=== PATIENT | male | born 1970 | race African-American/Black ===

== ENCOUNTER 2017-06-18 17:41 | Observation (INO) | payer SELFPAY ==
[2017-06-18 18:59] LABS: Troponin I 0.099 ng/mL (< 0.028)
[2017-06-18] MEDS ORDERED: Morphine 4 MG/ML VIAL ONE (19:10)
[2017-06-18] MEDS ORDERED: Nitroglycerin 2% Ointment 1 INCH/1 GM Packet ONE (19:11)
[2017-06-18] MEDS ORDERED: Ondansetron ODT 4 MG TAB ONE (19:11)
[2017-06-18] MEDS ORDERED: Ondansetron HCl/PF 4 MG/2 ML Vial IVP PRN (22:16)
[2017-06-18] MEDS ORDERED: Ondansetron ODT 4 MG TAB SL PRN (22:16)
[2017-06-18] MEDS ORDERED: Nitroglycerin 2% Ointment 1 INCH/1 GM Packet TOP SCH (22:30)
[2017-06-18 22:31] VITALS: BMI 36.6
[2017-06-18 22:46] LABS: Troponin I 0.093 ng/mL (< 0.028)
[2017-06-18] MEDS ORDERED: Nitroglycerin 0.4 MG TAB (25 Tab Bottle) PO PRN (23:28)
[2017-06-18] MEDS ORDERED: Senokot 8.6 MG TAB PO PRN (23:28)
[2017-06-18] MEDS ORDERED: Calcium Carbonate 500 MG ChewTAB PO PRN (23:28)
[2017-06-18] MEDS ORDERED: Labetalol HCl 100 MG/20 ML VIAL SLOW IVP PRN (23:31)
[2017-06-18] MEDS ORDERED: cloNIDine 0.1 MG TAB PO PRN (23:32)
--- NOTE | 2017-06-18 23:58 | HP ---
DATE OF ADMISSION: 06/18/2017 PRIMARY CARE PHYSICIAN: Brien Taylor M.D. PRIMARY PULLBOAT ENGINEER: Tello Alvarado M.D. CHIEF COMPLAINT: Chest discomfort. HISTORY OF PRESENT ILLNESS: The patient is a 46-year-old male with chronic systolic heart failure, s tatus post AICD; coronary artery disease, status post stent; hypertension; dyslipidemia; and chronic kidney disease, presented to the emergency room at [facility] with chest discomfort that has been o ngoing for the last 24 to 48 hours. It is substernal, worse on movement. The pain radiates to his l eft arm and between the scapula. It is more or less constant associated with nausea, diaphoresis, li ghtheadedness, and palpitations. He had one episode of syncope earlier today that lasted for 2 secon ds. He denies injuries or falls secondary to syncope. He denies recent immobilization, travel, feve r, chills, heartburn, cough, shortness of breath or wheezing. PAST MEDICAL HISTORY: 1. Chronic systolic heart failure, status post AICD. 2. Coronary artery disease, status post stent placement at [facility]. 3. Dyslipidemia. 4. Gastroesophageal reflux disease. 5. Chronic kidney disease stage 3. 6. Hypertension. PAST SURGICAL HISTORY: 1. AICD placement in 2006 with generator replacement in 2017. 2. Cardiac catheterization in 2013 at this facility. He had stents placed at [facility]. ALLERGIES: The patient is allergic to PENICILLIN. CURRENT HOME MEDICATIONS: The patient is unable to recall all of his home medications. Family to br ing accurate list of medications. SOCIAL HISTORY: The patient currently lives at home with his family. He is , at the bed side. is the DPOA. No current use of tobacco, alcohol, or drug use. FAMILY HISTORY: Positive for hypertension and congestive heart failure. REVIEW OF SYSTEMS: The following complete review of systems was negative, unless otherwise mentioned in the HPI or below: Constitutional: Weight loss or gain, ability to conduct usual activities. Sk in: Rash, itching. Eyes: Double vision, pain. ENT/Mouth: Nose bleeding, neck stiffness, pain, ten derness. Cardiovascular: Palpitations, dyspnea on exertion, orthopnea. Respiratory: Shortness of breath, wheezing, cough, hemoptysis, fever or night sweats. Gastrointestinal: Poor appetite, abdomi nal pain, heartburn, nausea, vomiting, constipation, or diarrhea. Genitourinary: Urgency, frequency , dysuria, nocturia. Musculoskeletal: Pain, swelling. Neurologic/Psychiatric: Anxiety, depression . Allergy/Immunologic: Skin rash, bleeding tendency. PHYSICAL EXAMINATION: VITAL SIGNS: In the emergency room showed temperature 98.4, respiration 18, pulse rate of 78 with a blood pressure 185/113 with O2 saturation 96% on room air. GENERAL: A 46-year-old male in no apparent distress. Denies any chest discomfort at this time. HEENT: Head atraumatic, normocephalic. Sclerae are anicteric. Moist mucous membranes. No oral les ion. NECK: Supple, no JVD appreciated. No carotid bruit. LUNGS: Clear to auscultation bilaterally, no wheezing, rales, or rhonchi. HEART: S1, S2 present. Regular rate and rhythm. No significant rubs or gallops appreciated. ABDOMEN: Soft, nontender, somewhat distended per patient report. Bowel sounds present. EXTREMITIES: No edema or calf tenderness. NEUROLOGIC: Grossly nonfocal, moves all four extremities. PSYCHIATRY: Alert, awake, oriented x3. SKIN: Warm and dry. LYMPH NODES: No palpable lymph nodes in the neck. PERIPHERAL VASCULAR: Radial pulses palpable bilaterally. MUSCULOSKELETAL: No joint swelling or tenderness. LABORATORY FINDINGS: EKG by my review showed sinus bradycardia with nonspecific ST-T wave changes in lateral leads. Troponin was 0.117. Repeat troponin 0.099. Creatinine was 2.06 with potassium 3.8, sodium 141. Chest x-ray by my review was negative for infiltrate or edema. It showed cardiomegaly. IMPRESSION AND PLAN: 1. Chest discomfort, rule out acute coronary syndrome. Cardiology will be consulted. The patient w ill be kept n.p.o. past midnight. He has a history of stent placement at [facility]. He had a last card iac catheterization at this facility in 2013. His last echocardiogram in 2016 showed left ventricula r ejection fraction of 60%-65% with left ventricular hypertrophy. 2. Syncope that lasted for [address] [facility] has been notified. His device will be interrogated . Await Cardiology input. 3. Hypertension with hypertensive heart disease. We will resume home medications once confirmed. W e will continue nitropatch for now. 4. Chronic kidney disease stage 3. We will avoid nephrotoxic agents. We will hold JASVIR inhibitor du e to renal insufficiency. 5. Coronary artery disease, status post stent placement. Plan as discussed above. 6. Indeterminate troponins, probably secondary to demand ischemia. 7. Dyslipidemia. We will resume statins once medications confirmed. 8. PENICILLIN allergy. 9. Obesity with a BMI of 36.7. Plan of care was discussed with the patient in detail, he stated understanding
[2017-06-19 01:41] LABS: Troponin I 0.096 ng/mL (< 0.028)
[2017-06-19] MEDS: Acetaminophen 325 MG TAB PO PRN ×2 (03:14→23:34)
[2017-06-19] MEDS ORDERED: Morphine 4 MG/ML VIAL IV PRN (07:59)
[2017-06-19] MEDS ORDERED: Morphine 4 MG/ML VIAL IV SCH (08:00)
[2017-06-19] MEDS ORDERED: Carvedilol 25 MG TAB PO SCH (08:00)
[2017-06-19] MEDS ORDERED: Aspirin 325 MG TAB PO SCH (09:00)
[2017-06-19] MEDS ORDERED: NIFEdipine XL 60 MG TAB PO SCH (09:00)
[2017-06-19] MEDS ORDERED: hydrALAZINE 20 MG/ML VIAL SLOW IVP PRN (10:09)
[2017-06-19] MEDS ORDERED: cloNIDine 0.3 MG TAB PO SCH ×2 (12:30→21:00)
--- NOTE | 2017-06-19 13:42 | CON ---
DATE OF CONSULTATION: 06/19/2017 HISTORY OF PRESENT ILLNESS: Patient is a 46-year-old gentleman who presents for evaluation of chest discomfort and syncope. The patient has a previous history of coronary artery disease. He apparently suffered a myocardial infarction in 2006. He subsequently has undergone placement of automatic implantable cardiac defibrillator. The patient presented in 2013 with chest pain and he underwent cardiac catheterization. He was found to have normal coronary arteries. The patient also has been admitted on several occasions with chest discomfort. He has undergone a Cardiolite stress test which has revealed normal ejection and no evidence of ischemia. The patient also has a history of syncope. He underwent an EP evaluation in 12/2016. The patient states that he has continued to have chest discomfort. He has had several times a week discomfort that can last up to 30 minutes. He reports chest pain with exertion. The patient states that he presented with left-sided chest pain that has been continuous for the past 2 days. It is made worse whenever with movement. He states that he still continues to feel discomfort PAST MEDICAL HISTORY: 1. Hypertension. 2. History of coronary artery disease. 3. Chronic renal insufficiency. 4. Hypertension. 5. Dyslipidemia. PAST SURGICAL HISTORY: None. ALLERGIES: PENICILLIN. SOCIAL HISTORY: Nonsmoker. FAMILY HISTORY: Positive family history of heart disease. MEDICATIONS: See nursing list. REVIEW OF SYSTEMS: Ten-point system noticeable for weight loss. PHYSICAL EXAMINATION: GENERAL: Obese gentleman in no acute distress. VITAL SIGNS: Blood pressure is 171/98. NECK: No jugular vein distention. LUNGS: Clear to auscultation. HEART: Regular rate and rhythm, normal S1, S2, no murmurs. ABDOMEN: Nondistended. EXTREMITIES: Showed no edema. SKIN: Warm and dry. LABORATORY DATA AND IMAGING DATA: His white blood cell count 7.1, hemoglobin 14.3, hematocrit 43.8, his platelets are 288. His sodium was 141, potassium 3.8 , chloride 108, bicarbonate 20, BUN 17, creatinine is 2.0. Troponin was 0.096. His EKG revealed him to have normal sinus rhythm and otherwise unremarkable ECG. IMPRESSION: 1. Atypical chest pain. 2. Hypertension, poorly controlled. 3. Chronic renal insufficiency. 4. History of coronary artery disease. 5. History of an automatic implantable cardiac defibrillator. 6. Dyslipidemia. This gentleman presents with atypical chest pain. He has had a previous stress test which revealed no evidence of ischemia. The patient has atypical chest pain. He has had pain for nearly 48 hours without any significant evidence of myocardial infarction. From a cardiac standpoint, his blood pressure again is poorly controlled. We will increase the dose of his nifedipine. We will perform a repeat stress to make sure there is no evidence of ischemia.With chronic renal insufficiency, I would only proceed with cardiac catheterization if there is evidence of ischemia or objective evidence of myocardial injury. We will follow this patient with you through his hospitalization. HERMINIA
--- NOTE | 2017-06-19 14:30 | PDOC.PN ---
- Subjective Encounter Start Date: 06/19/17 Encounter Start Time: 07:00 Pt seen for followup re: chest pain. Reports on and off chest pain, no nausea or vomiting. - Objective Resuscitation Status: Resuscitation Status FULL:Full Resuscitation MAR Reviewed: Yes Vital Signs & Weight: Vital Signs (12 hours) Temp Pulse Resp BP BP Pulse Ox 06/19/17 13:14 190/115 H 06/19/17 10:57 68 18 171/98 H 93 L 06/19/17 10:16 64 06/19/17 09:40 57 L 18 191/114 H 92 L 06/19/17 08:00 66 18 92 L 06/19/17 07:58 190/115 H 06/19/17 07:57 61 190/115 H 06/19/17 07:43 98.3 F 61 12 190/116 H 06/19/17 07:31 98.4 F 60 18 06/19/17 03:00 98.4 F 60 18 166/86 H 92 L Weight Weight 248 lb 8 oz I&O: 06/18/17 06/19/17 06/20/17 06:59 06:59 06:59 Intake Total 100 Output Total 350 Balance -250 EKG Reviewed by me: Yes (Tele: NSR) Phys Exam - Physical Examination Obese HEENT: moist MMs, sclera anicteric, TM's clear, oral pharynx no lesions Neck: no nodes, no JVD, supple, full ROM Respiratory: no wheezing, no rales, no rhonchi, clear to auscultation bilateral Cardiovascular: RRR, no rub S1, s2 Gastrointestinal: soft, non-tender, no distention, positive bowel sounds Neurological: moves all 4 limbs Psychiatric: normal affect, A&O x 3 Dx/Plan (1) Chest pain Code(s): R07.9 - CHEST PAIN, UNSPECIFIED Status: Acute Comment: Monitor on telemetry, PRN nitrates and morphine, cardiology consult pending. (2) Chronic systolic heart failure Code(s): I50.22 - CHRONIC SYSTOLIC (CONGESTIVE) HEART FAILURE Status: Chronic Comment: stable (3) Dyslipidemia Code(s): E78.5 - HYPERLIPIDEMIA, UNSPECIFIED Status: Chronic Comment: continue Zetia (4) Hypertension Code(s): I10 - ESSENTIAL (PRIMARY) HYPERTENSION Status: Chronic Comment: Monitor vital signs, titrate antihypertensives as needed (5) Obesity (BMI 30-39.9) Code(s): E66.9 - OBESITY, UNSPECIFIED Status: Chronic - Plan * . Review of Systems - Review of Systems Constitutional: negative: fever, chills, sweats, weakness, malaise Respiratory: SOB with Excertion. negative: Cough, Shortness of Breath, Sputum, Wheezing Cardiovascular: chest pain. negative: palpitations, orthopnea, paroxysmal nocturnal dyspnea, edema, light headedness Gastrointestinal: negative: Nausea, Vomiting, Abdominal Pain, Diarrhea, Constipation, Melena, Hematochezia Genitourinary: negative: Dysuria, Frequency, Incontinence, Hematuria, Retention - Medications/Allergies Allergies/Adverse Reactions: Allergies Allergy/AdvReac Type Severity Reaction Status Date / Time Penicillins Allergy Severe Anaphylaxis Verified 04/03/15 22:42 Medications: Current Medications Acetaminophen (Tylenol) 650 mg PO Q4H PRN PRN Reason: Headache/Fever or Pain Last Admin: 06/19/17 03:14 Dose: 650 mg Aspirin (Aspirin) 325 mg PO DAILY [facility] Last Admin: 06/19/17 07:57 Dose: 325 mg Calcium Carbonate (Tums) 1,000 mg PO Q4H PRN PRN Reason: Heartburn or Indigestion Carvedilol (Coreg) 12.5 mg PO BID-[facility] Last Admin: 06/19/17 07:57 Dose: 12.5 mg Clonidine (Catapres) 0.1 mg PO Q4H PRN PRN Reason: Systolic BP > 180 Last Admin: 06/19/17 07:58 Dose: 0.1 mg Clonidine (Catapres) 0.3 mg PO BID [facility] Clonidine (Catapres) 0.3 mg PO NOW [facility] Stop: 06/19/17 14:30 Last Admin: 06/19/17 13:14 Dose: Not Given Hydralazine HCl (Apresoline) 10 mg SLOW IVP Q6H PRN PRN Reason: FOR SBP > 170 Last Admin: 06/19/17 10:16 Dose: 10 mg Hydralazine HCl (Apresoline) 75 mg PO TID [facility] Labetalol HCl (Normodyne) 10 mg SLOW IVP Q4H PRN PRN Reason: Systolic BP > 180 Morphine Sulfate (Morphine) 2 mg IV Q4H PRN PRN Reason: Pain Nifedipine (Procardia Xl) 60 mg PO DAILY [facility] Last Admin: 06/19/17 07:57 Dose: 60 mg Nitroglycerin (Nitrostat) 0.4 mg PO Q5MIN PRN PRN Reason: Chest Pain Last Admin: 06/19/17 03:14 Dose: 0.4 mg Ondansetron HCl (Zofran) 4 mg IVP Q6H PRN PRN Reason: Nausea/Vomiting Ondansetron HCl (Zofran Odt) 4 mg SL Q6H PRN PRN Reason: Nausea/Vomiting Last Admin: 06/19/17 03:09 Dose: 4 mg Senna (Senokot) 2 tab PO HSPRN PRN PRN Reason: Constipation Sodium Chloride (Flush - Normal Saline) 10 ml IVF PRN PRN PRN Reason: Saline Flush
[2017-06-19] MEDS ORDERED: NITROGLYCERIN 0.3 MG SL PRN (14:32)
[2017-06-19] MEDS: hydrALAZINE 25 MG TAB PO SCH ×2 (14:44→19:34)
[2017-06-19] MEDS ORDERED: hydrALAZINE 25 MG TAB PO SCH (15:00)
[2017-06-19] MEDS: Carvedilol 6.25 MG TAB PO SCH (19:33)
[2017-06-19] MEDS: cloNIDine 0.3 MG TAB PO SCH (19:34)
[2017-06-20] MEDS: hydrALAZINE 25 MG TAB PO SCH ×2 (08:13→15:20)
[2017-06-20] MEDS: cloNIDine 0.3 MG TAB PO SCH (08:15)
[2017-06-20] MEDS: Carvedilol 6.25 MG TAB PO SCH (08:16)
[2017-06-20] MEDS ORDERED: NIFEdipine XL 60 MG TAB PO SCH (09:00)
[2017-06-20] MEDS ORDERED: Ezetimibe 10 MG TAB PO SCH (09:00)
[2017-06-20] MEDS ORDERED: NIFEdipine XL 90 MG TAB PO SCH (09:00)
[2017-06-20 12:07] VITALS: BP 154/88; TEMP 97.3
--- NOTE | 2017-06-20 14:10 | PDOC.CTH ---
Cardiology Progress Note - Subjective Resting, awakens easily. Complains of shortness of breath with minimal activity , no change. Describes left-sided chest "aching", improved since yesterday. No overnight events, no cardiac events. Awaiting ST results. - ROS chest pain, shortness of breath - Objective Vital Signs Temp Pulse Resp BP BP Pulse Ox 06/20/17 12:01 97.3 F L 51 L 12 154/88 H 99 06/20/17 09:22 155/89 H 06/20/17 08:16 155/89 H 06/20/17 08:15 56 L 155/89 H 06/20/17 08:13 56 L 155/89 H 06/20/17 07:25 98.2 F 56 L 12 155/89 H 96 06/20/17 07:21 98.2 F 59 L 18 06/20/17 05:10 98.2 F 59 L 18 154/89 H 89 L Weight 248 lb 8 oz 06/19/17 06/20/17 06/21/17 06:59 06:59 06:59 Intake Total 100 1620 Output Total 350 1100 Balance -250 520 - Physical Examination General/Neuro: alert & oriented x3, NAD Neck: no JVD present Lungs: CTA, unlabored respirations Heart: RRR Abdomen: NT/ND - Telemetry Telemetry Rhythm: SR - Labs Troponin/CKMB Troponin I 0.096 ng/mL (< 0.028) H 06/19/17 01:00 - Assessment/Plan 1.CAD, s/p PCI, atypical chest pain-normal [facility] 2013, normal [employer]. Preliminary ECG stress revealed no changes, awaiting nuc images. Max trop 0.099, likely demand ischemia r/t chronic renal insufficiency. Cont ASA 81mg. 2.Chronic systolic HF-appears euvolemic. Cont carvedilol, no ACEi/ARB r/t renal insufficiency, single-chamber ICD in place, most recent Optivol level normal. 3.HTN-poorly controlled, titrate antihypertensives as tolerated, improved on increased dose nifedipine 4.Hyperlipidemia-intolerant of statins, caused myalgia. Cont ezetimibe 5.Syncope-brief episode ,no recurrence, evaluated by EP, no significant events per ICD interrogation (no VT, VF). Okay to discharge home if nuc med ST normal. Follow-up with Dr. Alvarado in [address] shows evidence of ischemia, will require further work-up.
--- NOTE | 2017-06-20 14:31 | NM ---
MYOCARDIAL PERFUSION STUDY: DATE: 06/20/17. RADIOPHARMACEUTICALS: 32 mCi Technetium 99m sestamibi, IV at stress, and 10.2 mCi Technetium 99m sestamibi, IV at rest. HISTORY: Chest pain. History of myocardial infarction and prior cardiac catheterization. The patient has cor onary artery disease and hypertension. MEDICATIONS: 20.9 mL (62.7 mg) adenosine, IV. COMPARISON: Prior myocardial perfusion study on 03/18/16. FINDINGS: There is normal uptake and distribution of radiotracer seen throughout the left ventricular myocardiu m on the resting and stress acquisitions. No reversible defect is identified. Gated images show nor mal ventricular wall motion and wall thickening. The calculated left ventricular ejection fraction i s 58%. The left ventricular ejection fraction on the prior study in 2017 was 62%. IMPRESSION: 1. Normal myocardial perfusion study without evidence of a reversible defect seen to suggest ischemi a. 2. Normal left ventricular ejection fraction of 58%. POS: SOPHY
--- NOTE | 2017-06-20 23:00 | DIS ---
PRIMARY CARE PROVIDER: Brien Taylor MD DATE OF ADMISSION: 06/18/2017 DATE OF DISCHARGE: 06/20/2017 DISCHARGE DIAGNOSES: 1. Chest pain. 2. Hypertension. CONDITION OF PATIENT ON THE DAY OF DISCHARGE: Stable. I assessed Mr. Alfonso on the day of discharge. He reports chest pain has improved. Vital signs are stable. S1 and S2 are heard, regular. Lungs are clear to auscultation bilaterally. CONSULTATIONS DURING THIS HOSPITALIZATION: Cardiology, Dr. Alvarado. HOSPITAL COURSE: Mr. Alfonso is a pleasant, 46-year-old gentleman, who was admitted to [facility] on 06/18/2017 for chest pain. He was seen by Cardiology Service, who recommended stress test. He underwent nuclear stress test on 06/20/2017, which was a normal myocardial perfusion study without evidence of reversible defect seen to suggest ischemia. He had normal left ventricula r ejection fraction of 58%. He was also found to be hypertensive during this hospitalization. His nifedipine dose has been incre ased to 90 mg daily. He has been advised to check his blood pressures and heart rate 3 times a day a nd show the readings to his primary care provider. He also had a normal D-dimer during this hospitalization. Many thanks for allowing me to participate in your patient's care. Please feel free to contact me wi th any questions or concerns. DISCHARGE MEDICATIONS: Include aspirin 81 mg daily, Coreg 12.5 mg 2 times a day, vitamin D 1000 unit s daily, clonidine 0.3 mg 2 times a day, Zetia 10 mg daily, hydralazine 75 mg 3 times a day, Procardi a-XL 90 mg daily, and nitroglycerin p.r.n. DISCHARGE DESTINATION: Home.
--- NOTE | 2017-06-27 18:14 | EKG ---
Test Reason : Blood Pressure : / mmHG Vent. Rate : 056 BPM Atrial Rate : 056 BPM P-R Int : 192 ms QRS Dur : 102 ms QT Int : 424 ms P-R-T Axes : 061 011 006 degrees QTc Int : 409 ms Sinus bradycardia Septal infarct , age undetermined Abnormal ECG Confirmed by DELORIS MCCOY MD ([id number]), associate entertainment editor NILAM DESAI ([id number]) on 06/27/2017 6:13:44 PM Referred By: Confirmed By:DELORIS MCCOY MD
== END 2017-06-20 18:03 | disposition home or self-care (01) ==
LOC: ERS 17:41 → 2SW 20:02 → SCSEROBS 06-19 09:14 → 2SW 06-19 09:17
PROVIDERS: ADMIT Internal Medicine; ATTEND Internal Medicine
DX: R07.89 Other chest pain (principal); R55 Syncope and collapse; I13.0 Hypertensive heart and chronic kidney disease with heart failure and stage 1 through stage 4 chronic kidney disease, or unspecified chronic kidney disease; N18.3 Chronic kidney disease, stage 3 (moderate); I50.22 Chronic systolic (congestive) heart failure; I25.10 Atherosclerotic heart disease of native coronary artery without angina pectoris; E78.5 Hyperlipidemia, unspecified; K21.9 Gastro-esophageal reflux disease without esophagitis; E66.9 Obesity, unspecified; Z68.36 Body mass index [BMI] 36.0-36.9, adult; Z79.82 Long term (current) use of aspirin; Z79.899 Other long term (current) drug therapy; Z88.0 Allergy status to penicillin; Z95.810 Presence of automatic (implantable) cardiac defibrillator; Z95.5 Presence of coronary angioplasty implant and graft
CPT/HCPCS: 36415; 78452; 84484; 85379; 93005; 93017; 94760; 96374; 96375; 96376; A9500; G0378; J0153; J0360; J2270; Q0162

== ENCOUNTER 2018-01-15 18:45 | Observation (INO) | payer SELFPAY ==
[2018-01-15 21:13] LABS: CKMB 1.8 ng/mL (0-6.6)
[2018-01-15] MEDS ORDERED: Ondansetron PF 4 MG/2 ML Vial IVP PRN (21:28)
[2018-01-15] MEDS ORDERED: Acetaminophen 325 MG TAB PO PRN (21:28)
[2018-01-15] MEDS ORDERED: Aspirin 300 MG Suppository PR SCH (21:30)
[2018-01-16 02:43] LABS: #Eosinphils 0.2 thou/uL (0.0-0.7); #Lymphocytes 1.5 thou/uL (1.20-3.40); #Monocytes 0.6 thou/uL (0.11-0.59); %Basophils 0.4 % (0.0-1.0); %Eosinophils 2.8 % (0.0-10.0); %Monocytes 7.7 % (0.0-10.0); %Neutrophils 69.1 % (42.0-75.0); Hemoglobin 14.3 g/dL (14.0-18.0); Mean Corpuscular Hemoglobin 28.3 pg (27.0-31.0); Mean Corpuscular Volume 83.4 fL (78.0-98.0); Platelet Count 307 thou/uL (130-400); Red Blood Cell (RBC) Count 5.04 mill/uL (4.70-6.10); White Blood Cell (WBC) Count 7.3 thou/uL (4.8-10.8)
[2018-01-16 03:31] LABS: CKMB 1.5 ng/mL (0-6.6)
[2018-01-16 03:55] LABS: Anion Gap 13 mmol/L (10-20); BUN (Urea Nitrogen) 18 mg/dL (8.9-20.6); Calc. Creatinine Clearance 90 mL/min (70-130); Calcium 9.4 mg/dL (7.8-10.44); Carbon Dioxide 27 mmol/L (22-29); Chloride 101 mmol/L (98-107); Estimated GFR-MDRD 52; Glucose 103 mg/dL (70-105); Potassium 3.3 mmol/L (3.5-5.1); Sodium 138 mmol/L (136-145)
[2018-01-16] MEDS: Enoxaparin Sodium 40 MG/0.4 ML SYRINGE SC SCH (08:45)
[2018-01-16] MEDS ORDERED: Nitroglycerin 0.4 MG TAB (25 Tab Bottle) SL PRN (10:49)
[2018-01-16] MEDS: hydrALAZINE 25 MG TAB PO SCH ×2 (12:01→20:30)
[2018-01-16] MEDS ORDERED: NIFEdipine XL 90 MG TAB PO SCH (15:30)
[2018-01-16] MEDS ORDERED: Carvedilol 25 MG TAB PO SCH (15:30)
[2018-01-16] MEDS ORDERED: cloNIDine 0.3 MG TAB PO SCH (15:30)
--- NOTE | 2018-01-16 19:12 | HP ---
PRIMARY CARE PHYSICIAN: Brien Taylor MD CHIEF COMPLAINT: Vibration from his AICD. HISTORY OF PRESENT ILLNESS: Mr. Alfonso went to the emergency room at [facility] on 01/15/2018 to have his defibrillator evaluated. He reports that it had gone off 4 times. Reports he was outside cooking when he heard an alarm and felt a vibration. It caused a little bit of pain in his chest. He reports that it happened twice prior to going to the emergency room and twice in the emergency room. The patient does have a history of a non-STEMI in 2013. His pacemaker was placed in 2011 after having a syncope episode. He did have a stent placement in 2006. His purchaser automotive parts is Dr. Nicolas. The patient reported that his blood pressure was elevated and he had some chest pain, dizziness, and a headache prior to each of the different relations. Denies that he has missed any of his normal prescriptions. He has been compliant. He was evaluated and sent to [facility] for admission to have his AICD interrogated and evaluated. Based on complaints and risk factors, the patient was admitted to the observation unit for Cardiology consult and AICD interrogation. PAST MEDICAL HISTORY: Includes an NC in June 2013, hyperlipidemia, hypertension. Reports has had 2 MIs, one in 2011 and one in 2013. Has stage 4 kidney failure. PAST SURGICAL HISTORY: AICD placed in 2011, cardiac stent placement in 2006 and 2011, and cardiac cath again in 2013, which showed normal vessels. Denies any psych history. SOCIAL HISTORY: The patient reports that he drinks socially. He lives at home. He has no smoking history. He denies any drug use. FAMILY HISTORY: Reports hypertension on both sides of his family. KNOWN ALLERGIES: Penicillin. HOME MEDICATIONS: Include the followin. Aspirin 81 mg p.o. daily. 2. Coreg 12.5 mg p.o. daily. 3. Vitamin D one capsule 1000 mg p.o. daily. 4. Clonidine 0.3 mg p.o. b.i.d. 5. Hydralazine 75 mg p.o. t.i.d. 6. Nitroglycerin 0.3 mg sublingual q.5 minutes p.r.n. chest pain. 7. Procardia XL 90 mg p.o. daily. REVIEW OF SYSTEMS: CONSTITUTIONAL: The patient reports generalized weakness, dizziness. Denies fever or chills. EYES: Negative review of systems. ENT: Denies any ear, nose, or throat pain. CARDIOVASCULAR: Does report some chest pain. Does report tingling around his defibrillator x4 with associated chest pain and dizziness. RESPIRATORY: Denies cough, shortness of breath. GI: Denies any abdominal pain, nausea, vomiting, diarrhea, or constipation. MUSCULOSKELETAL: Negative review of systems. SKIN: Denies any skin changes or rash. NEUROLOGIC: Does report some dizziness. Otherwise, negative. ENDOCRINE: Negative review of system. HEMOLYMPHATIC: Negative review of system. PSYCH: Denies any changes to mood. Denies any suicidal or homicidal ideation. Note, all other review of systems is negative unless mentioned in the HPI. PHYSICAL EXAMINATION: VITAL SIGNS: Temperature is 98.1, pulse is 60, respirations are 18, and blood pressure 171/92. CONSTITUTIONAL: The patient appears nontoxic, alert to person, place, and time. No apparent distress. HEAD: Findings are atraumatic, normocephalic. EYES: Eyelids are normal to inspection. Pupils are equally round and reactive to light. Extraocular muscles are intact. ENT: Mouth exam is normal. Mucous membranes are moist. NECK: Normal range of motion. Trachea is midline. RESPIRATORY/CHEST: No respiratory distress. Breath sounds are clear. CARDIOVASCULAR: Implanted device to upper left chest. Normal heart rate and rhythm. Heart sounds are normal. ABDOMEN: Male. Nontender. Bowel sounds are heard. No peritoneal signs. BACK: Normal inspection. Normal range of motion. No CVA tenderness. EXTREMITIES: Upper extremities; normal inspection, normal range of motion. Lower extremities; normal inspection, normal range of motion. Pedal pulses are intact. No edema is noted. NEURO: The patient is oriented to person, place, and time. Speech is normal. No focal or sensory deficits. SKIN: Warm, dry, and normal in color. PSYCH: The patient is oriented to person, place, and time. Normal affect. ASSESSMENT AND PLAN: 1. Automatic implantable cardioverter-defibrillator, possible firing. We will trend troponin, interrogate automatic implantable cardioverter-defibrillator. Consult Cardiology and possibly Electrophysiology. 2. Hypertension. We will continue home medications and monitor vital signs. 3. Deep vein thrombosis and gastrointestinal prophylaxis will be started. 4. Hospital course will depend on clinical findings. Job ID: [id number]
[2018-01-16] MEDS: cloNIDine 0.3 MG TAB PO SCH (20:30)
[2018-01-16] MEDS: Carvedilol 25 MG TAB PO SCH (20:31)
[2018-01-16] MEDS ORDERED: Carvedilol 6.25 MG TAB PO SCH (21:00)
[2018-01-17 07:10] LABS: #Basophils 0.1 thou/uL (0.0-0.2); #Eosinphils 0.2 thou/uL (0.0-0.7); #Monocytes 0.6 thou/uL (0.11-0.59); %Eosinophils 2.4 % (0.0-10.0); %Lymphocytes 15.2 % (21.0-51.0); %Monocytes 8.7 % (0.0-10.0); %Neutrophils 72.8 % (42.0-75.0); Hemoglobin 13.3 g/dL (14.0-18.0); Mean Corpuscular HGB CONC 33.8 g/dL (32.0-36.0); Mean Corpuscular Hemoglobin 28.2 pg (27.0-31.0); Mean Corpuscular Volume 83.3 fL (78.0-98.0); Mean Platelet Volume 7.4 fL (7.4-10.4); Platelet Count 276 thou/uL (130-400); RBC Distribution Width 12.6 % (11.5-14.5); Red Blood Cell (RBC) Count 4.73 mill/uL (4.70-6.10); White Blood Cell (WBC) Count 6.9 thou/uL (4.8-10.8)
[2018-01-17 07:25] LABS: ALT (SGPT) 16 U/L (8-55); AST (SGOT) 13 U/L (5-34); Albumin 3.4 g/dL (3.5-5.0); Alkaline Phosphatase 97 U/L (40-150); Anion Gap 12 mmol/L (10-20); BUN (Urea Nitrogen) 21 mg/dL (8.9-20.6); Bilirubin, Total 0.2 mg/dL (0.2-1.2); Calc. Creatinine Clearance 86 mL/min (70-130); Carbon Dioxide 23 mmol/L (22-29); Chloride 106 mmol/L (98-107); Cholesterol 252 mg/dl (< 200 Desired); Estimated GFR-MDRD 49; Globulin 3.5 g/dL (2.4-3.5); Glucose 127 mg/dL (70-105); HDL Cholesterol 42 mg/dL (>60 Neg Risk); LDL Cholesterol, Calculated 163 mg/dL; Potassium 3.8 mmol/L (3.5-5.1); Protein, Total 6.9 g/dL (6.0-8.3); Sodium 137 mmol/L (136-145); Triglycerides 237 mg/dL (Less than 150)
[2018-01-17] MEDS: hydrALAZINE 25 MG TAB PO SCH ×3 (08:16→21:34)
[2018-01-17] MEDS: cloNIDine 0.3 MG TAB PO SCH ×2 (08:17→21:34)
[2018-01-17] MEDS: Carvedilol 25 MG TAB PO SCH ×2 (08:17→21:34)
[2018-01-17] MEDS: NIFEdipine XL 90 MG TAB PO SCH (08:17)
[2018-01-17] MEDS: Enoxaparin Sodium 40 MG/0.4 ML SYRINGE SC SCH (08:17)
--- NOTE | 2018-01-17 09:22 | PDOC.CTH ---
<Jasmin Milan - Last Filed: 01/17/18 15:33> Cardiology Progress Note - Objective Vital Signs Temp Pulse Resp BP BP Pulse Ox 01/17/18 11:45 97.3 F L 68 24 H 122/67 94 L 01/17/18 07:24 97.6 F 60 20 143/94 H 94 L 01/17/18 04:25 67 18 140/89 Weight 268 lb 8 oz 01/16/18 01/17/18 01/18/18 06:59 06:59 06:59 Intake Total 1340 4 Balance 1340 4 - Labs Result Diagrams: 01/17/18 06:28 01/17/18 06:28 Troponin/CKMB CK-MB (CK-2) 1.5 ng/mL (0-6.6) 01/16/18 02:26 Troponin I 0.232 ng/mL (< 0.028) H 01/16/18 02:26 - Assessment/Plan Pt. actually did not have discharges from the AICD. He heard noise. Eval. indicates a possible lead abnormality. Pt. seen and eval. by me. I otherwise agree with the A/P by the REPULPING SUPERVISOR. EP to see pt. tomorrow. Chest clear. RRR. <Sapphire Deleon - Last Filed: 01/17/18 18:42> Cardiology Progress Note - Subjective The pt seen and examined. No overnight events. No cardiac complaints. He complains of SOB and requires 2LNC. - Objective Vital Signs Temp Pulse Resp BP BP Pulse Ox 01/17/18 07:24 97.6 F 60 20 143/94 H 94 L 01/17/18 04:25 67 18 140/89 01/17/18 00:18 95 01/16/18 23:34 98.2 F 65 24 H 104/55 L 95 Weight 268 lb 8 oz 01/16/18 01/17/18 01/18/18 06:59 06:59 06:59 Intake Total 1340 Balance 1340 - Physical Examination General/Neuro: alert & oriented x3 Neck: no JVD present Lungs: CTA Heart: RRR Abdomen: soft Extremities: other: (No edema) - Telemetry Telemetry Rhythm: SR - Labs Result Diagrams: 01/17/18 06:28 01/17/18 06:28 Troponin/CKMB CK-MB (CK-2) 1.5 ng/mL (0-6.6) 01/16/18 02:26 Troponin I 0.232 ng/mL (< 0.028) H 01/16/18 02:26 - Assessment/Plan 1. S/p multiple AICD discharges - EP consult for RV defib lead and SVC lead impedance. Cont. to monitor on tele. 2. CAD with s/p stent in 2006 and 2013 - stable; on BBlocker and ASA. Crestor will be started from today 3. HTN - stable 4. CKD stage 4 - no changed 5. Hyperlipidemia - Crestor will be started from today. MAR reviewed * Dr Alvarado's pt Review of Systems - Review of Systems Constitutional: reports: no symptoms reported EENTM: reports: no symptoms reported Respiratory: reports: see HPI Cardiac (ROS): reports: no symptoms reported ABD/GI: reports: no symptoms reported : reports: no symptoms reported Musculoskeletal: reports: no symptoms reported
[2018-01-17] MEDS ORDERED: Furosemide 40 MG/4 ML VIAL SLOW IVP SCH (10:30)
[2018-01-17] MEDS ORDERED: Senokot S 8.6-50 MG TAB PO PRN (11:54)
--- NOTE | 2018-01-17 12:05 | PDOC.PN ---
- Subjective Encounter Start Date: 01/17/18 Encounter Start Time: 10:15 Subjective: Patient examined this morning -: Patient reports feeling more short of breath this morning -: Also c/o of feeling "swollen". O2 applied last night due to CP. - Objective Resuscitation Status - Order Detail: 01/15/18 21:28 Resuscitation Status Routine Resuscitation Status: FULL: Full Resuscitation Vital Signs & Weight: Vital Signs (12 hours) Temp Pulse Resp BP BP Pulse Ox 01/17/18 11:45 97.3 F L 68 24 H 122/67 94 L 01/17/18 07:24 97.6 F 60 20 143/94 H 94 L 01/17/18 04:25 67 18 140/89 01/17/18 00:18 95 Weight Weight 121.79 kg I&O: 01/16/18 01/17/18 01/18/18 06:59 06:59 06:59 Intake Total 1340 Balance 1340 Result Diagrams: 01/17/18 06:28 01/17/18 06:28 Phys Exam - Physical Examination Constitutional: NAD HEENT: PERRLA, moist MMs Neck: no nodes, no JVD faint rales at bases, PO2 drops to 90-91 on RA, 96% on 2L Abdomen is more distended today Cardiovascular: RRR, no significant murmur AICD in place to left chest Gastrointestinal: non-tender Abdomen is more distended today Musculoskeletal: edema present +2 pedal edema bilaterally Neurological: non-focal, normal sensation, moves all 4 limbs Lymphatic: no nodes Psychiatric: normal affect, A&O x 3 Skin: no rash, normal turgor, cap refill <2 seconds Dx/Plan (1) Chest pain Code(s): R07.9 - CHEST PAIN, UNSPECIFIED Status: Acute Comment: Monitor on telemetry, PRN nitrates and morphine, cardiology consult pending. (2) CAD (coronary artery disease) Code(s): I25.10 - ATHSCL HEART DISEASE OF [place] CORONARY ARTERY W/O ANG PCTRS Status: Chronic (3) CKD (chronic kidney disease) stage 3, GFR 30-59 ml/min Code(s): N18.3 - CHRONIC KIDNEY DISEASE, STAGE 3 (MODERATE) Status: Chronic (4) Chronic systolic heart failure Code(s): I50.22 - CHRONIC SYSTOLIC (CONGESTIVE) HEART FAILURE Status: Chronic Comment: stable (5) Dyslipidemia Code(s): E78.5 - HYPERLIPIDEMIA, UNSPECIFIED Status: Chronic Comment: continue Zetia (6) Elevated troponin Code(s): R74.8 - ABNORMAL LEVELS OF OTHER SERUM ENZYMES Status: Chronic (7) Hypertension Code(s): I10 - ESSENTIAL (PRIMARY) HYPERTENSION Status: Chronic Comment: Monitor vital signs, titrate antihypertensives as needed (8) Obesity (BMI 30-39.9) Code(s): E66.9 - OBESITY, UNSPECIFIED Status: Chronic - Plan cont current plan of care Awaiting EP consult, Dr. Milan consulted and is following -: May need wire in AICD replaced -: Feeling dyspneic today and swollen, also feels a little dizzy -: Can keep on O2 if PO2 remains 90 or below on RA -: Ordered one dose of lasix, will monitor renal function. * .
[2018-01-17] MEDS ORDERED: Rosuvastatin 20 MG TAB PO SCH (21:00)
--- NOTE | 2018-01-17 22:40 | HP ---
PRIMARY CARE DOCTOR: CODE STATUS: Full code. CHIEF COMPLAINT: "My AICD is firing." HISTORY OF PRESENT ILLNESS: This is a 47-year-old male patient with past medical history of coronary artery disease, status post heart catheterization in the past, that was reportedly negative; AICD implant. The patient reported that he was having some kind of tingling sensation and squeezing sensation where the AICD was placed, he fell and the AICD was firing. The symptoms were present for about 10 minutes prior to arrival to the ER, but the patient reported that he has had the same symptoms, like 4 times a day. No clear triggers, no alleviating factors. The patient reported associated nausea during the event. . Symptoms were reported as [id number]. REVIEW OF SYSTEMS: CONSTITUTIONAL: No fever, chills, or generalized weakness. RESPIRATORY: , sputum production, . CARDIOVASCULAR: The patient has chest pain, palpitation. GASTROINTESTINAL: Nausea. No vomiting, diarrhea, or abdominal pain. UTILITY TELLER: No dizziness, headache, or feeling lightheaded. GENITOURINARY: No burning on urination. EXTREMITIES: No leg swelling. All other systems were reviewed and negative except for the findings mentioned above. PAST MEDICAL HISTORY: Positive for coronary artery disease in 06/2013, hyperlipidemia, hypertension, stage 4 chronic kidney disease, [place] x2. PAST SURGICAL HISTORY: Pacemaker defibrillator in 2011, cardiac stent placement in 2006 and 2011, cardiac cath in June 2013 was normal. All veins were clean. PSYCHIATRIC HISTORY: No previous psych history. SOCIAL HISTORY: Drinks socially. Lives at home. No smoking. Denies drug use. FAMILY HISTORY: Positive for hypertension in the family. ALLERGIES: KNOWN ALLERGIES TO PENICILLIN REPORTED. MEDICATIONS: 1. Aspirin. 2. Clonidine. 3. Hydralazine. 4. Nifedipine. 5. Nitroglycerin. 6. Carvedilol. 7. Zetia. PHYSICAL EXAMINATION: VITAL SIGNS: On presentation, blood pressure 186/100 with heart rate of 102, respiratory rate was 26, temperature 99, oxygen saturation was 96% on room air. GENERAL APPEARANCE: The patient is alert, oriented, not in acute distress. HEENT: Eye, normal conjunctivae. Moist oral mucosa. Anicteric. NECK: No JVD. RESPIRATORY: Bilateral air entry. No rales, no wheezing. Symmetric expansion. CARDIOVASCULAR: Normal rate, regular rhythm. No murmurs. No gallops. No edema. ABDOMEN: Soft. Normal bowel sounds. MUSCULOSKELETAL: Baseline range of motion and strength. No tenderness. SKIN: Warm and intact. No pallor. No rash. No redness. EXTREMITIES: Peripheral pulses are present. Capillary refill seems to be intact. NEUROLOGIC: No evidence of any new focal weakness. Baseline speech. Cranial nerves seems to be intact. PSYCHIATRIC: The patient is in good mood. No anxiety. Oriented. Optimal judgment. DIAGNOSTIC STUDIES: EKG was reviewed by myself. The patient has normal sinus rhythm with a rate of 90. The patient has T-wave inversion in V5, V6. No other significant abnormalities. The chest x-ray was reviewed. The patient has no acute cardiopulmonary process. LABORATORY DATA: Labs were reviewed by myself. The patient has a white count of 9.8, hemoglobin 14.2, MCV 84, bands 3%, platelet count 326. Coagulation was not done in this admission. Chemistry: Sodium 137, potassium 3.5, chloride 105, carbon dioxide 23, anion gap 13, BUN 17, creatinine 1.61. The previous creatinine was 2.0, GFR is 55, glucose 95, phosphorus 3.4, calcium 9.1, magnesium 2.2. Troponin today was done. The very first one was 0.234, the second one was 0.243. The patient has a chronic history of elevated troponin in that range. Beta-natriuretic peptide was normal. ASSESSMENT AND PLAN: The patient was placed in the hospital with following medical problems: 1. Possible AICD pacemaker dysfunction leading to mildly elevated troponin. The pacemaker was interrogated. There is no abnormal rhythm seen, but some changes due to impedance of the device, unclear if this might cause any abnormalities of troponin leak. We will defer this evaluation to Cardiology. We will follow recommendations from Dr. Nicolas, who is the patient's primary sheep herder. 2. Uncontrolled hypertension. The patient presented with systolic blood pressure in the 200s. This clearly has improved, reconcile home medications, we will adjust treatment as needed. 3. History of coronary artery disease. Reconcile home medications. The patient has some leak of troponin, unclear etiology. We will trend troponins. We will keep the patient on tele. Workup per Cardiology. The patient had reported a recent catheterization done by Dr. Nicolas that showed clean coronary arteries. Reconcile home medications. 4. Hyperlipidemia. Reconcile home medications. Low-cholesterol diet. 5. Stage 3 chronic kidney disease. The patient has a GFR of 55, creatinine 1.6, remained stable with respect to previous values and all records have been reviewed by myself. 6. Deep venous thrombosis prophylaxis. Job ID: [id number]
[2018-01-18 04:38] LABS: #Eosinphils 0.2 thou/uL (0.0-0.7); #Lymphocytes 1.2 thou/uL (1.20-3.40); #Monocytes 0.7 thou/uL (0.11-0.59); #Neutrophils 4.8 thou/uL (1.40-6.50); %Basophils 0.5 % (0.0-1.0); %Eosinophils 3.1 % (0.0-10.0); %Lymphocytes 16.6 % (21.0-51.0); %Monocytes 9.7 % (0.0-10.0); Hemoglobin 13.4 g/dL (14.0-18.0); Mean Corpuscular HGB CONC 33.8 g/dL (32.0-36.0); Mean Corpuscular Hemoglobin 28.3 pg (27.0-31.0); Mean Corpuscular Volume 83.5 fL (78.0-98.0); Mean Platelet Volume 7.6 fL (7.4-10.4); Platelet Count 276 thou/uL (130-400); RBC Distribution Width 12.8 % (11.5-14.5); Red Blood Cell (RBC) Count 4.75 mill/uL (4.70-6.10); White Blood Cell (WBC) Count 6.9 thou/uL (4.8-10.8)
[2018-01-18 05:00] LABS: ALT (SGPT) 18 U/L (8-55); AST (SGOT) 16 U/L (5-34); Albumin 3.5 g/dL (3.5-5.0); Alkaline Phosphatase 84 U/L (40-150); Anion Gap 14 mmol/L (10-20); BUN (Urea Nitrogen) 18 mg/dL (8.9-20.6); Bilirubin, Total 0.2 mg/dL (0.2-1.2); Calc. Creatinine Clearance 91 mL/min (70-130); Calcium 9.3 mg/dL (7.8-10.44); Carbon Dioxide 24 mmol/L (22-29); Chloride 104 mmol/L (98-107); Estimated GFR-MDRD 52; Globulin 3.6 g/dL (2.4-3.5); Glucose 118 mg/dL (70-105); Potassium 3.5 mmol/L (3.5-5.1); Protein, Total 7.1 g/dL (6.0-8.3); Sodium 138 mmol/L (136-145)
--- NOTE | 2018-01-18 08:17 | CON ---
DATE OF CONSULTATION: 01/16/2018 CARDIOLOGY CONSULT NOTE INDICATION FOR CONSULTATION: This is a 47-year-old patient, who is status post AICD due to a nonischemic cardiomyopathy with a history of arrhythmias in the past, which required an AICD implant in 2006. At this time, he presented to the hospital complaining of hearing noises from the device and had some chest discomfort and was admitted for further evaluation. HISTORY OF PRESENT ILLNESS: This is a very unfortunate 47-year-old gentleman, with AICD implanted in 2006 due to some cardiac arrhythmias, most likely nonsustained ventricular tachycardia with having a syncopal episode. He had a lead revision in 2007. He had AICD generator change out in 2016. He has had some issues with the ventricular lead back in June of this year, but there was no change done at that time, will continue to follow with. He has a history of diastolic dysfunction. He did have a nuclear stress test in June of 2017 after he complained of some chest discomfort, ejection fraction was 58% with no evidence of ischemia. He underwent a cardiac catheterization in the past many years ago. I do not think he has had a recent cardiac catheterization since 2013. At that time, he had ectatic lesions noted, but did not have any flow-limiting disease and no stents were placed. He reports that he had a history of a myocardial infarction in 2006, but I believe this most likely was when he had some type of arrhythmia and required the AICD. I did not see any indication that this patient has had a significant myocardial infarction. A stress test in June of this year did not show any evidence of scar, which will lead me to believe that he has had just the ventricular arrhythmias, but no clear myocardial infarction. He always has a chronic leak apparently from the cardiac enzymes, his troponin I is always indeterminate or elevated. At this time, the cardiac enzymes also slightly indeterminate at 0.024 and is now decreased down to 0.23, which is essentially along with his baseline that he has had in the past. He has actually had some that are higher than that. At this time, he is having no significant chest discomfort or significant shortness of breath.He mainly had been out barbecuing when he noticed a noise from the defibrillator, but he did not receive any shocks. He presented to the emergency room and then was transferred here for further evaluation. At this time, he is stable. He is ambulating without problems, and we have interrogated the device and we will try to make some adjustments to it, but most likely he will need to have a lead revision as he has abnormal impedance on the AICD lead. He has a single lead, which is a dual coil lead and this is involved also in the right ventricle as well as in the superior vena cava aspects of it, and this will need to be most likely replaced. He has had 43 episodes of ventricular tachycardia in the monitoring zone, but the most recent episode was in December 30 of this year. He did have one episode of nonsustained ventricular tachycardia on December 28. He has had no syncopal episodes according to him since he had the defibrillator placed. PAST MEDICAL HISTORY: Significant for the nonischemic cardiomyopathy. AICD placement. He has diastolic dysfunction. He has chronic kidney disease, his creatinine is 1.71. He has hypertension and hypercholesterolemia. He has obesity and most likely has sleep apnea. He has not had a sleep study done, but does have some complaints from the that he had most likely has sleep apnea. His past medical history otherwise is unremarkable. MEDICATIONS: Include; 1. Coreg 12.5 mg b.i.d. 2. Hydralazine 75 mg three times a day. 3. Clonidine 0.3 mg b.i.d. 4. Nitroglycerin. 5. Aspirin 81 mg a day. 6. Procardia XL 90 mg a day. SOCIAL HISTORY: He is . He has nine children, ages 30 to 11. He has no alcohol or tobacco abuse. 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 FAMILY HISTORY: Noncontributory. ALLERGIES: ALLERGIC TO PENICILLIN, WHICH CAUSES HIM TO HAVE EDEMA. REVIEW OF SYSTEMS: He has false teeth. He has had one episode of hematuria about a month ago, for which he will be seeing Dr. Castañeda next week apparently. He has shortness of breath as noted above, most likely associated with his hypertension and diastolic dysfunction. He has right knee swelling on occasion. Otherwise, 12-point review of systems is unremarkable except what is noted in the history of present illness. PHYSICAL EXAMINATION: GENERAL: Reveals a middle-aged gentleman, who is overweight. VITAL SIGNS: Blood pressure 165/98, heart rate is 60 to 70, it shows normal sinus rhythm, respiratory rate is 20. He is afebrile. HEENT: Shows the head to be normocephalic and atraumatic. Carotid pulses are present. There were no bruits. There is no JVD. The thyroid is not enlarged. Oral mucosa is pink and moist. CHEST: Clear to auscultation. There are no rales, rhonchi, or wheezing. CARDIOVASCULAR: Reveals regular rate and rhythm. Normal S1 and S2. I cannot hear an S3 or an S4. There were no significant murmurs, heaves, thrills, bruits, or rubs. He has a well-healed surgical incision over the left infraclavicular area after an AICD implant. There are no abnormalities noted there and no swelling and the wound is well healed. ABDOMEN: Shows obesity with positive bowel sounds. EXTREMITIES: No clubbing, cyanosis, or edema. Pedal pulses are present. NEUROLOGIC: The patient appears to be fully intact. He has normal strength and normal tone. SKIN: Warm and dry. LABORATORY DATA: Shows a creatinine of 1.71, potassium 3.3, blood sugar 103. Hemoglobin 14.3, WBC is 7.3. Troponin I as noted above. IMPRESSION: At this time, 1. Malfunction of the automatic implantable cardioverter defibrillator lead, which most likely will need to undergo replacement or revision. We will discuss this with the shot man and most likely this will need to be done on Thursday. The patient probably should stay in the hospital since he has had some episodes of nonsustained ventricular tachycardia. Even though he has not received any shocks from device, there is always a possibility, especially since he has had some episodes of syncope in the past, most likely associated with his arrhythmia. 2. History of coronary artery disease, which is ectatic in nature and is not obstructive or occlusive in nature and this will continue to be followed. We will continue his aspirin. 3. Chronic kidney disease. This will be dealt with by the primary care service and his probate clerk, it appears to be stable at this time. 4. Hypercholesterolemia. He is at the present time not taking any medicines for cholesterol. I did not have a recent cholesterol level in this gentleman. The most recent level was in October 2015. We will also repeat this level since his LDL at that time was 139, and with his coronary artery disease, he will be advised to keep his cholesterol under much better control. He also had high triglyceride levels also in October of 2015, which are also not being addressed. 5. History of obesity. He will be advised to hopefully have a better diet and lose some weight because of exercise. He should be able to walk without difficulty. 6. Probable sleep apnea. It was advised that the patient to undergo some type of sleep study. He does tell me that sometime in February most likely he will obtain insurance and this may be easier for him to obtain a sleep study once he has insurance that will help pay for the studies. 7. Chronic elevation of the cardiac enzymes. This is most likely due to his diastolic dysfunction and to his cardiomyopathy. He may have ongoing ischemia associated with hypertension due to small-vessel disease. We will discuss the case with Dr. Sanchez who most likely will have to do the lead change and revision on Thursday and we will continue to follow the patient with you throughout his hospital course. Job ID: [id number]
[2018-01-18] MEDS: Enoxaparin Sodium 40 MG/0.4 ML SYRINGE SC SCH (08:50)
[2018-01-18] MEDS: cloNIDine 0.3 MG TAB PO SCH (08:51)
[2018-01-18] MEDS: Carvedilol 25 MG TAB PO SCH (08:51)
[2018-01-18] MEDS: hydrALAZINE 25 MG TAB PO SCH ×2 (08:51→16:15)
[2018-01-18] MEDS: NIFEdipine XL 90 MG TAB PO SCH (08:51)
--- NOTE | 2018-01-18 15:04 | PDOC.PN ---
- Subjective Encounter Start Date: 01/18/18 Encounter Start Time: 15:01 Patient lying in bed, no events overnight. No chest pain, shortness of breath. EP following and planning to transfer patient to [facility] for Lead revision with Dr Watson - Objective Resuscitation Status - Order Detail: 01/15/18 21:28 Resuscitation Status Routine Resuscitation Status: FULL: Full Resuscitation MAR Reviewed: Yes Vital Signs & Weight: Vital Signs (12 hours) Temp Pulse Resp BP BP Pulse Ox 01/18/18 11:28 98.1 F 64 22 H 138/87 95 01/18/18 08:51 66 141/78 H 01/18/18 07:37 97.5 F L 66 20 138/95 H 95 01/18/18 07:12 95 01/18/18 03:32 65 18 141/78 H Weight Weight 268 lb 8 oz I&O: 01/17/18 01/18/18 01/19/18 06:59 06:59 06:59 Intake Total 1340 724 Balance 1340 724 Result Diagrams: 01/18/18 04:04 01/18/18 04:04 Radiology Reviewed by me: Yes Phys Exam - Physical Examination Constitutional: NAD obese HEENT: PERRLA, moist MMs, oral pharynx no lesions Neck: no nodes, no JVD, supple Respiratory: no wheezing, no rales, no rhonchi Cardiovascular: RRR, no significant murmur, no rub Gastrointestinal: soft, non-tender, no distention, positive bowel sounds Musculoskeletal: no edema, pulses present Neurological: non-focal, normal sensation, moves all 4 limbs Lymphatic: no nodes Psychiatric: normal affect, A&O x 3 Skin: no rash, normal turgor, cap refill <2 seconds Dx/Plan - Plan cont current plan of care, DVT proph w/lovenox * EP Dr Sanchez following, planning to transfer patient to [facility] for lead revision with Dr Watson tomorrow * Continue medical management * Monitor VS, labs
[2018-01-18 15:35] VITALS: BP 140/88; TEMP 98.4
--- NOTE | 2018-01-18 20:26 | CON ---
DATE OF CONSULTATION: 01/18/2018 ELECTROPHYSIOLOGY CONSULTATION REASON FOR CONSULTATION: Malfunctioning RV ICD lead. HISTORY OF PRESENT ILLNESS: Mr. Alfonso is a pleasant 47-year-old gentleman with inclusion of a single-chamber ICD secondary to nonischemic cardiomyopathy with a severely reduced ejection fraction in the past. His initial device was implanted in 2006 with Rialta lead, but is since requiring lead revision and placement of a Durata defibrillator lead in 2007. He underwent a generator change in December of 2016. Mr. Alfonso presented to the hospital at this time reporting hearing voices from his device and also endorsed some chest discomfort. He was admitted for further evaluation and cardiac workup. He has had nonsustained ventricular tachycardia in the past of low burden largely, his device reports that he has occasional sinus tachycardia with one-to-one conduction. Most of his recurrent nonsustained VT episodes are in the monitoring zone and the most recent episode was on December 30 of this year by device interrogation. His device interrogation showed substantial drops in his RV lead impedance, initially in the RV coil and now repeatedly in the RV coil, but now also showing substantial drops in impedance as measured by the SVC coil. There have not been any attempted device defibrillations. These drops in impedance likely represent a break in insulation along his Durata ICD lead that was placed in 2007. REVIEW OF SYSTEMS: A 12-point review of systems was conducted and is negative except that listed above in HPI. The patient denies heart racing, palpitations, syncope, near syncope, stroke, stroke-like symptoms, or perceived ICD discharges. Positive for occasional chest pain and noises from his ICD. PAST MEDICAL HISTORY: 1. Chronic systolic heart failure with nonischemic cardiomyopathy. 2. Single-chamber ICD placed 2006 with Rialta lead requiring lead revision in 2007, Durata lead placed, generator changed in December 2016. 3. Coronary artery disease with prior myocardial infarction. 4. Hypertension. 5. Hyperlipidemia. 6. Morbid obesity. 7. Obstructive sleep apnea. 8. Chronic kidney disease. ALLERGIES: PENICILLIN. HOME MEDICATIONS: Include; 1. Coreg 12.5 mg b.i.d. 2. Hydralazine 75 mg t.i.d. 3. Clonidine 0.3 mg p.o. b.i.d. 4. Nitroglycerin sublingual as needed. 5. Aspirin 81 mg daily. 6. Procardia XL 90 mg daily. SOCIAL HISTORY: . Works in the [employer] in [place]. Negative history for alcohol, tobacco, or illicit drug use. FAMILY HISTORY: Negative for sudden cardiac or early-onset coronary artery disease. PHYSICAL EXAMINATION: VITAL SIGNS: Temperature 98.1, pulse 64, blood pressure 138/87, respirations 22 , and oxygen is 95% on room air. GENERAL: This is a morbidly obese gentleman, in no acute distress. He is alert and oriented. Speech is clear. Affect is appropriate. HEENT: Normocephalic and atraumatic. Sclerae anicteric. EOMs are intact. Oral mucosa is moist and pink. NECK: Supple without jugular venous distention. Thyroid is nonpalpable. CHEST: Clear to auscultation bilaterally without wheezes, crackles, or rhonchi. Respirations even and unlabored with good bilateral excursion. CARDIOVASCULAR: Heart rate is irregularly irregular without murmur, rub, or gallop. PMI is nonpalpable. Device is seen at the left infraclavicular fossa without swelling, bruising, or worsening of drainage. ABDOMEN: Obese, soft, nontender without palpable masses and positive bowel sounds are distant, but noted throughout. Hepatojugular reflux is negative. EXTREMITIES: Warm and dry to touch without clubbing, cyanosis, or edema. NEUROLOGIC: Grossly intact cranial nerves 2 through 12, exam is nonfocal. MUSCULOSKELETAL: Gait was not assessed. DATABASE: Hematology; WBC 6.9, hemoglobin 13.4, hematocrit 39.7, and platelet count is 276. Chemistry; sodium 138, potassium 3.5, BUN is 18, creatinine is 1.69, AST 16, and ALT 18. Serial troponins were conducted, peaked at 0.24. Device check was completed. Battery longevity is 10.8 years. As detailed above , there was initially an episode where the RV coil impedance dropped significantly in November of this year and now this is a repeat episode both with the SVC coil and RV coil likely suggesting an insulation break placing at a high risk to have unsuccessfully delivered shock should he have any ventricular arrhythmias that required defibrillation. IMPRESSION: 1. Single-chamber ICD with repeat drops and impedance at RV coil and now at SVC coil. Suggest insulation break. He has had nonsustained VT episodes. For any sustained ventricular arrhythmias, it is questionable that the device would be able to successfully deliver shock to terminate his arrhythmia with the lead malfunctioning in the way it is. 2. Coronary artery disease, ectatic in nature, not obstructive or occlusive in nature, followed by Cardiology and recommend continued aspirin. 3. Chronic kidney disease, stable at this time with a baseline creatinine of approximately 1.6 to 1.7. 4. Morbid obesity. 5. Obstructive sleep apnea. 6. Chronic elevation in cardiac enzymes likely secondary to diastolic dysfunction and his cardiomyopathy according to Cardiology. RECOMMENDATIONS: Recommendation for his malfunctioning ICD lead is extraction and revision. He already has an abandoned Rialta RV lead in there and now malfunctioning Durata lead. Ideally, instead of inserting a third RV defibrillator lead and having 2 abandoned leads, we will have him transferred to [place] for lead extraction and revision with Dr. Avila. We will coordinate with [facility] and have him transferred, accepted under the hospitalist group. The patient is in agreement with this plan. All questions have been answered. Job ID: [id number] MTDD
--- NOTE | 2018-01-20 02:56 | DIS ---
DATE OF ADMISSION: 01/15/2018 DATE OF DISCHARGE: 01/18/2018 PRIMARY CARE PHYSICIAN: Dr. Brien Taylor. DISCHARGE DIAGNOSES: 1. 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 2. Hypertension, stable. 3. Coronary artery disease, stable. 4. Chronic kidney disease, stable. 5. Chronic diastolic dysfunction. 6. Chronic cardiomyopathy, nonischemic, stable. 7. Morbid obesity. 8. Obstructive sleep apnea. 9. Hyperlipidemia. CONSULTATIONS: 1. Cardiology Services, Dr. Milan. 2. Cold Roll Inspector, Dr. Sanchez. PROCEDURES: None. PERTINENT LABORATORY AND DIAGNOSTIC FINDINGS: WBC 6.9, RBC 4.75, hemoglobin 13.4, and platelets 276. Sodium 138, potassium 3.5, creatinine 1.69, glucose 118, AST 16, ALT 18, and alkaline phosphatase 84. Troponin is 0.232. Triglycerides 237, total cholesterol 252, LDL 163, and HDL 42. Chest x-ray showed no acute cardiopulmonary process. AICD interrogation found a malfunctioning lead. HOSPITAL COURSE: Mr. Alfonso is a pleasant 47-year-old male, who had presented to [facility] with some complaints of chest pain that was followed by a vibration in his chest, he had also heard a beeping and alarm in his chest around the area of his defibrillator. He had reported chest pain was mild, but a concern for him, therefore he had to seek further evaluation in the ER. Upon arrival, it was found that his troponins were elevated at 0.24, which seemed to be around his baseline secondary to chronic diastolic dysfunction, CAD with AICD placement. Creatinine was also elevated at 1.61; however, this seemed to be his baseline due to chronic kidney disease. He was admitted under observation for further workup and further evaluation of symptoms and AICD interrogation was performed and found a faulty lead wire of his AICD. Cardiology Service, Dr. Milan and EP Service, Dr. Sanchez were further consulted. Dr. Milan recommended continuing on his home medications for his history of chronic diastolic dysfunction, which seemed to be stable at this time. She had agreed with a consultation with Dr. Sanchez. Dr. Sanchez came and evaluated the patient and it was further determined that the patient would need further wire extraction with revision. Further arrangements were made to transfer the patient to [facility] for AICD wire extraction and revision with Dr. Avila. During hospital course, the patient had developed some mild shortness of breath with mild edema, which had resolved after a single dose of IV Lasix. He was seen and examined prior to discharge. He had no further complaints of chest pain or shortness of breath at that time. His breath sounds were unremarkable; however, heart sounds displayed an irregularly irregular rhythm with a controlled rate. During hospital course, it was also found that the patient had noted a new diagnosis of hyperlipidemia. Therefore, he was started on statin therapy at that time, which he had tolerated well. It was discussed with the patient that he would be discharged and transferred to [facility] in [place] to undergo further AICD lead extraction with Dr. Avila. He was also instructed to follow up with his tariff expert, Dr. Nicolas thereafter along with his PCP, Dr. Brien Taylor, in 1 to 2 weeks. He had verbalized his understanding for discharge plan and he was deemed medically stable for discharge and transfer to [facility]. DISCHARGE MEDICATIONS: 1. Rosuvastatin 20 mg p.o. at bedtime. 2. Carvedilol 12.5 mg oral twice daily. 3. Vitamin D3 one capsule oral daily. 4. Hydralazine 75 mg oral 3 times daily. 5. Clonidine 0.3 mg twice daily. 6. Nitroglycerin 0.3 mg sublingual every 5 minutes as needed for chest pain. 7. Aspirin 81 mg oral daily. 8. Nifedipine 90 mg oral daily. FOLLOWUP: The patient is to follow up with his PCP, Dr. Brien Taylor, in 1 to 2 weeks. He is also to follow up with his primary tariff expert, Dr. Nicolas, in 2 to 4 weeks. CONDITION ON DISCHARGE: Stable. ACTIVITY: As tolerated. DIET: Heart healthy. CODE STATUS: Full code. DISPOSITION: Transfer to [facility] in [place] on 01/18/2018. Job ID: [id number]
== END 2018-01-18 18:51 | disposition short-term general hospital (02) ==
LOC: ERS 18:45 → 2SW 21:15
PROVIDERS: ADMIT Hospitalist; ATTEND Hospitalist
DX: T82.110A Breakdown (mechanical) of cardiac electrode, initial encounter (principal); I13.0 Hypertensive heart and chronic kidney disease with heart failure and stage 1 through stage 4 chronic kidney disease, or unspecified chronic kidney disease; I50.42 Chronic combined systolic (congestive) and diastolic (congestive) heart failure; N18.4 Chronic kidney disease, stage 4 (severe); I25.10 Atherosclerotic heart disease of native coronary artery without angina pectoris; E78.00 Pure hypercholesterolemia, unspecified; I25.2 Old myocardial infarction; E66.01 Morbid (severe) obesity due to excess calories; G47.33 Obstructive sleep apnea (adult) (pediatric); Z79.82 Long term (current) use of aspirin; Z79.899 Other long term (current) drug therapy; Z88.0 Allergy status to penicillin; Z68.39 Body mass index [BMI] 39.0-39.9, adult
CPT/HCPCS: 36415; 80048; 80053; 80061; 82553; 84484; 85025; 90471; 90686; 94760; 96372; 96374; 99285; G0008; G0378; J1650; J1940

== ENCOUNTER 2019-01-19 23:45 | Inpatient (IN) | payer OTHER ==
[2019-01-20] MEDS ORDERED: hydrALAZINE 20 MG/ML VIAL ONE (00:01)
[2019-01-20] MEDS ORDERED: Morphine 4 MG/ML VIAL ONE (00:30)
[2019-01-20] MEDS ORDERED: Ondansetron PF 4 MG/2 ML Vial ONE (00:30)
[2019-01-20] MEDS ORDERED: cloNIDine 0.1 MG TAB ONE (01:02)
[2019-01-20] MEDS ORDERED: Ketorolac Tromethamine 30 MG/ML VIAL ONE (01:45)
--- NOTE | 2019-01-20 04:37 | HP ---
CHIEF COMPLAINT: Elevated blood pressure and headache. HISTORY OF PRESENT ILLNESS: Mr. Alfonso is a 48-year-old male with past medical history of hypertension, chronic kidney disease stage 4, hyperlipidemia, coronary artery disease, myocardial infarction, cardiac stents, pacemaker/defibrillator, among others, presents to [facility] with elevated blood pressure and headache. Blood pressure was elevated as high as 250/120. The patient was placed on Cardene drip and was transferred to our emergency room for further management. Currently, patient is off Cardene drip. Blood pressure is 170/115. As per the patient, his blood pressure is very difficult to control. He is on 5 different antihypertensive medications and according to him, his blood pressure never drops below 170/100. He has some chest discomfort. Denies shortness of breath. Denies leg swelling. Denies nausea, vomiting, fever, or chills. The patient is being admitted to hospital for further management. PAST MEDICAL HISTORY: As mentioned above in history of present illness. PAST SURGICAL HISTORY: 1. Pacemaker/defibrillator. 2. Cardiac stent placement. SOCIAL HISTORY: He chews tobacco. Denies alcohol drinking. FAMILY HISTORY: Reviewed. HOME MEDICATIONS: Please see home medication reconciliation form for updated medications. ALLERGIES: PENICILLIN. REVIEW OF SYSTEMS: Review of 14 systems negative except what is mentioned in history of present illness. PHYSICAL EXAMINATION: GENERAL: The patient is awake, alert, in moderate distress. VITAL SIGNS: Blood pressure is 170/110, respiratory rate 20, pulse is 82, temperature 98. HEAD: Normocephalic, atraumatic. NECK: Supple. No JVD. CHEST: Fair bilateral air entry. HEART: S1, S2. Regular. ABDOMEN: Soft, nontender. Bowel sounds present. NEUROLOGIC: Awake, alert, and oriented x3. No focal deficits. PSYCHIATRIC: Normal mood. EXTREMITIES: No clubbing. No cyanosis. LABORATORY DATA: Troponin 0.13. EKG showed left ventricular hypertrophy. No acute ischemic changes. ASSESSMENT: 1. Hypertensive urgency. 2. Headache. 3. Elevated troponin. 4. Chronic kidney disease stage 4. 5. Hyperlipidemia. 6. Congestive heart failure, chronic. PLAN: 1. Admit. 2. Monitor and control blood pressure. 3. Aspirin. 4. Serial cardiac enzymes. 5. 2D echo. 6. Consult the patient's business analytics specialist in a.m. for evaluation and further recommendations. 7. Reconcile home medications. 8. DVT prophylaxis as appropriate. 9. Expected length of stay, 2 midnights or more. Job ID: [id number]
[2019-01-20 07:46] LABS: Troponin I 0.126 ng/mL (< 0.028)
[2019-01-20] MEDS ORDERED: Metoprolol Tartrate 25 MG TAB ONE (08:46)
[2019-01-20] MEDS ORDERED: Aspirin 325 MG TAB ONE (08:46)
[2019-01-20] MEDS ORDERED: Aspirin 325 mg Enteric Coated Tablet PO SCH (09:00)
[2019-01-20] MEDS: Metoprolol Tartrate 25 MG TAB PO SCH ×2 (09:01→20:53)
[2019-01-20] MEDS ORDERED: NIFEdipine XL 90 MG TAB PO SCH (12:30)
[2019-01-20] MEDS ORDERED: cloNIDine 0.3 MG TAB PO SCH (12:30)
[2019-01-20 15:12] VITALS: BMI 35.6
[2019-01-20] MEDS: hydrALAZINE 25 MG TAB PO SCH ×2 (15:30→20:54)
[2019-01-20] MEDS: Rosuvastatin 20 MG TAB PO SCH (20:53)
[2019-01-20] MEDS: cloNIDine 0.3 MG TAB PO SCH (20:54)
[2019-01-21] MEDS: hydrALAZINE 25 MG TAB PO SCH ×3 (08:46→20:22)
[2019-01-21] MEDS: Metoprolol Tartrate 25 MG TAB PO SCH ×2 (08:46→20:22)
[2019-01-21] MEDS: cloNIDine 0.3 MG TAB PO SCH ×2 (08:46→20:21)
[2019-01-21] MEDS: Aspirin Chewable 81 MG TAB PO SCH (08:46)
[2019-01-21] MEDS: NIFEdipine XL 90 MG TAB PO SCH (08:46)
[2019-01-21] MEDS: Nitroglycerin 0.4 MG TAB (25 Tab Bottle) SL PRN ×3 (11:54→12:04)
[2019-01-21 11:56] LABS: Anion Gap 12 mmol/L (10-20); BUN (Urea Nitrogen) 26 mg/dL (8.9-20.6); Calc. Creatinine Clearance 61 mL/min (70-130); Calcium 9.1 mg/dL (7.8-10.44); Carbon Dioxide 27 mmol/L (22-29); Chloride 100 mmol/L (98-107); Estimated GFR-MDRD 38; Glucose 107 mg/dL (70-105); Potassium 3.9 mmol/L (3.5-5.1); Sodium 135 mmol/L (136-145)
[2019-01-21] MEDS: Rosuvastatin 20 MG TAB PO SCH (20:22)
--- NOTE | 2019-01-22 07:42 | PDOC.HOSPP ---
- Subjective Encounter Date: 01/21/19 Encounter Time: 10:00 Subjective: pt up in bed no complains. still has pain to his right chest area - Objective Vital Signs & Weight: Vital Signs (12 hours) Temp Pulse Resp BP BP Pulse Ox 01/22/19 04:02 98.6 F 62 18 143/80 H 93 L 01/21/19 20:22 67 01/21/19 20:21 122/77 Weight Weight 241 lb 5 oz Result Diagrams: 01/21/19 10:57 Hospitalist ROS - Review of Systems Cardiovascular: reports: chest pain Gastrointestinal: denies: nausea, vomiting, abdominal pain, diarrhea, constipation, melena, hematochezia, other Genitourinary: denies: dysuria, frequency, incontinence, hematuria, retention, other - Medication Medications: Active Medications Generic Name Dose Route Start Last Admin Trade Name Freq PRN Reason Stop Dose Admin Aspirin 81 mg 01/21/19 09:00 01/21/19 08:46 Aspirin Chewable PO 81 mg DAILY RON Administration Cholecalciferol 1,000 units 01/21/19 09:00 01/21/19 08:45 Vitamin D3 PO 1,000 units DAILY RON Administration Clonidine 0.3 mg 01/20/19 21:00 01/21/19 20:21 Catapres PO 0.3 mg BID RON Administration Hydralazine HCl 75 mg 01/20/19 15:00 01/21/19 20:22 Apresoline PO 75 mg TID RON Administration Metoprolol Tartrate 25 mg 01/20/19 09:00 01/21/19 20:22 Lopressor PO 25 mg BID RON Administration Nifedipine 90 mg 01/21/19 09:00 01/21/19 08:46 Procardia Xl PO 90 mg DAILY RON Administration Nitroglycerin 0.4 mg 01/20/19 12:12 01/21/19 12:04 Nitrostat SL 1 tab Q5MIN PRN Administration Chest Pain Rosuvastatin Calcium 20 mg 01/20/19 21:00 01/21/19 20:22 Crestor PO 20 mg HS RON Administration - Exam Heart: negative: RRR, no murmur, no gallops, no rubs, normal peripheral pulses, irregular, diminshed peripheral pulses, murmur present, II/IV, III/IV Respiratory: negative: CTAB, no wheezes, no rales, no ronchi, normal chest expansion, no tachypnea, normal percussion, rales, rhonchi, tachypneic, wheezes Gastrointestinal: negative: soft, non-tender, non-distended, normal bowel sounds , no palpable masses, no hepatomegaly, no splenomegaly, no bruit, no guarding, no rigidity, tender to palpation, distended, diminished bowl sounds, voluntary guarding Hosp A/P (1) Hypertensive urgency Code(s): I16.0 - HYPERTENSIVE URGENCY Status: Acute (2) CKD (chronic kidney disease) stage 3, GFR 30-59 ml/min Code(s): N18.3 - CHRONIC KIDNEY DISEASE, STAGE 3 (MODERATE) Status: Chronic (3) Elevated troponin Code(s): R74.8 - ABNORMAL LEVELS OF OTHER SERUM ENZYMES Status: Chronic (4) Hypertension Code(s): I10 - ESSENTIAL (PRIMARY) HYPERTENSION Status: Chronic (5) Obesity (BMI 30-39.9) Code(s): E66.9 - OBESITY, UNSPECIFIED Status: Chronic - Plan pt's bp is stable, will check metanephrins and will get stress test.
[2019-01-22] MEDS: Aspirin Chewable 81 MG TAB PO SCH (07:57)
[2019-01-22] MEDS: hydrALAZINE 25 MG TAB PO SCH ×2 (07:57→14:32)
[2019-01-22] MEDS: cloNIDine 0.3 MG TAB PO SCH (07:57)
[2019-01-22] MEDS: NIFEdipine XL 90 MG TAB PO SCH (07:57)
[2019-01-22] MEDS ORDERED: ADENOSINE 60 MG/20 ML VIAL ONE (09:12)
[2019-01-22] MEDS: Metoprolol Tartrate 25 MG TAB PO SCH (12:03)
[2019-01-22 12:10] VITALS: TEMP 97.2
[2019-01-22] MEDS ORDERED: Ondansetron PF 4 MG/2 ML Vial SLOW IVP PRN (12:10)
[2019-01-22 13:00] LABS: Anion Gap 11 mmol/L (10-20); BUN (Urea Nitrogen) 21 mg/dL (8.9-20.6); Calc. Creatinine Clearance 76 mL/min (70-130); Calcium 9.1 mg/dL (7.8-10.44); Carbon Dioxide 27 mmol/L (22-29); Chloride 103 mmol/L (98-107); Estimated GFR-MDRD 48; Glucose 116 mg/dL (70-105); Potassium 3.9 mmol/L (3.5-5.1); Sodium 137 mmol/L (136-145)
--- NOTE | 2019-01-22 13:05 | NM ---
EXAM: Nuclear Medicine Cardiac SPECT with EF and wall motion: HISTORY: Chest pain Protocol: Exam was performed using adenosine protocol. The patient is injected with28.3 millicuries of technetium 99m sestamibi intravenously for stress zulay ges. The patient is injected with30.4 millicuries of technetium 99 sestamibi intravenously for resting zulay ges. Multiple SPECT images are performed in the short axis, vertical long axis, and horizontal long axis. FINDINGS: No scan evidence for infarct or ischemia. TID:1.16 LHR:0.53 EDV:185 mL EF: 52 % Wall motion:No significant focal wall motion abnormality. IMPRESSION: No scan evidence for infarct or ischemia. Elevated EDV.
[2019-01-22 14:33] VITALS: BP 135/83
--- NOTE | 2019-01-22 19:10 | DIS ---
DATE OF ADMISSION: 01/20/2019 DATE OF DISCHARGE: 01/22/2019 DISCHARGE DIAGNOSES: 1. Hypertensive urgency. 2. Elevated troponins. 3. Chest pain. 4. Obesity. 5. Possible sleep apnea. HOSPITAL COURSE: The patient is 48-year-old male, who initially presented to the hospital with complaints of some chest tightness and headache and was found to have elevated blood pressure of 250/120. The patient at this time was initially put on a Cardene drip in the ER and was given all his blood pressure medications. The patient states that he has been compliant with his blood pressure medications. However, at times, he has noticed that his blood pressure will be very elevated. The patient continued to have some shortness of breath with some elevated troponins at this time, a stress test was done which was negative. I did speak with the patient in details and he told me that he has been having significant amount of snoring at night to the point that his has to wake him up. He also states that he has been feeling very tired in the morning. I recommended this patient to have an outpatient sleep study, which could be most likely causing his uncontrolled hypertension. Also given his labile blood pressure, I have went ahead and checked a metanephrine plasma level and the patient has been asked to follow up with the results as an outpatient for this. I have also talked to the patient in details about salt intake. He has been using canned foods. I have told him to stay away from canned foods and pick more frozen vegetables, not frozen meals. The patient understands and is hoping to continue to improve. The patient currently is asymptomatic. He will be discharged home today. PHYSICAL EXAMINATION: GENERAL: Temp 97.9, pulse 60, respirations 17, 96% on room air, blood pressure 137/81. GENERAL: He is awake, alert, and oriented x3. Does not appear in distress. CV: S1 and S2 present. No murmurs, rubs, or gallops. ABDOMEN: Soft and nontender. Bowel sounds are present x2. MEDICATIONS: He is going to be on: 1. Coreg 12.5 b.i.d. 2. Aspirin 81 mg daily. 3. Procardia 90 mg daily. 4. Hydralazine t.i.d. 5. Clonidine 0.3 b.i.d. p.r.n. 6. Rosuvastatin 20 mg at bedtime. 7. Nitroglycerin as needed. Job ID: [id number]
== END 2019-01-22 15:32 | disposition home or self-care (01) | DRG 305 ==
LOC: ERS 23:45 → ERHOLD 01-20 01:08 → 2NO 01-20 15:21
PROVIDERS: ADMIT Internal Medicine; ATTEND Internal Medicine
DX: I16.0 Hypertensive urgency (principal); N18.4 Chronic kidney disease, stage 4 (severe); I13.0 Hypertensive heart and chronic kidney disease with heart failure and stage 1 through stage 4 chronic kidney disease, or unspecified chronic kidney disease; I50.9 Heart failure, unspecified; E78.5 Hyperlipidemia, unspecified; R74.8 Abnormal levels of other serum enzymes; E66.9 Obesity, unspecified; G47.30 Sleep apnea, unspecified; F32.9 Major depressive disorder, single episode, unspecified; F17.220 Nicotine dependence, chewing tobacco, uncomplicated; I25.10 Atherosclerotic heart disease of native coronary artery without angina pectoris; Z68.35 Body mass index [BMI] 35.0-35.9, adult; I25.2 Old myocardial infarction; Z95.810 Presence of automatic (implantable) cardiac defibrillator; Z95.5 Presence of coronary angioplasty implant and graft; Z88.0 Allergy status to penicillin; Z79.82 Long term (current) use of aspirin; Z79.899 Other long term (current) drug therapy
CPT/HCPCS: 36415; 78452; 80048; 82553; 83835; 84484; 93005; 93010; 93017; 93306; 96374; 96375; A9500; J0153; J0360; J1885; J2270; J2405

== ENCOUNTER 2019-03-10 14:46 | Inpatient (IN) | payer OTHER ==
[2019-03-10] MEDS ORDERED: hydrALAZINE 20 MG/ML VIAL ONE (15:35)
[2019-03-10] MEDS ORDERED: Enoxaparin Sodium 80 MG/0.8 ML SYRINGE ONE (15:35)
[2019-03-10] MEDS ORDERED: Enoxaparin Sodium 30 MG/0.3 ML SYRINGE ONE (15:35)
[2019-03-10 16:52] LABS: CKMB 1.1 ng/mL (0-6.6)
[2019-03-10] MEDS ORDERED: Acetaminophen 500 MG TAB ONE (18:19)
[2019-03-10] MEDS ORDERED: Acetaminophen 650 MG Suppository PR PRN (18:32)
[2019-03-10] MEDS ORDERED: Acetaminophen 325 MG TAB PO PRN (18:32)
[2019-03-10] MEDS ORDERED: Benzonatate 100 MG CAP PO PRN (18:36)
[2019-03-10 18:50] LABS: Bacteria/HPF None Seen HPF (None Seen); Bilirubin Negative (Negative); Blood, Urine Trace (Negative); Clarity Clear (Clear); Glucose, Urine (Dipstick) Normal (Negative); Leukocyte Negative Leu/uL (Negative); Nitrite Negative (Negative); Protein, Urine (Dipstick) 10 mg/dL (Neg-Trace); RBC/HPF 0-3 HPF (0-3); Squamous Epithelial 0-3 HPF (0-3); Urobilinogen Normal mg/dL (Less than 2); WBC/HPF None Seen HPF (0-3)
[2019-03-10 18:58] LABS: #Eosinphils 0.2 thou/uL (0.0-0.7); #Lymphocytes 0.7 thou/uL (1.20-3.40); #Monocytes 0.6 thou/uL (0.11-0.59); #Neutrophils 6.5 thou/uL (1.40-6.50); %Basophils 0.2 % (0.0-1.0); %Eosinophils 2.2 % (0.0-10.0); %Lymphocytes 8.4 % (21.0-51.0); %Neutrophils 82.2 % (42.0-75.0); Hemoglobin 13.3 g/dL (14.0-18.0); Mean Corpuscular HGB CONC 32.9 g/dL (32.0-36.0); Mean Corpuscular Hemoglobin 27.8 pg (27.0-31.0); Mean Corpuscular Volume 84.3 fL (78.0-98.0); Mean Platelet Volume 7.7 fL (7.4-10.4); Platelet Count 191 thou/uL (130-400); RBC Distribution Width 13.1 % (11.5-14.5); White Blood Cell (WBC) Count 7.9 thou/uL (4.8-10.8)
[2019-03-10 19:12] LABS: Anion Gap 12 mmol/L (10-20); BUN (Urea Nitrogen) 16 mg/dL (8.9-20.6); CRP (Inflammatory) 1.83 mg/dL (= or < 0.5); Calc. Creatinine Clearance 0 mL/min (70-130); Calcium 8.7 mg/dL (7.8-10.44); Carbon Dioxide 27 mmol/L (22-29); Chloride 104 mmol/L (98-107); Estimated GFR-MDRD 46; Glucose 88 mg/dL (70-105); Magnesium 1.8 mg/dL (1.6-2.6); Potassium 3.6 mmol/L (3.5-5.1); Sodium 139 mmol/L (136-145)
--- NOTE | 2019-03-10 20:22 | HP ---
TIME OF ASSESSMENT: 1700 hours. CHIEF COMPLAINT: Cough and chest pain. HISTORY OF PRESENT ILLNESS: Mr. Alfonso is a 48-year-old gentleman who presents complaining of "feeling terrible." The patient apparently has had a cough for the last 2 to 3 days productive for yellow sputum that has progressively worsened. Last night, his states that he began having frequent coughing fits through the night and unable to sleep. He started having associated midsternal chest discomfort radiating down the center of his chest and around the right lower side of his abdomen, which he states it is exacerbated by movement and tender to touch. He states it is made worse with the coughing fits. He has generalized body aches and generalized weakness. In the emergency department, he has been noted to have a fever and he states that he felt feverish this morning. His [id number] is currently here in the ED, being admitted for pneumonia and positive for influenza. The patient does live with his mxiyby-mg-jkg and therefore, has been exposed to the flu. He was initially seen at [facility] and due to past medical history of coronary artery disease, previous DE, and hypertension, the patient was referred for further workup of ACS given the complaints of chest pain. He is known to Dr. Nicolas, who is his order processing specialist. The patient apparently has had stents placed in the past and has an AICD in place as well. At [facility], he underwent an EKG that showed normal sinus rhythm with normal ST segments. He had T-wave inversion of V5 and V6. Apparently, the EKG was compared to previous EKG from January 2019 and he was deemed to have new T-wave inversion. He underwent a chest x-ray that was unremarkable. At [facility], he was given 324 mg of aspirin and also 1 inch of Nitro-Bid. He had laboratory studies including a troponin, which was elevated at 0.116. His troponin is chronically elevated and higher than this in the past. The elevated troponin was felt to be associated with his history of CKD. On arrival to the emergency department here, he was tested for flu and rapid testing was negative for flu A and flu B. A second EKG was done showing normal sinus rhythm with a heart of 63. No ST changes present. The patient was noted to be hypertensive with a blood pressure of 188/111, therefore given 10 mg of IV hydralazine and given 1 g of Tylenol for a temperature of 102.6. The patient's case was discussed with Dr. Spangler, who advised reviewing case with order processing specialist on-call before giving Lovenox. Per ED notes, the case was discussed with Cardiology and he has been given one dose of Lovenox. PAST MEDICAL HISTORY: 1. Hyperlipidemia. 2. Hypertension. 3. CAD. 4. NSTEMI in June 2013. 5. DE in 2011. 6. Stage 4 kidney disease. 7. Depression. PAST SURGICAL HISTORY: 1. Pacemaker/atrial fibrillation placed in 2011 and again in 2017. 2. Cardiac stent placed in March 2006 and 2011. 3. Normal cardiac cath in June 2013. SOCIAL HISTORY: The patient lives with his family. Fully independent at baseline. Denies any alcohol consumption or illicit drug use. He does not smoke cigarettes, but does chew tobacco daily. FAMILY HISTORY: The patient apparently had positive history for hypertension and strokes in his mother, father and had 2 brothers as well as 3 sisters who due to complications associated with hypertension and CVAs. ALLERGIES: PENICILLIN. CURRENT MEDICATIONS: 1. Aspirin. 2. Carvedilol. 3. Clonidine. 4. Nifedipine. 5. Hydralazine. 6. Nitroglycerin sublingual. PHYSICAL EXAMINATION: GENERAL: The patient appears generally unwell. He is slightly diaphoretic and warm to touch. SKIN: Normal. VITAL SIGNS: Temperature 102.6, pulse 82, blood pressure 170/115, respirations 22, and O2 saturation 95% on room air. HEENT: Normocephalic and atraumatic. Pupils are equal, round, and reactive to light. Sclerae icterus. Oropharynx is clear. NECK: Supple. No lymphadenopathy. LUNGS: Clear to auscultation bilaterally without wheezes, rales, or rhonchi. No tachypnea. Normal chest wall expansion. CARDIAC: Regular rate and rhythm. He does have reproducible chest wall tenderness throughout his entire chest, which he states is sore and worse with coughing. Pacemaker in place to the left side of his chest without swelling or redness. ABDOMEN: Soft, obese, nontender, and nondistended. Normoactive bowel sounds present. No guarding or rigidity. No renal angle tenderness. EXTREMITIES: No lower leg swelling or edema. Peripheral pulses equal and strong bilaterally. NEUROLOGIC: Alert and oriented x3. No neuro deficits on exam. SKIN: Warm to touch, slightly diaphoretic in his face, otherwise dry. INVESTIGATIONS AND LABORATORY DATA: White blood count 6.5, hemoglobin 12.2, hematocrit 39.4, platelets 209, neutrophils 83. Sodium 139, potassium 3.7, BUN 16, creatinine 2.04, GFR 42. Renal function is slightly worse from baseline. LFTs unremarkable. Troponin 0.116, second troponin 0.107. Other investigations as mentioned above in HPI. IMPRESSION AND PLAN: Mr. Alfonso is a pleasant 48-year-old gentleman with a known history of coronary artery disease, previous myocardial infarction, stents in the past, hypertension, and hyperlipidemia, who has been admitted for acute coronary syndrome rule out due to complaints of chest pain. This chest pain is associated with a cough. He has generalized body aches. He is febrile and lives with his [id number]-[id number]-pgs, who is currently in the emergency department with flu-like symptoms and tested positive for flu. Rapid flu testing in the ED was negative. However, symptoms are very much consistent with flu. Chest x-ray is unremarkable. He does have a cough productive for yellow sputum and his chest pain seems to be musculoskeletal in nature due to excessive coughing fits. He has been experiencing since last night. The patient given Lovenox in the ED due to elevated troponin; however, his troponin is chronically elevated in association with chronic kidney disease. We will hold Lovenox, but we will continue to trend troponins and he will remain on continuous cardiac monitoring given his history. The patient awaiting a dose of Tylenol for his current temperature of 100.2. We will obtain PCR testing for flu as per discussion with Dr. Pineda. We will go ahead and start Tamiflu. The patient has had a stress test done in January 2019, which was normal. EF at that time was 52%. We will provide IV fluids. We will obtain urinalysis. We will obtain baseline labs including CBC, BMP, lactic acid, magnesium, and CRP. The patient will be placed on droplet precautions. He is a full code status. Surrogate decision maker is his , Alma Alfonso. Of note, walking program consulted. DVT prophylaxis with mechanical SCDs until he resumes normal ambulation. The patient's case was discussed with Dr. Pineda, who agrees upon the care as described above. Job ID: [id number]
[2019-03-10] MEDS: Famotidine/PF 20 mg/2ml Vial SLOW IVP SCH (22:02)
[2019-03-10] MEDS: HYDROcodone/Acetaminophen 5/325 mg Tablet PO PRN (22:03)
[2019-03-10] MEDS: Oseltamivir 75 MG CAP PO SCH (22:03)
[2019-03-10] MEDS: Sodium Chloride 0.9% 1,000 ML IV SCH (22:04)
[2019-03-10 22:39] VITALS: BMI 35.7
[2019-03-11] MEDS: HYDROcodone/Acetaminophen 5/325 mg Tablet PO PRN ×2 (04:51→11:33)
[2019-03-11] MEDS ORDERED: NITROGLYCERIN 0.3 MG SL PRN (05:46)
[2019-03-11] MEDS ORDERED: hydrALAZINE 25 MG TAB PO SCH (06:15)
[2019-03-11] MEDS ORDERED: cloNIDine 0.2 MG TAB PO SCH (06:15)
[2019-03-11] MEDS ORDERED: Carvedilol 6.25 MG TAB PO SCH ×2 (06:15→09:00)
[2019-03-11] MEDS: hydrALAZINE 25 MG TAB PO SCH ×3 (08:55→21:53)
[2019-03-11] MEDS: cloNIDine 0.2 MG TAB PO SCH ×3 (08:55→21:51)
[2019-03-11] MEDS: NIFEdipine XL 90 MG TAB PO SCH (08:56)
[2019-03-11] MEDS: Aspirin Chewable 81 MG TAB PO SCH (08:56)
[2019-03-11] MEDS: Famotidine/PF 20 mg/2ml Vial SLOW IVP SCH ×2 (08:57→21:51)
[2019-03-11] MEDS: Oseltamivir 75 MG CAP PO SCH ×2 (08:57→21:54)
[2019-03-11] MEDS ORDERED: FLU VACC QS2019-20(6MOS UP)/PF 60 MCG/0.5 ML SYRINGE IM ONE (09:00)
[2019-03-11 10:11] LABS: Hemoglobin 12.3 g/dL (14.0-18.0); Mean Corpuscular HGB CONC 33.8 g/dL (32.0-36.0); Mean Corpuscular Hemoglobin 28.5 pg (27.0-31.0); Mean Corpuscular Volume 84.4 fL (78.0-98.0); Mean Platelet Volume 7.3 fL (7.4-10.4); Platelet Count 190 thou/uL (130-400); Red Blood Cell (RBC) Count 4.33 mill/uL (4.70-6.10); White Blood Cell (WBC) Count 5.1 thou/uL (4.8-10.8)
[2019-03-11 10:20] LABS: Anion Gap 11 mmol/L (10-20); BUN (Urea Nitrogen) 18 mg/dL (8.9-20.6); Calc. Creatinine Clearance 70 mL/min (70-130); Calcium 8.4 mg/dL (7.8-10.44); Carbon Dioxide 27 mmol/L (22-29); Chloride 105 mmol/L (98-107); Estimated GFR-MDRD 44; Glucose 91 mg/dL (70-105); Potassium 3.9 mmol/L (3.5-5.1); Sodium 139 mmol/L (136-145)
[2019-03-11 10:26] LABS: Band 12 % (5-11); Lymphocytes 19 % (21-51); MDiff Complete? YES; Monocytes 5 % (0-10); Neutrophil 64 % (42-75); Platelet Morphology Comment Appears Adequate; RBC Morphology Normal
[2019-03-11] MEDS: Nitroglycerin 0.4 MG TAB (25 Tab Bottle) SL PRN ×2 (11:33→11:38)
--- NOTE | 2019-03-11 14:03 | CON ---
DATE OF CONSULTATION: HISTORY OF PRESENT ILLNESS: The patient is a 48-year-old gentleman, who presents with fever, coughing, and chest discomfort. The patient has a long history of coronary artery disease. He previously underwent a cardiac catheterization in 2013. He was found to have normal left ventricular systolic function with normal coronary arteries. The patient had previously undergone PTCA and stent placements in [place]. He has also had placement of an AICD. The patient underwent a cardiac catheterization in June of 2013. He was found to have no significant coronary artery disease. The patient was admitted on several occasions with atypical chest discomfort. He has previously undergone cardiac stress test in March of 2016, which revealed no evidence of ischemia with an ejection fraction 62%. He had another as well in June of 2017, which again showed no evidence of ischemia and most recently in January of 2019 . The patient was in usual state of health when he started having fevers, chills, and coughing. The patient reported having substernal chest pain and noted to be markedly hypertensive. The patient states that his chest pain is worse whenever he coughs or takes a deep breath, but he has also noticed that when he did receive nitroglycerin and his chest pain resolved. PAST MEDICAL HISTORY: 1. Coronary artery disease. 2. Hypertension. 3. Dyslipidemia. 4. Depression. PAST SURGICAL HISTORY: None. SOCIAL HISTORY: Nonsmoker. FAMILY HISTORY: Strong family history of heart disease. ALLERGIES: PENICILLIN. MEDICATIONS: 1. Nifedipine 90 XL daily. 2. Aspirin 81 daily. 3. Coreg 12.5 b.i.d. 4. Hydralazine 75 daily. 5. Clonidine 0.3 t.i.d. REVIEW OF SYSTEMS: Ten-point system otherwise unremarkable except for low-grade fever. PHYSICAL EXAMINATION: GENERAL: Obese gentleman, in mild distress. VITAL SIGNS: Blood pressure is 174/109. NECK: No jugular venous distention. LUNGS: Clear to auscultation. HEART: Regular rate and rhythm. Normal S1 and S2. No murmurs. ABDOMEN: Nondistended. EXTREMITIES: Showed no edema. VASCULAR: Radial pulses are 2+. LABORATORY RESULTS: His sodium is 139, potassium 3.9, chloride 105, bicarbonate 27, BUN 18, and creatinine 1.95. Troponin 0.12. White blood cell count 5.1, hemoglobin 12.3, hematocrit 36.6, and platelets are 190. IMAGING DATA: EKG revealed normal sinus rhythm with T-wave abnormality suggestive of lateral ischemia. IMPRESSION: 1. Chest pain with some features suggestive of angina. 2. Malignant hypertension. 3. History of percutaneous transluminal coronary angioplasty and stent placement. 4. Chronic renal failure. 5. Dyslipidemia. 6. Obesity. PLAN: This gentleman presents with flu-like symptoms and chest discomfort. He is markedly hypertensive. He is on high doses of medication at this time. We would recommend adding Isordil to see if this will lower his blood pressure. We will also change Coreg to t.i.d. We would consider adding Flomax if his blood pressure remains elevated. The patient has chronic renal insufficiency. We would treat the patient medically. We will follow this patient with you through his hospitalization. Job ID: [id number] [facility] CENTERJacky
--- NOTE | 2019-03-11 14:11 | PDOC.HOSPP ---
- Subjective Encounter Date: 03/11/19 Encounter Time: 08:00 Subjective: Pt seen for followup re: influenza A infection. Feels weak. - Objective Vital Signs & Weight: Vital Signs (12 hours) Temp Pulse Resp BP BP Pulse Ox 03/11/19 11:27 98.9 F 62 18 157/85 H 93 L 03/11/19 08:49 99 F 65 18 151/93 H 93 L 03/11/19 06:27 85 174/109 H 03/11/19 06:26 174/109 H 03/11/19 04:15 99.8 F H 70 20 174/109 H 97 Weight Admit Weight 242 lb 1.6 oz Weight 242 lb 1.6 oz Result Diagrams: 03/11/19 09:40 03/11/19 09:40 Additional Labs: Labs and MARs reviewed by me EKG Reviewed by me: Yes (Tele:NSR) Hospitalist ROS - Review of Systems Constitutional: reports: fever, chills, weakness. denies: sweats, malaise Respiratory: reports: cough, sputum, wheezing. denies: dry, shortness of breath , hemoptysis, SOB with excertion, pleuritic pain Cardiovascular: reports: chest pain. denies: palpitations, orthopnea, paroxysmal noc. dyspnea, edema, light headedness Gastrointestinal: denies: nausea, vomiting, abdominal pain, diarrhea, constipation, melena, hematochezia Genitourinary: denies: dysuria, frequency, incontinence, hematuria, retention - Medication Medications: Active Medications Generic Name Dose Route Start Last Admin Trade Name Freq PRN Reason Stop Dose Admin Hydrocodone Bitart/Acetaminophen 1 tab 03/10/19 18:32 03/11/19 11:33 Yeaddiss 5/325 PO 1 tab Q4H PRN Administration Moderate Pain (4-6) Aspirin 81 mg 03/11/19 09:00 03/11/19 08:56 Aspirin Chewable PO 81 mg DAILY RON Administration Clonidine 0.3 mg 03/11/19 09:00 03/11/19 08:55 Catapres PO 0.3 mg TID RON Administration Famotidine 20 mg 03/10/19 21:00 03/11/19 08:57 Pepcid SLOW IVP 20 mg Q12HR RON Administration Hydralazine HCl 75 mg 03/11/19 09:00 03/11/19 08:55 Apresoline PO 75 mg TID RON Administration Sodium Chloride 1,000 mls @ 50 mls/hr 03/10/19 18:45 03/10/19 22:04 Normal Saline 0.9% IV 1,000 mls .Q20H RON Administration Nifedipine 90 mg 03/11/19 09:00 03/11/19 08:56 Procardia Xl PO 90 mg DAILY RON Administration Nitroglycerin 0.4 mg 03/11/19 06:09 03/11/19 11:38 Nitrostat SL 0.4 mg Q5MIN PRN Administration Chest Pain Oseltamivir Phosphate 75 mg 03/10/19 21:00 03/11/19 08:57 Tamiflu PO 03/15/19 09:01 75 mg BID RON Administration - Exam General - other findings: Obese Eye: anicteric sclera ENT: moist mucosa Neck: supple, symmetric, no JVD, no thyromegaly Heart: RRR, no gallops, no rubs, normal peripheral pulses Respiratory: wheezes Gastrointestinal: soft, non-tender, non-distended, normal bowel sounds Musculoskeletal: no muscle wasting Psychiatric: normal behavior, A&O x 3, flat affect Hosp A/P (1) Influenza A Code(s): J10.1 - FLU DUE TO OTH IDENT INFLUENZA VIRUS W OTH RESP MANIFEST Status: Acute (2) Chest pain Code(s): R07.9 - CHEST PAIN, UNSPECIFIED Status: Acute (3) Hypertensive urgency Code(s): I16.0 - HYPERTENSIVE URGENCY Status: Acute (4) CAD (coronary artery disease) Code(s): I25.10 - ATHSCL HEART DISEASE OF [place] CORONARY ARTERY W/O ANG PCTRS Status: Chronic (5) CKD (chronic kidney disease) stage 3, GFR 30-59 ml/min Code(s): N18.3 - CHRONIC KIDNEY DISEASE, STAGE 3 (MODERATE) Status: Chronic (6) Hypertension Code(s): I10 - ESSENTIAL (PRIMARY) HYPERTENSION Status: Chronic (7) Obesity (BMI 30-39.9) Code(s): E66.9 - OBESITY, UNSPECIFIED Status: Chronic - Plan out of bed/ambulate Continue Tamiflu for influenza A infection. Chest pain atypical for cardiac etiology, most likely MSK in nature. Continue antihypertensives, monitor vital signs and titrate antihypertensives as needed.
[2019-03-11] MEDS: Carvedilol 6.25 MG TAB PO SCH ×2 (14:27→21:54)
[2019-03-11] MEDS: Isosorbide Dinitrate 20 MG TAB PO SCH ×2 (14:28→21:54)
[2019-03-11] MEDS: Sodium Chloride 0.9% 1,000 ML IV SCH (21:50)
[2019-03-12 04:57] LABS: Anion Gap 12 mmol/L (10-20); BUN (Urea Nitrogen) 21 mg/dL (8.9-20.6); Calc. Creatinine Clearance 78 mL/min (70-130); Calcium 8.6 mg/dL (7.8-10.44); Carbon Dioxide 26 mmol/L (22-29); Chloride 103 mmol/L (98-107); Estimated GFR-MDRD 50; Glucose 135 mg/dL (70-105); Potassium 3.5 mmol/L (3.5-5.1); Sodium 137 mmol/L (136-145)
[2019-03-12 05:56] LABS: Band 13 % (5-11); Eosinophils 3 % (0-10); Hemoglobin 11.8 g/dL (14.0-18.0); Lymphocytes 23 % (21-51); MDiff Complete? YES; Mean Corpuscular HGB CONC 32.8 g/dL (32.0-36.0); Mean Corpuscular Hemoglobin 27.7 pg (27.0-31.0); Mean Corpuscular Volume 84.6 fL (78.0-98.0); Mean Platelet Volume 7.4 fL (7.4-10.4); Monocytes 15 % (0-10); Neutrophil 45 % (42-75); Platelet Count 198 thou/uL (130-400); Platelet Morphology Comment Appears Adequate; Reactive Lymphocytes 1 % (0-10); Red Blood Cell (RBC) Count 4.27 mill/uL (4.70-6.10); White Blood Cell (WBC) Count 4.7 thou/uL (4.8-10.8)
[2019-03-12] MEDS: hydrALAZINE 25 MG TAB PO SCH (09:33)
[2019-03-12] MEDS: Isosorbide Dinitrate 20 MG TAB PO SCH (09:34)
[2019-03-12] MEDS: cloNIDine 0.2 MG TAB PO SCH (09:38)
[2019-03-12] MEDS: Oseltamivir 75 MG CAP PO SCH (09:39)
[2019-03-12] MEDS: Aspirin Chewable 81 MG TAB PO SCH (09:40)
[2019-03-12] MEDS: NIFEdipine XL 90 MG TAB PO SCH (09:40)
[2019-03-12] MEDS: Carvedilol 6.25 MG TAB PO SCH (09:40)
[2019-03-12] MEDS: Famotidine/PF 20 mg/2ml Vial SLOW IVP SCH (09:41)
[2019-03-12 12:44] VITALS: BP 139/91; TEMP 98
--- NOTE | 2019-03-13 00:39 | DIS ---
DATE OF ADMISSION: 03/10/2019 DATE OF DISCHARGE: 03/12/2019 PRIMARY CARE PROVIDER: Brien Taylor MD DISCHARGE DIAGNOSES: 1. Influenza A infection. 2. Chest pain, most likely secondary to musculoskeletal etiology. 3. Chronic kidney disease, stage 3. 4. Hypertensive urgency. CONDITION OF PATIENT ON THE DAY OF DISCHARGE: Stable. I assessed Mr. Alfonso on the day of discharge. He denies any chest pain or shortness of breath. Vital signs are stable. S1 and S2 are heard, regular. Lungs are clear to auscultation bilaterally. CONSULTATIONS DURING THIS HOSPITALIZATION: Cardiology, Dr. Alvarado. POST-ACUTE CARE FOLLOWUP: With primary care provider in 3 days. DIET: Heart healthy and renal. ACTIVITY: No restrictions. HOSPITAL COURSE: Mr. Alfonso is a pleasant 48-year-old gentleman who was admitted to [facility] on March 10, 2019, for chest pain, cough, and fever. Please refer to Ms. Sanchez's history and physical note dated March 10, 2019 for further details. He was seen by Cardiology Service. His blood pressure medications were adjusted because of hypertensive urgency. His direct influenza screen was negative for presence of influenza A antigen and for B antigen. However, because of the clinical presentation, influenza A and B nucleic amplification test was ordered, and the patient was treated with Tamiflu. The test came back positive for influenza A. He is being discharged home to complete the course of Tamiflu. LABORATORY DATA: On the day of discharge, he has normal sodium, normal potassium, creatinine elevated at 1.76. White count 4700, hemoglobin 11.8, and platelet count 198,000. DISCHARGE MEDICATIONS: 1. Coreg has been increased to 12.5 mg 3 times a day. 2. Isosorbide dinitrate has been added at 20 mg 3 times a day. 3. Tamiflu 75 mg 2 times a day for 6 more doses. 4. Tessalon 100 mg 3 times a day as needed, were added. Otherwise, his home medications were continued and include: 1. Aspirin 81 mg daily. 2. Vitamin D3, 1000 units daily. 3. Clonidine 0.3 mg 3 times a day. 4. Hydralazine 75 mg 3 times a day. 5. Procardia XL 90 mg daily. 6. Nitrostat p.r.n. Many thanks for allowing me to participate in your patient's care. Please feel free to contact me with any questions or concerns. DIET: Heart healthy. ACTIVITY: As tolerated. DISCHARGE DESTINATION: Home. TIME SPENT: Total amount of time spent coordinating this discharge: 32 minutes. Job ID: [id number] MTDD
--- NOTE | 2019-03-15 10:24 | PQF ---
WILLEM PENALOZA DAVID [id number] CLINICAL DOCUMENTATION CLARIFICATION FORM: POST DISCHARGE Addendum to original discharge summary date: ____ Late entry note date: __ DATE: 03/15/2019 ATTN: ALEXANDRO MEDELLIN Please exercise your independent, professional judgment in responding to the clarification form. Clinical indicators are provided on the bottom of this form for your review Please check appropriate box(s): Conflicting documentation was noted in the Medical Record, please clarify if patient is being treated/monitored for: [ X ] Chronic kidney disease stage 3 [ ] Chronic kidney disease stage 4 [ ] Other diagnosis [ ] Unable to determine For continuity of documentation, please document condition throughout progress notes and discharge summary. Thank You. CLINICAL INDICATORS - SIGNS / SYMPTOMS/ LABS Stage IV kidney failure reviewed 03/10/19-Documented in ED on 03/10 by Walt Clancy BUN-16, Creatinine 2.04, GFR 42 renal function is slightly worse from baseline - Documented in H&P on 03/10 by Paulina Sanchez The patient has chronic renal insufficiency, We would treat the patient medically-Documented in consultation on 03/11 by Tello Alvarado MD Chronic kidney disease stage 3-Documented in discharge summary on 03/12/2019 by Henrik Wilder RISK FACTORS HTN-Documented in H&P on 03/10 by Paulina Sanchez TREATMENT Sodium chloride 1000 ml IV -Documented in medication snapshot [employer] Client Executive Crystal Reports Winform Viewer (This form is maintained as a part of the permanent medical record) 2014 [employer]. All Rights Reserved [email or web address]
== END 2019-03-12 13:28 | disposition home or self-care (01) | DRG 313 ==
LOC: ERS 14:46 → 2NO 17:20
PROVIDERS: ADMIT Internal Medicine; ATTEND Internal Medicine
DX: R07.89 Other chest pain (principal); J10.1 Influenza due to other identified influenza virus with other respiratory manifestations; I12.9 Hypertensive chronic kidney disease with stage 1 through stage 4 chronic kidney disease, or unspecified chronic kidney disease; N18.3 Chronic kidney disease, stage 3 (moderate); I16.0 Hypertensive urgency; E78.5 Hyperlipidemia, unspecified; I25.10 Atherosclerotic heart disease of native coronary artery without angina pectoris; F32.9 Major depressive disorder, single episode, unspecified; E66.9 Obesity, unspecified; Z95.5 Presence of coronary angioplasty implant and graft; Z95.810 Presence of automatic (implantable) cardiac defibrillator; Z88.0 Allergy status to penicillin; Z82.3 Family history of stroke; Z82.49 Family history of ischemic heart disease and other diseases of the circulatory system; I25.2 Old myocardial infarction; Z68.35 Body mass index [BMI] 35.0-35.9, adult
CPT/HCPCS: 36415; 36416; 80048; 81003; 81015; 82553; 83605; 83735; 85025; 86140; 87040; 87149; 87631; 87804; 93005; 96372; 96374; J0360; J1650; S0028

== ENCOUNTER 2019-05-09 00:29 | Inpatient (IN) | payer OTHER ==
[2019-05-09 01:22] VITALS: BMI 34.4
[2019-05-09] MEDS ORDERED: Nitroglycerin 0.4 MG TAB (25 Tab Bottle) SL PRN (01:32)
[2019-05-09 03:02] LABS: Troponin I 0.132 ng/mL (< 0.028)
--- NOTE | 2019-05-09 03:35 | HP ---
CHIEF COMPLAINT: Chest pain. HISTORY OF PRESENT ILLNESS: Mr. Alfonso is a 48-year-old male with past medical history significant for hypertension, chronic kidney disease stage 4, hyperlipidemia, coronary artery disease, myocardial infarction, cardiac stents, pacemaker/defibrillator, among others, presented to [place] ED with the chest pain that happened while mowing his lawn. The pain was described as pressure in nature. On workup in the emergency room, the patient had an EKG which showed nonspecific ST changes. Troponin was 0.11. But reviewing his records, his troponin has been at this range in February 2019. In spite of sublingual nitroglycerin, there was partial relief of the pain, but not completely gone. Denies nausea, vomiting. The patient is being admitted to the hospital for further management. PAST MEDICAL HISTORY: As mentioned above in history of present illness. PAST SURGICAL HISTORY: 1. Pacemaker/defibrillator. 2. Cardiac stent placement. SOCIAL HISTORY: The patient chews tobacco. Denies alcohol drinking. FAMILY HISTORY: Reviewed and noncontributory. HOME MEDICATIONS: Please see home medication reconciliation form for updated medications. ALLERGIES: ALLERGIC TO PENICILLIN. REVIEW OF SYSTEMS: Review of 14 systems negative except what is mentioned in history of present illness. PHYSICAL EXAMINATION: GENERAL: The patient is awake, alert, in mild distress. VITAL SIGNS: Blood pressure 130/90, respiratory rate 16, oxygen saturation 99% on room air, and temperature 97.5. HEAD AND NECK: Normocephalic, atraumatic. NECK: Supple. No JVD. CHEST: Fair bilateral air entry. HEART: S1, S2. Regular. ABDOMEN: Soft, nontender. Bowel sounds present. NEUROLOGIC: Awake, alert, oriented x3. No focal deficits. PSYCH: Normal mood. EXTREMITIES: No clubbing, no cyanosis. LABORATORY DATA: Sodium 140, potassium 3.7, BUN is 26, creatinine is 2.5, which is above his baseline, which is around 1.9. Troponin 0.11. WBC 7.9, hemoglobin 13.1, platelets 230. Chest x-ray, no acute findings. ASSESSMENT: 1. Acute coronary syndrome, ? The patient has a history of coronary artery disease, presenting with chest pain, not completely resolved. Troponin 0.11, but comparing to the old visits, this is not changed. 2. Hypertension. 3. Coronary artery disease. 4. Chronic kidney disease stage 4. 5. Hyperlipidemia. 6. Congestive heart failure, chronic. PLAN: 1. Admit. 2. Aspirin was given earlier in the ED. 3. The patient was given one dose of subcutaneous Lovenox, reassess in a.m. 4. Serial troponins. 5. Consult chargemaster specialist in a.m. for evaluation and further recommendations. 6. Reconcile home medications. 7. DVT prophylaxis as appropriate. 8. Keep the patient n.p.o. for now until patient evaluated in a.m. by chargemaster specialist. 9. Expected length of stay, 2 midnights or more. Job ID: [id number]
[2019-05-09 05:12] LABS: Troponin I 0.125 ng/mL (< 0.028)
[2019-05-09] MEDS ORDERED: Carvedilol 25 MG TAB PO SCH (08:00)
[2019-05-09] MEDS ORDERED: hydrALAZINE 25 MG TAB PO SCH (09:00)
[2019-05-09] MEDS ORDERED: NIFEdipine XL 90 MG TAB PO SCH (09:00)
[2019-05-09] MEDS ORDERED: cloNIDine 0.3 MG TAB PO SCH (09:00)
[2019-05-09] MEDS ORDERED: Metoprolol Tartrate 25 MG TAB PO SCH (09:00)
--- NOTE | 2019-05-09 09:37 | CON ---
DATE OF CONSULTATION: HISTORY OF PRESENT ILLNESS: The patient is a 48-year-old gentleman, who presented with recurrent chest discomfort. The patient has a long history of coronary artery disease. He has previously undergone PTCA and stent placement. He was seen initially here in June of 2013 with chest pain. He underwent emergent cardiac catheterization. He was found to have no significant coronary artery disease with a patent stent. The patient also had, had previously placement of an AICD. He has been admitted on several occasions with chest pain. He has undergone several stress tests, which revealed no evidence of ischemia. The patient has had poorly controlled hypertension. He was seen last month with recurrent chest pain. His medications were adjusted. The patient has not come for followup. He was in his usual state of health when he developed recurrent left-sided chest discomfort. He was noted to have markedly elevated systolic blood pressure over 250 mmHg. The patient came to the emergency room for further evaluation. The patient was placed on medical therapy. He states that he has been compliant with his medications and low- sodium diet. PAST MEDICAL HISTORY: 1. Coronary artery disease. 2. Malignant hypertension. 3. Chronic renal failure. PAST SURGICAL HISTORY: None. SOCIAL HISTORY: Nonsmoker. FAMILY HISTORY: Strong family history of cerebrovascular disease. ALLERGIES: PENICILLIN. MEDICATIONS: See nursing list. REVIEW OF SYSTEMS: Ten-point system otherwise unremarkable. PHYSICAL EXAMINATION: GENERAL: Obese gentleman, in no acute distress. VITAL SIGNS: Blood pressure 152/91. NECK: No jugular venous distention. LUNGS: Clear to auscultation. HEART: Regular rate and rhythm. Normal S1 and S2. ABDOMEN: Nondistended. EXTREMITIES: Showed no edema. VASCULAR: Radial pulses are 2+. LABORATORY RESULTS: White blood cell count is 7.9, hemoglobin 13.1, hematocrit 41.6, and platelets are 230. Sodium is 140, potassium 3.7, chloride 104, bicarbonate 23, BUN 26, and creatinine 2.5. Troponin is 0.0132. BNP is 19.8. IMAGING DATA: EKG revealed normal sinus rhythm with a T-wave abnormality suggestive of ischemia. IMPRESSION: 1. Chest pain. 2. Malignant hypertension. 3. Renal failure. 4. History of percutaneous transluminal coronary angioplasty and stent placement. 5. History of automatic implantable cardioverter-defibrillator placement. 6. Dyslipidemia. PLAN: This gentleman presented with malignant hypertension and chest pain. The patient states he has been compliant with medications. We will try to adjust them to have better control of his hypertension. We will follow this patient with you through his hospitalization. Job ID: [id number] HERMINIA
[2019-05-09] MEDS: Aspirin 325 mg Enteric Coated Tablet PO SCH (10:00)
[2019-05-09] MEDS: cloNIDine 0.3 MG TAB PO SCH ×3 (12:28→20:28)
[2019-05-09] MEDS: Isosorbide Dinitrate 20 MG TAB PO SCH ×3 (12:28→20:28)
[2019-05-09] MEDS: hydrALAZINE 25 MG TAB PO SCH ×3 (12:28→20:28)
--- NOTE | 2019-05-09 14:51 | PDOC.EVN ---
Event Note - Event Note Event Note: inherited the patient this morning. In addition to documented presentation, patient also endorsed not being able to move right arm for about 15 minutes during episode of chest pressure. Likely hypertensive emergency. Currently doing well
[2019-05-09] MEDS: Carvedilol 6.25 MG TAB PO SCH (16:39)
[2019-05-09 20:25] LABS: #Eosinphils 0.1 thou/uL (0.0-0.7); #Lymphocytes 1.8 thou/uL (1.20-3.40); #Monocytes 0.6 thou/uL (0.11-0.59); #Neutrophils 5.1 thou/uL (1.40-6.50); %Basophils 0.5 % (0.0-1.0); %Eosinophils 1.9 % (0.0-10.0); %Lymphocytes 23.5 % (21.0-51.0); %Monocytes 7.5 % (0.0-10.0); %Neutrophils 66.7 % (42.0-75.0); Mean Corpuscular HGB CONC 34.9 g/dL (32.0-36.0); Mean Corpuscular Hemoglobin 28.6 pg (27.0-31.0); Mean Corpuscular Volume 81.9 fL (78.0-98.0); Mean Platelet Volume 6.9 fL (7.4-10.4); Platelet Count 222 thou/uL (130-400); RBC Distribution Width 13.3 % (11.5-14.5); Red Blood Cell (RBC) Count 4.57 mill/uL (4.70-6.10); White Blood Cell (WBC) Count 7.7 thou/uL (4.8-10.8)
[2019-05-09] MEDS: Atorvastatin Calcium 40 MG TAB PO SCH (20:28)
[2019-05-09 20:47] LABS: Anion Gap 13 mmol/L (10-20); BUN (Urea Nitrogen) 29 mg/dL (8.9-20.6); Calc. Creatinine Clearance 59 mL/min (70-130); Calcium 8.7 mg/dL (7.8-10.44); Carbon Dioxide 26 mmol/L (22-29); Chloride 101 mmol/L (98-107); Estimated GFR-MDRD 38; Glucose 110 mg/dL (70-105); Potassium 3.4 mmol/L (3.5-5.1); Sodium 137 mmol/L (136-145)
[2019-05-09] MEDS: Sodium Chloride 0.45% 500 ML IV SCH (22:47)
[2019-05-10 04:25] LABS: #Eosinphils 0.2 thou/uL (0.0-0.7); #Lymphocytes 1.7 thou/uL (1.20-3.40); #Monocytes 0.7 thou/uL (0.11-0.59); #Neutrophils 5.8 thou/uL (1.40-6.50); %Basophils 0.3 % (0.0-1.0); %Eosinophils 2.2 % (0.0-10.0); %Lymphocytes 20.6 % (21.0-51.0); %Monocytes 7.8 % (0.0-10.0); %Neutrophils 69.1 % (42.0-75.0); Hemoglobin 11.9 g/dL (14.0-18.0); Mean Corpuscular Volume 82.2 fL (78.0-98.0); Mean Platelet Volume 7.3 fL (7.4-10.4); Platelet Count 211 thou/uL (130-400); RBC Distribution Width 13.3 % (11.5-14.5); Red Blood Cell (RBC) Count 4.26 mill/uL (4.70-6.10); White Blood Cell (WBC) Count 8.4 thou/uL (4.8-10.8)
[2019-05-10 04:52] LABS: Anion Gap 10 mmol/L (10-20); BUN (Urea Nitrogen) 28 mg/dL (8.9-20.6); Calc. Creatinine Clearance 63 mL/min (70-130); Calcium 8.7 mg/dL (7.8-10.44); Carbon Dioxide 26 mmol/L (22-29); Cardiac Risk 3.8 (Less than 4.5); Chloride 104 mmol/L (98-107); Cholesterol 135 mg/dl (< 200 Desired); Estimated GFR-MDRD 40; Glucose 108 mg/dL (70-105); HDL Cholesterol 36 mg/dL (>60 Neg Risk); LDL Cholesterol, Calculated 73 mg/dL; Sodium 136 mmol/L (136-145); Triglycerides 132 mg/dL (Less than 150)
[2019-05-10] MEDS: Sodium Chloride 0.45% 500 ML IV SCH ×2 (04:53→12:58)
[2019-05-10] MEDS ORDERED: NIFEdipine XL 90 MG TAB PO SCH (09:00)
[2019-05-10] MEDS: cloNIDine 0.3 MG TAB PO SCH ×3 (09:50→17:17)
[2019-05-10] MEDS: NIFEdipine XL 90 MG TAB PO SCH (09:51)
[2019-05-10] MEDS: Isosorbide Dinitrate 20 MG TAB PO SCH ×4 (09:51→20:03)
[2019-05-10] MEDS: Carvedilol 6.25 MG TAB PO SCH ×2 (09:51→17:17)
[2019-05-10] MEDS: hydrALAZINE 25 MG TAB PO SCH ×3 (09:51→17:16)
[2019-05-10] MEDS: Aspirin 325 mg Enteric Coated Tablet PO SCH (11:49)
--- NOTE | 2019-05-10 14:04 | PDOC.HOSPP ---
- Subjective Encounter Date: 05/10/19 Encounter Time: 08:30 Subjective: no overnight events. Has no complaints and denies additional episodes of chest pain or focal weakness. - Objective Vital Signs & Weight: Vital Signs (12 hours) Temp Pulse Pulse Pulse Resp BP BP 05/10/19 11:45 97.9 F 68 16 05/10/19 09:37 80 69 164/100 H 184/103 H 05/10/19 08:23 05/10/19 08:22 97.4 F L 67 16 BP Pulse Ox Pulse Ox 05/10/19 11:45 135/83 95 05/10/19 09:37 97 05/10/19 08:23 98 05/10/19 08:22 158/96 H 98 Weight Weight 234 lb 8 oz I&O: 05/09/19 05/10/19 05/11/19 06:59 06:59 06:59 Intake Total 1480 Output Total 700 Balance 780 Result Diagrams: 05/10/19 04:11 05/10/19 04:11 Hospitalist ROS - Review of Systems Constitutional: denies: fever, chills, sweats, weakness, malaise, other Respiratory: denies: cough, dry, shortness of breath, hemoptysis, SOB with excertion, pleuritic pain, sputum, wheezing, other Cardiovascular: denies: chest pain, palpitations, orthopnea, paroxysmal noc. dyspnea, edema, light headedness, other Gastrointestinal: denies: nausea, vomiting, abdominal pain, diarrhea, constipation, melena, hematochezia, other Genitourinary: denies: dysuria, frequency, incontinence, hematuria, retention, other - Medication Medications: Active Medications Generic Name Dose Route Start Last Admin Trade Name Freq PRN Reason Stop Dose Admin Aspirin 325 mg 05/09/19 09:00 05/10/19 11:49 Ecotrin PO 325 mg DAILY RON Administration Atorvastatin Calcium 40 mg 05/09/19 21:00 05/09/19 20:28 Lipitor PO 40 mg HS RON Administration Carvedilol 12.5 mg 05/09/19 17:00 05/10/19 09:51 Coreg PO 12.5 mg BID-WM RON Administration Clonidine 0.3 mg 05/09/19 13:00 05/10/19 13:00 Catapres PO 0.3 mg QID RON Administration Hydralazine HCl 50 mg 05/09/19 13:00 05/10/19 13:00 Apresoline PO 50 mg QID RON Administration Sodium Chloride 500 mls @ 65 mls/hr 05/09/19 20:15 05/10/19 12:58 1/2 Normal Saline IV Not Given .[id number] RON Isosorbide Dinitrate 20 mg 05/09/19 13:00 05/10/19 13:00 Isordil PO 20 mg QID RON Administration Nifedipine 90 mg 05/10/19 09:00 05/10/19 09:51 Procardia Xl PO 90 mg BID RON Administration - Exam General Appearance: NAD, awake alert Neck: no JVD Heart: RRR, no murmur, no gallops, no rubs Respiratory: CTAB, no wheezes, no rales, no ronchi Gastrointestinal: soft, non-tender, non-distended, normal bowel sounds Neurological: cranial nerve grossly intact, normal sensation to touch, no weakness, no focal deficits, no new deficit. negative: facial droop, hemiplegia , speech deficit Musculoskeletal: normal tone, normal strength, no muscle wasting. negative: generalized weakness Psychiatric: normal affect, normal behavior, A&O x 3 Hosp A/P - Plan Consults: Hospice #hypertensive emergency #TIA #JAMA on CKD3 -blood pressure currently better controlled as per cardiology recommendations -Cr. 2.1; baseline 1.8-2 -will continue to modify antiHTN as per cardiology recs for better blood pressure control -as for TIA, likely result of HTN-induced vasoconstriction; Will continue aspirin and request patient workup up as outpatient considering unlikely to change room attendant and indication for emergent-only studies and procedures at the moment.. -likely dc 4 remaining management unchanged
[2019-05-10] MEDS: Atorvastatin Calcium 40 MG TAB PO SCH (20:03)
[2019-05-11] MEDS: hydrALAZINE 25 MG TAB PO SCH ×2 (00:30→08:38)
[2019-05-11] MEDS: cloNIDine 0.3 MG TAB PO SCH ×3 (00:31→13:05)
[2019-05-11] MEDS: NIFEdipine XL 90 MG TAB PO SCH ×3 (00:31→09:47)
[2019-05-11 05:21] LABS: Anion Gap 10 mmol/L (10-20); BUN (Urea Nitrogen) 23 mg/dL (8.9-20.6); Calc. Creatinine Clearance 72 mL/min (70-130); Calcium 8.9 mg/dL (7.8-10.44); Carbon Dioxide 30 mmol/L (22-29); Chloride 102 mmol/L (98-107); Estimated GFR-MDRD 47; Glucose 133 mg/dL (70-105); Potassium 3.4 mmol/L (3.5-5.1); Sodium 139 mmol/L (136-145)
[2019-05-11] MEDS ORDERED: Potassium Chloride 20 MEQ TAB PO SCH (07:49)
[2019-05-11] MEDS: Carvedilol 6.25 MG TAB PO SCH (08:36)
[2019-05-11] MEDS: Isosorbide Dinitrate 20 MG TAB PO SCH (08:38)
[2019-05-11] MEDS ORDERED: Aspirin 81 mg Enteric Coated Tablet PO SCH (09:00)
[2019-05-11 11:52] VITALS: TEMP 98
[2019-05-11 12:56] VITALS: BP 128/76
[2019-05-11] MEDS ORDERED: hydrALAZINE 25 MG TAB PO SCH (15:00)
[2019-05-11] MEDS ORDERED: Isosorbide Dinitrate 20 MG TAB PO SCH (15:00)
[2019-05-12] MEDS ORDERED: NIFEdipine XL 90 MG TAB PO SCH (09:00)
--- NOTE | 2019-05-12 13:58 | DIS ---
DATE OF ADMISSION: 05/09/2019 DATE OF DISCHARGE: 05/11/2019 HOSPITAL COURSE: Mr. Alfonso is a 48-year-old male with a medical history of coronary artery disease, malignant hypertension, and chronic renal failure, who presented to the ED with chest pain. He was diagnosed with type 2 NSTEMI due to hypertensive emergency. Cardiology was consulted and adjusted his antihypertensive medications. He was discharged hemodynamically stable with blood pressure at goal and multiple new medications per Cardiology to better control his blood pressure. 1. Hypertensive emergency. a. The patient endorsed adherence to his previous antihypertensive medications. b. Cardiology was consulted regarding the NSTEMI and deemed it to be demand ischemia due to grossly elevated blood pressure. c. Per Cardiology, start the patient on multiple new medications. d. On the day of discharge, the patient's chest pain completely resolved, and he had no complaints. e. Will be followed by Cardiology as outpatient to further adjust medications. The patient endorsed having difficulties taking frequent medications due to his work schedule, so was advised to follow up with Cardiology as soon as possible to further adjust his medications. 2. Acute kidney injury over chronic kidney disease. a. Most likely etiology due to hypertensive emergency. b. The patient's renal function improved during inpatient stay, and his renal function returned to baseline. 3. TIA. a. In addition to his chest pain, the patient also presented with left-sided weakness, both his upper and lower extremities. b. Likely etiology of TIA again is hypertensive emergency. c. The patient was started on aspirin and will be followed by Cardiology regarding further management. Job ID: [id number]
== END 2019-05-11 13:06 | disposition home or self-care (01) | DRG 305 ==
LOC: 2NO 01:05
PROVIDERS: ADMIT Internal Medicine; ATTEND Internal Medicine
DX: I16.1 Hypertensive emergency (principal); G45.9 Transient cerebral ischemic attack, unspecified; N17.9 Acute kidney failure, unspecified; N18.4 Chronic kidney disease, stage 4 (severe); I25.10 Atherosclerotic heart disease of native coronary artery without angina pectoris; I13.0 Hypertensive heart and chronic kidney disease with heart failure and stage 1 through stage 4 chronic kidney disease, or unspecified chronic kidney disease; F17.220 Nicotine dependence, chewing tobacco, uncomplicated; E78.5 Hyperlipidemia, unspecified; I50.9 Heart failure, unspecified; Z88.0 Allergy status to penicillin; Z95.5 Presence of coronary angioplasty implant and graft; Z95.810 Presence of automatic (implantable) cardiac defibrillator; I25.2 Old myocardial infarction; Z79.899 Other long term (current) drug therapy; Z79.82 Long term (current) use of aspirin
CPT/HCPCS: 36415; 80048; 80061; 83735; 84484; 85025; 93798

== ENCOUNTER 2019-06-26 14:51 | Inpatient (IN) | payer SELFPAY ==
[2019-06-26] MEDS ORDERED: Morphine 4 MG/ML VIAL ONE (15:57)
[2019-06-26] MEDS ORDERED: Ondansetron PF 4 MG/2 ML Vial ONE (15:57)
[2019-06-26] MEDS ORDERED: hydrALAZINE 20 MG/ML VIAL ONE (15:58)
[2019-06-26] MEDS ORDERED: Nitroglycerin 0.4 MG TAB (25 Tab Bottle) SL PRN (16:23)
[2019-06-26] MEDS ORDERED: Nitroglycerin 0.4 MG TAB 1 EACH ONE (16:38)
[2019-06-26] MEDS ORDERED: Amlodipine 10 MG TAB PO SCH (16:45)
[2019-06-26] MEDS ORDERED: niCARdipine 20MG In NaCl 20 MG/200 ML BAG ONE (17:02)
[2019-06-26] MEDS ORDERED: niCARdipine 25 MG in Sodium Chloride 0.9% 250 ML 240 ML IVPB SCH (17:15)
[2019-06-26 19:36] LABS: Troponin I 0.115 ng/mL (< 0.028)
[2019-06-26 20:30] LABS: Medtox Reader # READER 4
[2019-06-26 20:31] LABS: Amphetamine Not Detected (NotDetected); Barbiturates Screen Not Detected (NotDetected); Benzodiazepine Screen Not Detected (NotDetected); Cocaine Metabolite Screen Detected (NotDetected); Medtox Control Line Valid? VALID (VALID); Methadone Not Detected (NotDetected); Methamphetamine Not Detected (NotDetected); Opiate Screen Detected (NotDetected); Oxycodone Screen Not Detected (NotDetected); Phencyclidine (PCP) Not Detected (NotDetected); THC/Cannabinoid Screen Detected (NotDetected); Tricyclic Screen Not Detected (NotDetected)
[2019-06-26] MEDS ORDERED: Ondansetron ODT 4 MG TAB SL PRN (20:50)
[2019-06-26] MEDS ORDERED: Ondansetron PF 4 MG/2 ML Vial IVP PRN (20:50)
[2019-06-26] MEDS ORDERED: Acetaminophen 325 MG TAB PO PRN (20:50)
[2019-06-26] MEDS ORDERED: Sodium Chloride 0.9% 1,000 ML IV SCH (20:50)
[2019-06-26] MEDS ORDERED: Morphine 4 MG/ML VIAL SLOW IVP PRN (20:51)
[2019-06-26 20:59] VITALS: BMI 35.9
[2019-06-26] MEDS: hydrALAZINE 25 MG TAB PO SCH (21:13)
[2019-06-26] MEDS: cloNIDine 0.3 MG TAB PO SCH ×2 (21:13→21:23)
[2019-06-26] MEDS: Isosorbide Dinitrate 20 MG TAB PO SCH (21:14)
[2019-06-26] MEDS: Atorvastatin Calcium 40 MG TAB PO SCH (21:14)
[2019-06-26] MEDS: Carvedilol 25 MG TAB PO SCH (21:21)
--- NOTE | 2019-06-27 02:12 | HP ---
CHIEF COMPLAINT: Chest pain, headache. HISTORY OF PRESENT ILLNESS: The patient is a very pleasant 48-year-old male with a past medical history of CAD, hypertension, who comes into the hospital complains of chest tightness x1 day. The patient states that he is on multiple blood pressure medications which he has religiously been very compliant with. He stated that his blood pressure normally runs around 150 systolic to 90s diastolic, and he takes it normally twice a day. However yesterday, he took his blood pressure last night. It was in the 170 systolic over 100 diastolic. He had some nausea and vomiting x1. The patient stated that throughout the night he had some headaches which woke him up. This morning when he took his blood pressure, his blood pressure was significantly high and he started feeling unwell. At this time, he came into the hospital for further evaluation. He also started having some chest pressure, which was relieved a little bit with nitroglycerin sublingual. He denies any fevers or chills, any abdominal pain, any diarrhea. PAST MEDICAL HISTORY: As of the following; he has a history of hypertension, chronic kidney disease stage IV, hyperlipidemia, coronary artery disease, PR, has cardiac stents, has a pacemaker defibrillator. PAST SURGICAL HISTORY: He has a pacemaker defibrillator and a cardiac stent. SOCIAL HISTORY: He chews tobacco. Denies any alcohol use, drug use, or smoking history. He is a full code. FAMILY HISTORY: According to the patient, they are all together 9 siblings and he is 8 out of 9 and all his siblings have with the blood pressure, strokes, and heart disease. His parents are both alive, but they both have high blood pressure and diabetes. HOME MEDICATIONS: As of the following; he is on hydralazine 100 mg t.i.d., nifedipine 90 mg daily, clonidine 0.3 mg b.i.d., isosorbide 20 mg one p.o. t.i.d., Coreg 12.5 mg b.i.d., aspirin 81 mg daily. He takes Flexeril as needed. REVIEW OF SYSTEMS: All negative except for the ones mentioned above in HPI. PHYSICAL EXAMINATION: VITAL SIGNS: As of the following; temperature of 97.8, 16 respirations, 75 heart rate, 96% on room air, 186/116. GENERAL: He is awake, alert, and oriented x3. Appears in mild distress. CV: S1, S2 present. No murmurs, rubs, or gallops. LUNGS: Clear to auscultation. No rhonchi or wheezes noted. ABDOMEN: Obese. Bowel sounds are present x2. EXTREMITIES: Mild lower extremity pitting edema. HEENT: He has a significant hemorrhage in his left eye compared to his right eye. NEUROLOGIC: No focal deficits noted. SKIN: No cuts, lesions, or bruises noted. LABORATORY RESULTS: As of the following; WBCs of 8.3, hemoglobin of 13.5, hematocrit of 41.5, platelets of 282. Chemistry; sodium of 141, potassium of 3.8, BUN of 17, creatinine of 1.73. His troponin 0.127 and then 0.105. He did have a CT head and a chest x-ray. CT head which did not show any acute intracranial findings. 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 He also had a chest x-ray done, which did not show any acute abnormalities, just indicated some questionable cardiomegaly and heart failure. ASSESSMENT AND PLAN: The patient is a very pleasant 48-year-old male, who presents to the hospital with chest pain, was found to have hypertensive urgency. 1. Hypertensive urgency. The patient's blood pressure is significantly elevated. It is unclear he is on a whole bunch of medications. According to the patient, he has been compliant with his salt intake and also with his medications. He has had a significant amount of family members who have because of issues with blood pressure. The patient did state that he has sleep apnea really bad and he had a sleep study about 6 months ago. However, he has not been connected to get a CPAP at home. I am going to put him on auto PAP and see if that helps. This can definitely contribute to his blood pressure. He will definitely need a workup as an outpatient. He may also need to go and see Nephrology given his significant family history of elevated high blood pressure, which is very random. The patient denies being stressed recently or any changes that could cause his pressures to go up. 2. Chest pain and elevated troponin. I believe the chest pain and elevated troponin are most likely secondary to demand from his blood pressure being so significantly elevated. He did actually have a stress test in 2019; which was in January and stress test indicated no significant focal wall motion abnormalities for infarct or ischemia. However, he did have an elevated EDV (end-diastolic volume) which was 185, and his TID score was 1.16. We will go ahead and trend his troponins, get his blood pressure under control, and continue to monitor. 3. Coronary artery disease. We will continue his home medications. 4. Sleep apnea. We will put him on an auto PAP. I have told Respiratory Therapy to do so. 5. Deep venous thrombosis prophylaxis. We will put the patient on subcu Lovenox. Job ID: [id number]
[2019-06-27] MEDS: Carvedilol 25 MG TAB PO SCH ×2 (08:55→18:19)
[2019-06-27] MEDS: NIFEdipine XL 90 MG TAB PO SCH (08:55)
[2019-06-27] MEDS: Aspirin 325 mg Enteric Coated Tablet PO SCH (08:55)
[2019-06-27] MEDS: cloNIDine 0.3 MG TAB PO SCH ×4 (08:55→21:05)
[2019-06-27] MEDS: Enoxaparin Sodium 40 MG/0.4 ML SYRINGE SC SCH (08:56)
[2019-06-27] MEDS: Isosorbide Dinitrate 20 MG TAB PO SCH ×3 (08:56→21:05)
[2019-06-27] MEDS: hydrALAZINE 25 MG TAB PO SCH ×3 (08:56→21:05)
[2019-06-27] MEDS ORDERED: Acetaminophen 325 MG TAB PO PRN (14:50)
[2019-06-27 18:19] VITALS: TEMP 97.9
[2019-06-27] MEDS: Atorvastatin Calcium 40 MG TAB PO SCH (21:05)
--- NOTE | 2019-06-28 03:09 | DIS ---
DATE OF ADMISSION: 06/26/2019 DATE OF DISCHARGE: 06/28/2019 DISCHARGE DIAGNOSES: 1. Atypical chest pain, most likely secondary to demand related from hypertensive urgency. 2. Hypertensive urgency. 3. Chronic kidney disease, stage 3. 4. Elevated troponins, most likely secondary to demand related. HOSPITAL COURSE: Patient is a 48-year-old male, who initially presented to the hospital with complaints of chest pain and elevated blood pressure. Please refer to my H and P for further details. Initially, he was put on a Cardene drip and was admitted to the ICU. His Cardene drip has been off since 1:00 a.m. Patient's blood pressure has been labile, however, controlled with his oral medications. He will be discharged today. He will be resuming his home medications. I have asked him to follow up with Nephrology as outpatient. this gentleman in the past , had done plasma metanephrines, which were normal. He apparently states that he has had a sleep study. I did speak with Respiratory to look into our system if he has had a sleep study done. They looked through and they could not find that. I have asked him to follow up with his Primary to get a CPAP and also if he has not done a sleep study to get a sleep study. Patient also was positive for cocaine. He stated that he did cocaine in a alliance party about 3 or 4 days prior to this current event. I have advised him against any of these drug use given his extensive history of hypertension in his family. Patient currently does not have any more chest tightness. His blood pressure has been holding. He will be discharged home and he will follow up with his primary care doctor. PHYSICAL EXAMINATION: VITAL SIGNS: 98.8, 139/92, 81, and 93% on room air. GENERAL: He is awake, alert, and oriented x3. Does not appear in distress. CV: S1, S2 present. No murmurs, rubs, or gallops. ABDOMEN: Soft and nontender. Bowel sounds are present x2. DISCHARGE MEDICATIONS: His home medications are as of the followin. Aspirin 81 mg daily. 2. Carvedilol 12.5 twice a day. 3. Isosorbide 20 t.i.d. 4. Hydralazine 100 mg t.i.d. 5. Clonidine 0.3 mg b.i.d. 6. Nifedipine was 90 mg daily. 7. Coreg 12.5 mg daily. Job ID: [id number] MTDD
[2019-06-28] MEDS: Aspirin 325 mg Enteric Coated Tablet PO SCH (08:32)
[2019-06-28] MEDS: Enoxaparin Sodium 40 MG/0.4 ML SYRINGE SC SCH (08:32)
[2019-06-28] MEDS ORDERED: Furosemide 40 MG/4 ML VIAL SLOW IVP SCH (09:00)
[2019-06-28] MEDS: Carvedilol 25 MG TAB PO SCH (09:42)
[2019-06-28] MEDS ORDERED: Polyethylene Glycol 3350 17 GM Packet PO SCH (10:00)
[2019-06-28 11:04] VITALS: BP 122/70
[2019-06-28] MEDS: cloNIDine 0.3 MG TAB PO SCH ×2 (11:06→11:10)
[2019-06-28] MEDS: hydrALAZINE 25 MG TAB PO SCH (11:07)
[2019-06-28] MEDS: Isosorbide Dinitrate 20 MG TAB PO SCH (11:07)
[2019-06-28] MEDS: NIFEdipine XL 90 MG TAB PO SCH (11:07)
--- NOTE | 2019-06-28 13:06 | PDOC.HOSPP ---
- Subjective Encounter Date: 06/28/19 Encounter Time: 10:30 Subjective: pt up in bed no complains - Objective Vital Signs & Weight: Vital Signs (12 hours) Temp Pulse Resp BP Pulse Ox 06/28/19 11:03 97.9 F 68 18 122/70 93 L 06/28/19 08:26 138/84 06/28/19 07:15 97.9 F 61 16 139/82 96 06/28/19 03:59 97.9 F 59 L 20 115/69 97 Weight Weight 249 lb 12.8 oz Most Recent Monitor Data Heart Rate from ECG 77 NIBP 122/78 NIBP BP-Mean 92 Respiration from ECG 13 SpO2 89 I&O: 06/27/19 06/28/19 06/29/19 06:59 06:59 06:59 Intake Total 1919 1200 Output Total 1150 1060 Balance 769 140 Hospitalist ROS - Review of Systems Cardiovascular: denies: chest pain, palpitations, orthopnea, paroxysmal noc. dyspnea, edema, light headedness, other Gastrointestinal: denies: nausea, vomiting, abdominal pain, diarrhea, constipation, melena, hematochezia, other Genitourinary: denies: dysuria, frequency, incontinence, hematuria, retention, other - Medication Medications: Active Medications Generic Name Dose Route Start Last Admin Trade Name Freq PRN Reason Stop Dose Admin Aspirin 325 mg 06/27/19 09:00 06/28/19 08:32 Ecotrin PO 325 mg DAILY RON Administration Atorvastatin Calcium 40 mg 06/26/19 21:00 06/27/19 21:05 Lipitor PO 40 mg HS RON Administration Carvedilol 12.5 mg 06/26/19 17:00 06/28/19 09:42 Coreg PO 12.5 mg BID-WM RON Administration Clonidine 0.3 mg 06/26/19 17:00 06/28/19 11:10 Catapres PO Not Given QID RON Enoxaparin Sodium 40 mg 06/27/19 09:00 06/28/19 08:32 Lovenox SC 40 mg 0900 RON Administration Hydralazine HCl 50 mg 06/26/19 21:00 06/28/19 11:07 Apresoline PO 50 mg TID RON Administration Isosorbide Dinitrate 20 mg 06/26/19 21:00 06/28/19 11:07 Isordil PO 20 mg TID RON Administration Nifedipine 90 mg 06/27/19 09:00 06/28/19 11:07 Procardia Xl PO Not Given DAILY [facility] Sodium Chloride 10 ml 06/26/19 21:00 06/28/19 10:50 Flush - Normal Saline IVF Not Given Q12HR RON - Exam Neck: negative: supple, symmetric, no JVD, no thyromegaly, no lymphadenopathy, no carotid bruit, JVD Heart: negative: RRR, no murmur, no gallops, no rubs, normal peripheral pulses, irregular, diminshed peripheral pulses, murmur present, II/IV, III/IV Respiratory: negative: CTAB, no wheezes, no rales, no ronchi, normal chest expansion, no tachypnea, normal percussion, rales, rhonchi, tachypneic, wheezes Gastrointestinal: negative: soft, non-tender, non-distended, normal bowel sounds , no palpable masses, no hepatomegaly, no splenomegaly, no bruit, no guarding, no rigidity, tender to palpation, distended, diminished bowl sounds, voluntary guarding Hosp A/P (1) Chest pain Code(s): R07.9 - CHEST PAIN, UNSPECIFIED Status: Acute (2) Hypertensive urgency Code(s): I16.0 - HYPERTENSIVE URGENCY Status: Acute (3) CAD (coronary artery disease) Code(s): I25.10 - ATHSCL HEART DISEASE OF [place] CORONARY ARTERY W/O ANG PCTRS Status: Chronic (4) Hypertension Code(s): I10 - ESSENTIAL (PRIMARY) HYPERTENSION Status: Chronic (5) Obesity (BMI 30-39.9) Code(s): E66.9 - OBESITY, UNSPECIFIED Status: Chronic - Plan pt's oxygen sat is stable. His blood pressure is stable. He will be discharged home today and follow up with primary care doc. i talked to him about autopap. he will look into it.
--- NOTE | 2019-06-29 15:34 | EKG ---
Test Reason : Blood Pressure : / mmHG Vent. Rate : 054 BPM Atrial Rate : 054 BPM P-R Int : 194 ms QRS Dur : 108 ms QT Int : 444 ms P-R-T Axes : 052 -18 005 degrees QTc Int : 421 ms Sinus bradycardia Possible Left atrial enlargement Left ventricular hypertrophy ST elevation, consider early repolarization, pericarditis, or injury Abnormal ECG Confirmed by MAXWELL BECKFORD ([id number]), editorial writer SVETA RAO ([id number]) on 06/29/2019 3:33:57 PM Referred By: Confirmed By:MAXWELL BECKFORD
--- NOTE | 2019-06-30 22:49 | PQF ---
Arron Alfonso Den ELOYISABEL HOBBS [id number] CLINICAL DOCUMENTATION CLARIFICATION FORM: POST DISCHARGE Addendum to original discharge summary date: ____ Late entry note date: __ DATE: 06/30/2019 ATTN: KALA ISABEL Please exercise your independent, professional judgment in responding to the clarification form. Clinical indicators are provided on the bottom of this form for your review Please check appropriate box(s) to clarify if the following diagnosis has been ruled in or ruled out: NSTEMI [ ] Ruled in diagnosis [ ] Continue to treat [ ] Resolved [ x ] Ruled out diagnosis [ ] Cannot rule out diagnosis [ ] Other diagnosis [ ] Unable to determine CLINICAL INDICATORS - SIGNS / SYMPTOMS / LABS - NSTEMI- ED record, 06/25, Leslier Loren KEYS - Atypical chest pain, most likely secondary to demand related from hypertensive urgency- DS, 06/27, ISABEL ARMENDARIZ - Elevated troponins, most likely secondary to demand related-DS, 06/27, KALA ISABEL - Chest pain and elevated blood pressure-DS, 06/27, MARISOLMOLLY ISABEL - Sinus Bradycardia, possible left atrial enlargement-ECG- 06/25 - Left ventricular hypertrophy-ECG- 06/25 - ST elevation, consider early repolarization, pericarditis or injury-ECG- 06/25 - Troponin: 0.105H, 0.115H on 06/25- Laboratory report RISKS: - Hypertensive urgency- DS, 06/27, ISABEL ARMENDARIZ - High Cholesterol- ED record, 06/25, Perla Loren KEYS TREATMENTS: - Aspirin.PO- MAR, 06/25 to 06/27 (This form is maintained as a part of the permanent medical record) 2014 [employer]. All Rights Reserved [email or web address]
== END 2019-06-28 14:21 | disposition home or self-care (01) | DRG 305 ==
LOC: ERS 14:51 → CCU 20:36 → 2NO 06-27 18:15
PROVIDERS: ADMIT Internal Medicine; ATTEND Internal Medicine
DX: I16.0 Hypertensive urgency (principal); N18.4 Chronic kidney disease, stage 4 (severe); I24.8 Other forms of acute ischemic heart disease; I25.10 Atherosclerotic heart disease of native coronary artery without angina pectoris; I12.9 Hypertensive chronic kidney disease with stage 1 through stage 4 chronic kidney disease, or unspecified chronic kidney disease; F32.9 Major depressive disorder, single episode, unspecified; F17.220 Nicotine dependence, chewing tobacco, uncomplicated; E66.9 Obesity, unspecified; E78.5 Hyperlipidemia, unspecified; E78.00 Pure hypercholesterolemia, unspecified; I25.2 Old myocardial infarction; Z95.5 Presence of coronary angioplasty implant and graft; Z95.0 Presence of cardiac pacemaker; Z88.1 Allergy status to other antibiotic agents; Z88.0 Allergy status to penicillin; Z88.2 Allergy status to sulfonamides; Z68.36 Body mass index [BMI] 36.0-36.9, adult
CPT/HCPCS: 36415; 80306; 93005; 94760; 96365; 96366; 96375; J0360; J1650; J1940; J2270; J2405

== ENCOUNTER 2020-01-13 19:56 | Observation (INO) | payer BC, SELFPAY ==
[~2020-01-13 19:56] MED LIST: Aspirin Chewable 81 MG TAB ONE; Heparin 10,000 UNITS/ 10 ML VIAL ONE; Metoprolol Tartrate 5 MG/5 ML VIAL ONE; Nitroglycerin 0.4 MG TAB (25 Tab Bottle) ONE
[2020-01-13] MEDS ORDERED: Nitroglycerin 2% Ointment 1 INCH/1 GM Packet ONE (20:23)
[2020-01-13] MEDS ORDERED: Heparin 10,000 UNITS/ 10 ML VIAL ONE (20:36)
[2020-01-13 20:46] LABS: INR-International Normal Ratio 0.8; PTT 24.8 sec (22.9-36.1); Prothrombin Time 11.7 sec (12.0-14.7)
--- NOTE | 2020-01-13 20:46 | RAD ---
Exam: Chest one view HISTORY:Chest pain Comparison: 06/26/2019 FINDINGS: Cardiac silhouette:Stable cardiomegaly. Stable single lead left-sided transvenous defibrillator. Aorta: Unremarkable Pulmonary vessels: Normal Costophrenic angles: Clear LUNGS: No masses or consolidation. Pneumothorax: None Osseous abnormalities: None IMPRESSION: No acute cardiopulmonary process.
[2020-01-13] MEDS ORDERED: Midazolam HCl 2 mg/2 ml Vial ONE (21:10)
[2020-01-13] MEDS ORDERED: Fentanyl 100 MCG/2 ML VIAL ONE (21:10)
[2020-01-13] MEDS ORDERED: Protamine Sulfate 50 MG/5 ML VIAL ONE (21:20)
[2020-01-13 21:24] LABS: CKMB 2.6 ng/mL (0-6.6)
[2020-01-13] MEDS ORDERED: Sodium Chloride 0.9% 200 ML IV PRN (21:27)
[2020-01-13] MEDS ORDERED: Acetaminophen/Codeine 30-300mg Tablet PO PRN ×2 (21:27)
[2020-01-13] MEDS ORDERED: Nitroglycerin 0.4 MG TAB (25 Tab Bottle) SL PRN (21:27)
[2020-01-13] MEDS ORDERED: Sodium Chloride 0.9% 1,000 ML IV SCH (21:30)
[2020-01-14 00:06] VITALS: BMI 35.7
[2020-01-14] MEDS: hydrALAZINE 20 MG/ML VIAL SLOW IVP PRN ×2 (01:43→07:56)
[2020-01-14 02:30] LABS: Amphetamine Not Detected (NotDetected); Barbiturates Screen Not Detected (NotDetected); Benzodiazepine Screen Not Detected (NotDetected); Cocaine Metabolite Screen Not Detected (NotDetected); Medtox Control Line Valid? VALID (VALID); Medtox Reader # READER 4; Methadone Not Detected (NotDetected); Methamphetamine Not Detected (NotDetected); Opiate Screen Not Detected (NotDetected); Oxycodone Screen Not Detected (NotDetected); Phencyclidine (PCP) Not Detected (NotDetected); THC/Cannabinoid Screen Not Detected (NotDetected); Tricyclic Screen Not Detected (NotDetected)
--- NOTE | 2020-01-14 03:06 | CON ---
DATE OF CONSULTATION: HISTORY: Arron Alfonso is a 49-year-old black male, who presents with chest discomfort. He has been seen by Dr. Alvarado in the past. Mr. Alfonso gives a history of having a stent put in here in [address] Nicolas. The last catheterization I can see was in 2013, and he had normal coronary arteries. He has a nonischemic cardiomyopathy and has had placement of a single-chamber ICD. He has had multiple normal stress tests. His current discomfort started at approximately 1 p.m., went to the [place] [facility], and then was transferred here for further evaluation. PAST MEDICAL HISTORY: Malignant hypertension, chronic kidney disease, hypercholesterolemia. MEDICATIONS: 1. Aspirin 81 daily. 2. Atorvastatin 40 q.h.s. 3. Carvedilol 12.5 b.i.d. 4. Clonidine 0.3 mg q.i.d. 5. Apresoline 50 t.i.d. 6. Isosorbide dinitrate 20 t.i.d. 7. Nifedipine 90 daily. 8. Nitroglycerin p.r.n. ALLERGIES: PENICILLIN, AMOXICILLIN, AND SULFA. OPERATIONS: None. SOCIAL HISTORY: He does not smoke. FAMILY HISTORY: He states that many siblings and his mother have had heart attacks. REVIEW OF SYSTEMS: A 10-point review of systems otherwise unremarkable. PHYSICAL EXAMINATION: VITAL SIGNS: Blood pressure 140/100, pulse of 100. HEENT: PERRL. NECK: Supple. CHEST: Clear. CARDIAC: S1 and S2 are normal without any S3, S4, or murmurs. ABDOMEN: Normal bowel sounds. EXTREMITIES: No clubbing, cyanosis, or edema. NEUROLOGIC: Grossly intact. SKIN: Warm and dry. LABORATORY DATA: EKG reveals 0.[address] elevation in aVL, 1 mm in lead I. There is approximately [address]-segment elevation in V2 and V3; however, in comparing the EKG from June, this is an old finding. Hemoglobin 13.7, hematocrit 43.3, white count 13,100. Sodium 138, potassium 4.4, chloride 105, carbon dioxide 22, creatinine 1.60. Troponin I 0.120, the patient always has elevated troponins. IMPRESSION: 1. Ongoing chest pain with very minimal EKG changes. His troponin is always elevated and he had normal cardiac catheterization in 2013. No stents were placed at that time. He has had multiple admissions since for chest discomfort. 2. Hypertension. 3. Hypercholesterolemia. 4. Positive family history. 5. History of cocaine abuse on his last admission. PLAN: With ongoing chest pain and last catheterization 6 years ago, I feel that we should go to the cardiac custodial laborer, although this is definitely not a STEMI and probably he will be found to have normal coronary arteries again. Urine drug screen will be performed. Risks of catheterization were discussed including , myocardial infarction, dye reaction, vascular injury, CVA, transfusion, limb loss, renal loss, etc. Risks of stent placement were discussed including CABG, restenosis, etc. Job ID: [id number]
[2020-01-14 06:42] LABS: SARS-CoV-2 MS2 Positive; SARS-CoV-2 N Gene Negative; SARS-CoV-2 S Gene Negative; SARS-CoV-2 by NAA Not Detected (NotDetected); SARS-CoV-2 orf1ab Negative
[2020-01-14] MEDS ORDERED: cloNIDine 0.3 MG TAB PO SCH (09:00)
[2020-01-14] MEDS ORDERED: FLU VACC QS2020-21(6MOS UP)/PF 60 MCG/0.5 ML SYRINGE IM ONE (09:00)
[2020-01-14 09:09] LABS: #Lymphocytes 2.1 thou/uL (1.20-3.40); #Monocytes 0.8 thou/uL (0.11-0.59); #Neutrophils 7.5 thou/uL (1.40-6.50); %Basophils 0.2 % (0.0-1.0); %Eosinophils 0.4 % (0.0-10.0); %Lymphocytes 20.2 % (21.0-51.0); %Monocytes 7.7 % (0.0-10.0); %Neutrophils 71.5 % (42.0-75.0); Hemoglobin 13.3 g/dL (14.0-18.0); Mean Corpuscular HGB CONC 32.6 g/dL (32.0-36.0); Mean Corpuscular Volume 82.7 fL (78.0-98.0); Platelet Count 291 thou/uL (130-400); RBC Distribution Width 13.4 % (11.5-14.5); Red Blood Cell (RBC) Count 4.93 mill/uL (4.70-6.10); White Blood Cell (WBC) Count 10.5 thou/uL (4.8-10.8)
[2020-01-14] MEDS: hydrALAZINE 25 MG TAB PO SCH ×2 (09:15→20:12)
[2020-01-14] MEDS: Carvedilol 6.25 MG TAB PO SCH ×2 (09:15→16:04)
[2020-01-14] MEDS: NIFEdipine XL 60 MG TAB PO SCH ×2 (09:16→20:12)
[2020-01-14 09:33] LABS: Anion Gap 13 mmol/L (10-20); BUN (Urea Nitrogen) 21 mg/dL (8.4-25.7); Calc. Creatinine Clearance 85 mL/min (70-130); Carbon Dioxide 25 mmol/L (22-29); Chloride 104 mmol/L (98-107); Glucose 94 mg/dL (70-105); Potassium 3.3 mmol/L (3.5-5.1); Sodium 139 mmol/L (136-145)
[2020-01-14] MEDS ORDERED: Potassium Chloride 20 MEQ TAB PO SCH (09:45)
--- NOTE | 2020-01-14 12:20 | PDOC.HHP ---
Hospitalist HPI - History of Present Illness History of Present Illness: ADMISSION DATE: 01/14/2020 TIME OF ASSESSMENT: 10 19 PRIMARY CARE PHYSICIAN: Thania Ivan CHIEF COMPLAINT: Chest pain HPI: Patient is a 49-year-old male with past medical history significant for SC, CAD, hypertension. He was transferred from [facility] yesterday for chest pain. He was on his way to work when the pain began. It was left-sided and radiated to his shoulder. He described it as a pressure feeling and stated it felt like his prior heart attack. He also states that when his blood pressure is elevated he feels this way. He did describe dyspnea with the pain. Denies nausea, diaphoresis, edema. ED COURSE: Vital Signs: Blood pressure 144/97, pulse 68, respiratory rate 19, 93% on 2 L, 97.8 oral Patient was called in as a STEMI alert. Prior to [employer] [facility] he was given metoprolol tartrate 5 mg IV push, nitro sublingual, heparin IV, nitro transdermal and aspirin 324 mg. PAST MEDICAL HISTORY: Hyperlipidemia, hypertension, CAD, NSTEMI, stage IV kidney failure, arrhythmia, depression PAST SURGICAL HISTORY: Pacemaker/defibrillator, cardiac stent placement SOCIAL HISTORY: Patient lives at home. He chews tobacco. Denies any alcohol, drug use or smoking. FAMILY HISTORY: Hypertension, strokes, heart disease, diabetes ALLERGIES: Amoxicillin, penicillin CURRENT MEDICATIONS: Aspirin 325 mg Carvedilol 12.5 mg 2 times a day Clonidine 0.3 milligrams 2 times a day Nifedipine 60 mg once a day Hydralazine 100 mg 3 times a day Nitro as needed sublingual Hospitalist ROS - Review of Systems Respiratory: reports: shortness of breath Cardiovascular: reports: chest pain All other systems reviewed; all pertinent +/- noted in HPI/Subj - Medication Medications: Active Medications Generic Name Dose Route Start Last Admin Trade Name Freq PRN Reason Stop Dose Admin Carvedilol 12.5 mg 01/14/20 08:00 01/14/20 09:15 Carvedilol 6.25 Mg Tab PO 12.5 mg BID-WM RON Administration Hydralazine HCl 10 mg 01/14/20 00:18 01/14/20 07:56 Hydralazine 20 Mg/Ml Vial SLOW IVP 10 mg Q4H PRN Administration SBP Greater Than 180 Hydralazine HCl 100 mg 01/14/20 09:00 12/05/20 09:15 Hydralazine 25 Mg Tab PO 100 mg BID RON Administration Isosorbide Mononitrate 60 mg 01/14/20 09:00 01/14/20 09:16 Isosorbide Mononitrate Er 60 Mg Tab PO 60 mg DAILY RON Administration Nifedipine 60 mg 01/14/20 09:00 12 09:16 Nifedipine Xl 60 Mg Tab PO 60 mg BID RON Administration Sodium Chloride 10 ml 01/14/20 09:00 01/14/20 09:17 Flush - Normal Saline 10 Ml Syringe IVF 10 ml Q12HR RON Administration - Exam General Appearance: NAD, awake alert ENT: normocephalic atraumatic Heart: RRR, no murmur, no gallops, no rubs, normal peripheral pulses Respiratory: CTAB, no wheezes, no rales, no ronchi, normal chest expansion Gastrointestinal: soft, non-tender, non-distended, normal bowel sounds Extremities: no cyanosis, no edema Psychiatric: normal affect, normal behavior, A&O x 3 Hospitalist Results - Labs Result Diagrams: 01/14/20 09:00 01/14/20 09:00 Lab results: WBC 10.5 thou/uL (4.8-10.8) 01/14/20 09:00 Hgb 13.3 g/dL (14.0-18.0) L 01/14/20 09:00 Hct 40.8 % (42.0-52.0) L 01/14/20 09:00 MCV 82.7 fL (78.0-98.0) 01/14/20 09:00 Plt Count 291 thou/uL (130-400) 01/14/20 09:00 Neutrophils % 71.5 % (42.0-75.0) 01/14/20 09:00 Sodium 139 mmol/L (136-145) 01/14/20 09:00 Potassium 3.3 mmol/L (3.5-5.1) L 01/14/20 09:00 Chloride 104 mmol/L (98-107) 01/14/20 09:00 Carbon Dioxide 25 mmol/L (22-29) 01/14/20 09:00 BUN 21 mg/dL (8.4-25.7) 01/14/20 09:00 Creatinine 1.59 mg/dL (0.7-1.3) H 01/14/20 09:00 Glucose 94 mg/dL (70-105) 01/14/20 09:00 Calcium 9.0 mg/dL (7.8-10.44) 01/14/20 09:00 CK-MB (CK-2) 2.6 ng/mL (0-6.6) 01/13/20 20:29 Troponin I 0.110 ng/mL (< 0.028) H 01/13/20 20:29 - EKG Interpretation EKG: Sinus rhythm with ST elevation in aVL, lead I, V2 and V3 Hospitalist H&P A/P - Plan Plan: Chest pain with elevated troponins Cardiac cath was performed this morning, no interventions Continue to monitor on telemetry Troponins elevated but at baseline Patient still complaining of chest pain this morning, however he says is because his blood pressure is highwe will monitor how he feels once blood pressure decreases Hypertension Home medications have been restarted by cardiology As needed antihypertensives available Monitor vital signs every 4 hours Chronic kidney disease Continue monitor renal function Hypokalemia Replace and continue to monitor CODE STATUS: Full Patient has been discussed with Dr. Yanez
[2020-01-15 04:44] LABS: #Lymphocytes 1.6 thou/uL (1.20-3.40); #Neutrophils 9.6 thou/uL (1.40-6.50); %Basophils 0.2 % (0.0-1.0); %Eosinophils 0.2 % (0.0-10.0); %Lymphocytes 13.3 % (21.0-51.0); %Monocytes 8.3 % (0.0-10.0); Hemoglobin 12.8 g/dL (14.0-18.0); Mean Corpuscular HGB CONC 32.9 g/dL (32.0-36.0); Mean Corpuscular Hemoglobin 27.4 pg (27.0-31.0); Mean Corpuscular Volume 83.4 fL (78.0-98.0); Mean Platelet Volume 8.2 fL (7.4-10.4); Platelet Count 284 thou/uL (130-400); RBC Distribution Width 13.3 % (11.5-14.5); Red Blood Cell (RBC) Count 4.66 mill/uL (4.70-6.10); White Blood Cell (WBC) Count 12.3 thou/uL (4.8-10.8)
[2020-01-15 05:00] LABS: Anion Gap 15 mmol/L (10-20); BUN (Urea Nitrogen) 21 mg/dL (8.4-25.7); Calc. Creatinine Clearance 89 mL/min (70-130); Calcium 8.9 mg/dL (7.8-10.44); Carbon Dioxide 24 mmol/L (22-29); Chloride 103 mmol/L (98-107); Glucose 105 mg/dL (70-105); Sodium 138 mmol/L (136-145)
[2020-01-15] MEDS ORDERED: Tamsulosin HCl 0.4 MG CAP PO SCH (09:00)
[2020-01-15] MEDS: hydrALAZINE 25 MG TAB PO SCH (09:15)
[2020-01-15] MEDS: Carvedilol 6.25 MG TAB PO SCH ×2 (09:15→17:08)
[2020-01-15] MEDS: NIFEdipine XL 60 MG TAB PO SCH (09:15)
[2020-01-15 13:02] VITALS: TEMP 97.8
--- NOTE | 2020-01-15 15:20 | PDOC.DS.DS ---
Provider - Provider Date of Admission: 01/13/20 22:14 Date of Discharge: 01/15/20 Admitting Provider: Josias Yanez DO Consultations: Cardiology Primary Care Physician: Thania Ivan Course - Hospital Course Hospital Course: DISCHARGE DIAGNOSES: 1. Chest pain with elevated troponin-negative cardiac catheterization 2. Uncontrolled hypertension 3. Dyslipidemia 4. Hx of Substance abuse 5. CKD 6. Hypokalemia resolved PERTINENT IMAGING STUDIES: Negative cardiac catheterization HISTORY OF PRESENT ILLNESS AND BRIEF HOSPITAL COURSE: The patient is a pleasant 49 years old -[place] gentleman who has significant past medical histories of hypertension, dyslipidemia, history of substance abuse, CKD, who presented to ED with complaint of chest pain. His troponins was noted elevated at 0.1, with minimal EKG changes. For that reason cardiology was consulted. Patient was seen by route delivery manager in the ED and subsequently recommended heart cath which was negative for coronary artery disease. His elevated troponin likely due to uncontrolled hypertension, his blood pressure upon arrival was 182/110. His diastolic has been elevated. His blood pressures has been adjusted by cardiology. At the time of discharge his blood pressure has came down to 144/96. He completely asymptomatic and request to be discharged home. Patient was advised to take his medication as prescribed, follow-up with his PCP in 1 to 2 weeks for blood pressure check and adjust accordingly. PROCEDURE PERFORMED: Left heart cath, negative for coronary artery disease DISCHARGE CONDITION: STABLE DISPOSITION: HOME PHYSICAL EXAM: General Appearance: Alert, oriented, resting comfortably, no apparent distress, well developed/nourished. HEENT: Normocephalic/atraumatic, moist mucous membrane, normal ENT inspection, normal tones. PERRLA, no scleral icterus, normal conjunctiva Neck: Supple, normal inspection, no JVD Respiratory: Lungs are clear bilaterally, normal breath sounds, no accessory muscle use Cardiovascular: Regular rate, regular rhythm, no murmur, no rubs Abdomen: Soft, nontender, nondistended, normal bowel sounds, no organomegaly, no guarding no rebound Back: Normal inspection, no CVA tenderness Extremities: No clubbing, no cyanosis, no edema Psych/Mental Status: Normal affect, speech, non-pressured, AAO x 3 Neurologic: CN II-XII are intact. Skin: Warm/Dry, Normal Color, no rashes DISCHARGE TIME SPENT: >30 MINUTES - Labs Lab Results: 01/15/20 04:17 01/15/20 04:17 Abnormal Lab Results - Last 48 hrs 01/13/20 20:29: PT 11.7 L 01/13/20 20:29: Troponin I 0.110 H 01/14/20 09:00: Potassium 3.3 L, Creatinine 1.59 H 01/14/20 09:00: Hgb 13.3 L, Hct 40.8 L, MPV 7.0 L, Lymphocytes % 20.2 L, Neutrophils # 7.5 H, Monocytes # 0.8 H 01/15/20 04:17: Creatinine 1.54 H 01/15/20 04:17: WBC 12.3 H, RBC 4.66 L, Hgb 12.8 L, Hct 38.9 L, Neutrophils % 78.0 H, Lymphocytes % 13.3 L, Neutrophils # 9.6 H, Monocytes # 1.0 H - Physical Exam Vitals: Vital Signs (12 hours) Temp Pulse Resp BP BP Pulse Ox 01/15/20 14:25 83 144/96 H 01/15/20 12:00 97.8 F 77 16 158/104 H 01/15/20 09:15 71 182/110 H 01/15/20 08:00 97.7 F 71 20 182/110 H 97 01/15/20 07:49 94 L 01/15/20 04:56 94 L 01/15/20 03:58 98.9 F 79 20 168/91 H 93 L Weight Weight 243 lb 4.8 oz Physical Exam: The patient was seen and examined on the day of discharge. Plan - Discharge Medications Prescriptions: Carvedilol [Coreg] 12.5 mg PO BID #60 tab Tamsulosin HCl [Flomax] 0.4 mg PO BID #60 cap hydrALAZINE HCl [Hydralazine HCl] 100 mg PO BID #60 tablet Isosorbide Mononitrate [Imdur] 60 mg PO DAILY #60 tab NIFEdipine [Procardia XL] 60 mg PO BID #60 tab Home Medications: Medication Instructions Recorded Confirmed Type Aspirin Chewable [Aspirin Chewable 81 mg PO DAILY 12/11/16 01/13/20 History Tablet] Nitroglycerin [Nitrostat] 0.4 mg SL Q5MIN PRN 12/11/16 01/13/20 History Carvedilol [Coreg] 12.5 mg PO BID #60 tab 01/15/20 Rx Isosorbide Mononitrate [Imdur] 60 mg PO DAILY #60 tab 01/15/20 Rx NIFEdipine [Procardia XL] 60 mg PO BID #60 tab 01/15/20 Rx Rosuvastatin Calcium [Crestor] 20 mg PO DAILY 01/15/20 01/15/20 History Tamsulosin HCl [Flomax] 0.4 mg PO BID #60 cap 01/15/20 Rx hydrALAZINE HCl [Hydralazine HCl] 100 mg PO BID #60 tablet 01/15/20 Rx Allergies: Penicillins Allergy (Severe, Verified 01/13/20 23:44) Anaphylaxis amoxicillin Allergy (Verified 01/13/20 23:44) Sulfa (Sulfonamide Antibiotics) Allergy (Verified 01/13/20 23:44) - Discharge Instructions Activity:: Activity as Tolerated - Follow up Plan Referrals: Thania Ivan MD [Primary Care Provider] - 7 Days Disposition: HOME Quality - Care Measures CORE MEASURES:: N/A
[2020-01-15 17:12] VITALS: BP 156/96
== END 2020-01-15 17:35 | disposition home or self-care (01) ==
LOC: ERS 19:56 → SDC/OP 21:52 → 2NO 22:14
PROVIDERS: ADMIT Family Medicine; ATTEND Family Medicine
PROC: 4A023N7 Measurement of Cardiac Sampling and Pressure, Left Heart, Percutaneous Approach (ICD-10-PCS; principal; 2020-01-13)
PROC: B2111ZZ Fluoroscopy of Multiple Coronary Arteries using Low Osmolar Contrast (ICD-10-PCS; 2020-01-13)
DX: I25.10 Atherosclerotic heart disease of native coronary artery without angina pectoris (principal); R07.89 Other chest pain; I12.9 Hypertensive chronic kidney disease with stage 1 through stage 4 chronic kidney disease, or unspecified chronic kidney disease; N18.4 Chronic kidney disease, stage 4 (severe); E78.5 Hyperlipidemia, unspecified; F14.10 Cocaine abuse, uncomplicated; E87.6 Hypokalemia; I25.2 Old myocardial infarction; E78.00 Pure hypercholesterolemia, unspecified; I42.8 Other cardiomyopathies; F32.9 Major depressive disorder, single episode, unspecified; R77.8 Other specified abnormalities of plasma proteins; Z79.82 Long term (current) use of aspirin; Z79.899 Other long term (current) drug therapy; Z88.0 Allergy status to penicillin; Z95.5 Presence of coronary angioplasty implant and graft; Z95.810 Presence of automatic (implantable) cardiac defibrillator; Z20.828 Contact with and (suspected) exposure to other viral communicable diseases
CPT/HCPCS: 36415; 71045; 80048; 80306; 82553; 85025; 85347; 85610; 85730; 87635; 90471; 90662; 93005; 93454; 94760; 96374; 96375; 96376; 99152; G0008; G0378; J0360; J1644; J2250; J2720; J3010; U0003

== ENCOUNTER 2020-07-12 14:35 | Inpatient (IN) | payer BC, SELFPAY ==
[2020-07-12 16:37] LABS: Troponin I 0.209 ng/mL (< 0.028)
[2020-07-12 17:03] VITALS: BMI 34.9
[2020-07-12] MEDS: Methocarbamol 500 MG TAB PO PRN (17:28)
[2020-07-12] MEDS ORDERED: Nitroglycerin 0.4 MG TAB (25 Tab Bottle) SL PRN (17:53)
[2020-07-12 18:58] LABS: Troponin I 0.198 ng/mL (< 0.028)
[2020-07-12] MEDS: hydrALAZINE 25 MG TAB PO SCH (20:08)
[2020-07-12] MEDS: Carvedilol 6.25 MG TAB PO SCH (20:09)
[2020-07-13 04:46] LABS: #Eosinphils 0.2 thou/uL (0.0-0.7); #Lymphocytes 1.6 thou/uL (1.20-3.40); #Monocytes 1.1 thou/uL (0.11-0.59); %Basophils 0.1 % (0.0-1.0); %Eosinophils 1.8 % (0.0-10.0); %Lymphocytes 12.3 % (21.0-51.0); %Monocytes 8.5 % (0.0-10.0); %Neutrophils 77.3 % (42.0-75.0); Hemoglobin 14.7 g/dL (14.0-18.0); Mean Corpuscular HGB CONC 32.6 g/dL (32.0-36.0); Mean Corpuscular Hemoglobin 27.1 pg (27.0-31.0); Mean Corpuscular Volume 83.2 fL (78.0-98.0); Mean Platelet Volume 7.3 fL (7.4-10.4); Platelet Count 273 thou/uL (130-400); RBC Distribution Width 14.1 % (11.5-14.5); Red Blood Cell (RBC) Count 5.42 mill/uL (4.70-6.10)
[2020-07-13 05:13] LABS: Anion Gap 13 mmol/L (10-20); BUN (Urea Nitrogen) 16 mg/dL (8.4-25.7); Calc. Creatinine Clearance 63 mL/min (70-130); Calcium 9.2 mg/dL (7.8-10.44); Carbon Dioxide 26 mmol/L (22-29); Cardiac Risk 5.4 (Less than 4.5); Chloride 101 mmol/L (98-107); Cholesterol 279 mg/dl (< 200 Desired); Glucose 105 mg/dL (70-105); HDL Cholesterol 52 mg/dL (>60 Neg Risk); LDL Cholesterol, Calculated 196 mg/dL; Potassium 3.3 mmol/L (3.5-5.1); Sodium 137 mmol/L (136-145); Triglycerides 156 mg/dL (Less than 150)
[2020-07-13] MEDS ORDERED: Potassium Chloride 20 MEQ TAB PO SCH (07:45)
[2020-07-13] MEDS: Methocarbamol 500 MG TAB PO PRN ×2 (07:55→20:18)
[2020-07-13] MEDS: NIFEdipine XL 90 MG TAB PO SCH (07:55)
[2020-07-13] MEDS: hydrALAZINE 25 MG TAB PO SCH ×3 (07:56→20:20)
[2020-07-13] MEDS: Aspirin Chewable 81 MG TAB PO SCH (07:56)
[2020-07-13] MEDS: Carvedilol 6.25 MG TAB PO SCH ×2 (07:56→20:20)
[2020-07-13] MEDS: Enoxaparin Sodium 40 MG/0.4 ML SYRINGE SC SCH (07:57)
[2020-07-13] MEDS ORDERED: traMADol HCl 50 MG TAB PO PRN (09:53)
[2020-07-13] MEDS ORDERED: Morphine 2 MG/ML VIAL SLOW IVP PRN (09:54)
[2020-07-13 13:05] LABS: SARS-CoV-2 PCR NAA for Saliva Not Detected (NotDetected)
[2020-07-13] MEDS: Acetaminophen 325 MG TAB PO PRN (17:13)
[2020-07-13] MEDS ORDERED: Atorvastatin Calcium 40 MG TAB PO SCH (21:00)
[2020-07-14] MEDS: Acetaminophen 325 MG TAB PO PRN (00:46)
[2020-07-14 05:08] LABS: #Eosinphils 0.3 thou/uL (0.0-0.7); #Lymphocytes 1.5 thou/uL (1.20-3.40); #Monocytes 0.9 thou/uL (0.11-0.59); %Basophils 0.4 % (0.0-1.0); %Lymphocytes 15.5 % (21.0-51.0); %Neutrophils 72.1 % (42.0-75.0); Hemoglobin 14.8 g/dL (14.0-18.0); Mean Corpuscular HGB CONC 31.5 g/dL (32.0-36.0); Mean Corpuscular Hemoglobin 26.2 pg (27.0-31.0); Mean Corpuscular Volume 83.1 fL (78.0-98.0); Mean Platelet Volume 7.5 fL (7.4-10.4); Platelet Count 267 thou/uL (130-400); Red Blood Cell (RBC) Count 5.64 mill/uL (4.70-6.10); White Blood Cell (WBC) Count 9.7 thou/uL (4.8-10.8)
[2020-07-14 05:32] LABS: Anion Gap 13 mmol/L (10-20); BUN (Urea Nitrogen) 20 mg/dL (8.4-25.7); Calc. Creatinine Clearance 61 mL/min (70-130); Calcium 9.3 mg/dL (7.8-10.44); Carbon Dioxide 28 mmol/L (22-29); Chloride 100 mmol/L (98-107); Glucose 87 mg/dL (70-105); Potassium 3.5 mmol/L (3.5-5.1); Sodium 137 mmol/L (136-145)
[2020-07-14] MEDS: Enoxaparin Sodium 40 MG/0.4 ML SYRINGE SC SCH (09:42)
[2020-07-14] MEDS: Methocarbamol 500 MG TAB PO PRN (09:43)
[2020-07-14] MEDS: NIFEdipine XL 90 MG TAB PO SCH (09:43)
[2020-07-14] MEDS: hydrALAZINE 25 MG TAB PO SCH (09:44)
[2020-07-14] MEDS: Carvedilol 6.25 MG TAB PO SCH (09:44)
[2020-07-14] MEDS: Aspirin Chewable 81 MG TAB PO SCH (09:44)
[2020-07-14 11:58] VITALS: BP 142/90; TEMP 99.4
== END 2020-07-14 14:08 | disposition home or self-care (01) | DRG 563 ==
LOC: ERS 14:35 → 2SW 15:14 → OBSVTOIN 07-14 12:43
PROVIDERS: ADMIT Internal Medicine; ATTEND Internal Medicine
DX: S39.012A Strain of muscle, fascia and tendon of lower back, initial encounter (principal); N18.4 Chronic kidney disease, stage 4 (severe); I13.0 Hypertensive heart and chronic kidney disease with heart failure and stage 1 through stage 4 chronic kidney disease, or unspecified chronic kidney disease; I16.0 Hypertensive urgency; M75.22 Bicipital tendinitis, left shoulder; Z20.822 Contact with and (suspected) exposure to COVID-19; I25.10 Atherosclerotic heart disease of native coronary artery without angina pectoris; N18.30 Chronic kidney disease, stage 3 unspecified; E78.5 Hyperlipidemia, unspecified; E78.00 Pure hypercholesterolemia, unspecified; F17.220 Nicotine dependence, chewing tobacco, uncomplicated; X58.XXXA Exposure to other specified factors, initial encounter; I25.2 Old myocardial infarction; Z95.5 Presence of coronary angioplasty implant and graft; Z95.810 Presence of automatic (implantable) cardiac defibrillator; Z79.899 Other long term (current) drug therapy; Z79.82 Long term (current) use of aspirin; Z82.49 Family history of ischemic heart disease and other diseases of the circulatory system; Z88.1 Allergy status to other antibiotic agents; Z88.0 Allergy status to penicillin; Z88.2 Allergy status to sulfonamides
CPT/HCPCS: 36415; 70450; 80048; 80061; 85025; 93005; 93306; 96372; G0378; J1650; U0003; U0005

== ENCOUNTER 2020-11-03 02:53 | Inpatient (IN) | payer BC, SELFPAY ==
[2020-11-03] MEDS ORDERED: niCARdipine 20MG In NaCl 0 MG/0 ML BAG ONE (03:31)
[2020-11-03] MEDS ORDERED: Ondansetron PF 4 MG/2 ML Vial IVP PRN (03:44)
[2020-11-03] MEDS ORDERED: Acetaminophen 325 MG TAB PO PRN (03:44)
[2020-11-03] MEDS ORDERED: niCARdipine 20MG In NaCl 20 MG/200 ML BAG IVPB SCH (03:45)
[2020-11-03 04:31] LABS: #Basophils 0.1 thou/uL (0.0-0.2); #Eosinphils 0.1 thou/uL (0.0-0.7); #Lymphocytes 1.7 thou/uL (1.20-3.40); #Monocytes 0.7 thou/uL (0.11-0.59); #Neutrophils 6.3 thou/uL (1.40-6.50); %Basophils 0.9 % (0.0-1.0); %Eosinophils 1.3 % (0.0-10.0); %Lymphocytes 19.1 % (21.0-51.0); %Monocytes 8.2 % (0.0-10.0); %Neutrophils 70.5 % (42.0-75.0); Hemoglobin 14.4 g/dL (14.0-18.0); Mean Corpuscular HGB CONC 32.8 g/dL (32.0-36.0); Mean Corpuscular Volume 85.2 fL (78.0-98.0); Mean Platelet Volume 6.8 fL (7.4-10.4); Platelet Count 277 thou/uL (130-400); RBC Distribution Width 13.1 % (11.5-14.5); Red Blood Cell (RBC) Count 5.16 mill/uL (4.70-6.10); White Blood Cell (WBC) Count 8.9 thou/uL (4.8-10.8)
[2020-11-03 04:44] LABS: Anion Gap 14 mmol/L (10-20); BUN (Urea Nitrogen) 22 mg/dL (8.4-25.7); Calc. Creatinine Clearance 0 mL/min (70-130); Calcium 9.4 mg/dL (7.8-10.44); Carbon Dioxide 27 mmol/L (22-29); Chloride 103 mmol/L (98-107); Glucose 112 mg/dL (70-105); Potassium 3.3 mmol/L (3.5-5.1); Sodium 141 mmol/L (136-145)
[2020-11-03 04:50] LABS: Troponin I 0.109 ng/mL (< 0.028)
[2020-11-03 05:22] LABS: SARS-CoV-2 NAA Rapid Test Not Detected (NotDetected)
[2020-11-03] MEDS ORDERED: niCARdipine 20MG In NaCl 20 MG/200 ML BAG ONE (07:46)
[2020-11-03] MEDS ORDERED: Morphine 4 MG/ML VIAL ONE (07:46)
[2020-11-03] MEDS: Morphine 4 MG/ML VIAL SLOW IVP PRN ×2 (07:54→14:37)
[2020-11-03 07:57] LABS: Troponin I 0.101 ng/mL (< 0.028)
[2020-11-03] MEDS ORDERED: NIFEdipine XL 60 MG TAB PO SCH ×2 (09:00→09:15)
[2020-11-03] MEDS ORDERED: Carvedilol 6.25 MG TAB PO SCH ×2 (09:00→09:15)
[2020-11-03] MEDS ORDERED: Aspirin 81 mg Enteric Coated Tablet PO SCH ×2 (09:00→09:15)
[2020-11-03] MEDS ORDERED: Nitroglycerin 0.4 MG TAB (25 Tab Bottle) SL PRN (09:03)
[2020-11-03] MEDS ORDERED: hydrALAZINE 20 MG/ML VIAL SLOW IVP PRN (09:04)
[2020-11-03] MEDS ORDERED: Potassium Chloride 20 MEQ TAB PO SCH ×2 (09:15→17:00)
[2020-11-03] MEDS ORDERED: Famotidine 20 MG TAB ONE (09:38)
[2020-11-03] MEDS ORDERED: Aspirin 81 mg Enteric Coated Tablet ONE (09:38)
[2020-11-03] MEDS ORDERED: Potassium Chloride 20 MEQ TAB ONE (09:38)
[2020-11-03] MEDS: Famotidine 20 MG TAB PO SCH (09:47)
[2020-11-03 14:10] VITALS: BMI 35.2
[2020-11-03] MEDS ORDERED: Polyethylene Glycol 3350 17 GM Packet PO SCH (15:30)
[2020-11-03] MEDS ORDERED: Cyclobenzaprine 10 MG TAB PO PRN (16:26)
[2020-11-03] MEDS ORDERED: HYDROcodone/Acetaminophen 5/325 mg Tablet PO PRN (16:36)
[2020-11-03 17:47] LABS: Troponin I 0.118 ng/mL (< 0.028)
[2020-11-03] MEDS: Senokot S 8.6-50 MG TAB PO SCH (20:19)
[2020-11-03] MEDS: Carvedilol 6.25 MG TAB PO SCH (20:19)
[2020-11-04 04:44] LABS: #Basophils 0.1 thou/uL (0.0-0.2); #Eosinphils 0.2 thou/uL (0.0-0.7); #Lymphocytes 1.8 thou/uL (1.20-3.40); #Monocytes 0.8 thou/uL (0.11-0.59); #Neutrophils 5.3 thou/uL (1.40-6.50); %Basophils 0.7 % (0.0-1.0); %Eosinophils 2.7 % (0.0-10.0); %Lymphocytes 21.5 % (21.0-51.0); %Monocytes 10.1 % (0.0-10.0); %Neutrophils 64.9 % (42.0-75.0); Hemoglobin 13.3 g/dL (14.0-18.0); Mean Corpuscular HGB CONC 30.9 g/dL (32.0-36.0); Mean Corpuscular Hemoglobin 26.7 pg (27.0-31.0); Mean Corpuscular Volume 86.4 fL (78.0-98.0); Mean Platelet Volume 7.1 fL (7.4-10.4); Platelet Count 261 thou/uL (130-400); RBC Distribution Width 13.1 % (11.5-14.5); Red Blood Cell (RBC) Count 4.97 mill/uL (4.70-6.10); White Blood Cell (WBC) Count 8.2 thou/uL (4.8-10.8)
[2020-11-04 05:19] LABS: Anion Gap 13 mmol/L (10-20); BUN (Urea Nitrogen) 20 mg/dL (8.4-25.7); Calc. Creatinine Clearance 63 mL/min (70-130); Carbon Dioxide 26 mmol/L (22-29); Chloride 104 mmol/L (98-107); Potassium 3.6 mmol/L (3.5-5.1); Sodium 139 mmol/L (136-145)
[2020-11-04 05:20] LABS: Calcium 9.3 mg/dL (7.8-10.44); Glucose 95 mg/dL (70-105)
[2020-11-04 07:54] VITALS: TEMP 98.6
[2020-11-04] MEDS: Famotidine 20 MG TAB PO SCH (08:46)
[2020-11-04] MEDS: Senokot S 8.6-50 MG TAB PO SCH (08:47)
[2020-11-04 08:48] VITALS: BP 174/106
[2020-11-04] MEDS: Carvedilol 6.25 MG TAB PO SCH (08:48)
[2020-11-04] MEDS ORDERED: NIFEdipine XL 60 MG TAB PO SCH (09:00)
[2020-11-04] MEDS ORDERED: Aspirin 81 mg Enteric Coated Tablet PO SCH (09:00)
[2020-11-04] MEDS ORDERED: Heparin 5,000 UNITS/ML VIAL SC SCH (09:00)
[2020-11-04] MEDS ORDERED: Polyethylene Glycol 3350 17 GM Packet PO SCH (09:00)
== END 2020-11-04 10:50 | disposition home or self-care (01) | DRG 281 ==
LOC: ERS 02:53 → EEVIPCON 03:47 → ERHOLD 03:47 → 2NO 13:47
PROVIDERS: ADMIT Internal Medicine; ATTEND Internal Medicine
DX: I16.1 Hypertensive emergency (principal); I21.A1 Myocardial infarction type 2; I50.32 Chronic diastolic (congestive) heart failure; N18.4 Chronic kidney disease, stage 4 (severe); F17.220 Nicotine dependence, chewing tobacco, uncomplicated; M25.512 Pain in left shoulder; Z20.822 Contact with and (suspected) exposure to COVID-19; E78.5 Hyperlipidemia, unspecified; I13.0 Hypertensive heart and chronic kidney disease with heart failure and stage 1 through stage 4 chronic kidney disease, or unspecified chronic kidney disease; I25.10 Atherosclerotic heart disease of native coronary artery without angina pectoris; F32.9 Major depressive disorder, single episode, unspecified; Z88.1 Allergy status to other antibiotic agents; Z88.0 Allergy status to penicillin; Z88.2 Allergy status to sulfonamides; Z79.82 Long term (current) use of aspirin; Z79.899 Other long term (current) drug therapy; Z82.3 Family history of stroke; I25.2 Old myocardial infarction; Z95.810 Presence of automatic (implantable) cardiac defibrillator; Z86.73 Personal history of transient ischemic attack (TIA), and cerebral infarction without residual deficits; Z95.5 Presence of coronary angioplasty implant and graft
CPT/HCPCS: 36415; 70450; 80048; 85025; J2270; U0002

== ENCOUNTER 2021-08-16 01:03 | Emergency (ER) | payer OTHER, SELFPAY ==
[2021-08-16] MEDS ORDERED: Ondansetron PF 4 MG/2 ML Vial ONE (02:57)
[2021-08-16] MEDS ORDERED: Morphine 4 MG/ML VIAL ONE ×2 (02:57→04:48)
[2021-08-16 03:20] LABS: #Eosinphils 0.2 thou/uL (0.0-0.7); #Lymphocytes 1.4 thou/uL (1.20-3.40); #Monocytes 0.8 thou/uL (0.11-0.59); #Neutrophils 4.5 thou/uL (1.40-6.50); %Basophils 0.3 % (0.0-1.0); %Eosinophils 2.8 % (0.0-10.0); %Lymphocytes 20.8 % (21.0-51.0); %Neutrophils 65.1 % (42.0-75.0); Hemoglobin 13.6 g/dL (14.0-18.0); Mean Corpuscular HGB CONC 33.7 g/dL (32.0-36.0); Mean Corpuscular Hemoglobin 28.3 pg (27.0-31.0); Mean Corpuscular Volume 83.9 fL (78.0-98.0); Mean Platelet Volume 7.2 fL (7.4-10.4); Platelet Count 233 thou/uL (130-400); RBC Distribution Width 13.7 % (11.5-14.5); Red Blood Cell (RBC) Count 4.83 mill/uL (4.70-6.10); White Blood Cell (WBC) Count 6.8 thou/uL (4.8-10.8)
[2021-08-16 04:40] LABS: ALT (SGPT) 15 U/L (8-55); AST (SGOT) 16 U/L (5-34); Albumin 3.9 g/dL (3.5-5.0); Alkaline Phosphatase 93 U/L (40-110); Anion Gap 13 mmol/L (10-20); BUN (Urea Nitrogen) 18 mg/dL (8.4-25.7); Bilirubin, Total 0.2 mg/dL (0.2-1.2); Calc. Creatinine Clearance 0 mL/min (70-130); Carbon Dioxide 24 mmol/L (22-29); Chloride 107 mmol/L (98-107); Estimated GFR 50; Globulin 3.8 g/dL (2.4-3.5); Glucose 112 mg/dL (70-105); Potassium 3.5 mmol/L (3.5-5.1); Protein, Total 7.7 g/dL (6.0-8.3); Sodium 140 mmol/L (136-145)
[2021-08-16] MEDS ORDERED: cloNIDine 0.1 MG TAB ONE (04:48)
[2021-08-16] MEDS ORDERED: ISOVUE-370 76%-LOCM 1 ML ONE (08:00)
== END 2021-08-16 08:07 | disposition home or self-care (01) ==
LOC: ERS 01:03
DX: S29.012A Strain of muscle and tendon of back wall of thorax, initial encounter (principal); M67.431 Ganglion, right wrist; I12.9 Hypertensive chronic kidney disease with stage 1 through stage 4 chronic kidney disease, or unspecified chronic kidney disease; N18.4 Chronic kidney disease, stage 4 (severe); E78.5 Hyperlipidemia, unspecified; F17.220 Nicotine dependence, chewing tobacco, uncomplicated; I25.10 Atherosclerotic heart disease of native coronary artery without angina pectoris; I25.2 Old myocardial infarction; W20.8XXA Other cause of strike by thrown, projected or falling object, initial encounter; Y92.69 Other specified industrial and construction area as the place of occurrence of the external cause; Z86.73 Personal history of transient ischemic attack (TIA), and cerebral infarction without residual deficits; Z95.5 Presence of coronary angioplasty implant and graft; Z79.82 Long term (current) use of aspirin; Z79.899 Other long term (current) drug therapy
CPT/HCPCS: 36415; 70450; 71260; 72125; 74177; 80053; 83605; 85025; 93923; 96374; 96375; 96376; J2270; J2405; Q9966

== ENCOUNTER 2022-02-14 00:20 | Inpatient (IN) | payer SELFPAY ==
[2022-02-14 00:48] LABS: #Eosinphils 0.2 thou/uL (0.0-0.7); #Lymphocytes 1.6 thou/uL (1.20-3.40); #Monocytes 0.9 thou/uL (0.11-0.59); #Neutrophils 5.1 thou/uL (1.40-6.50); %Basophils 0.1 % (0.0-1.0); %Eosinophils 2.1 % (0.0-10.0); %Lymphocytes 20.9 % (21.0-51.0); %Neutrophils 65.9 % (42.0-75.0); Hemoglobin 14.1 g/dL (14.0-18.0); Mean Corpuscular HGB CONC 34.8 g/dL (32.0-36.0); Mean Corpuscular Hemoglobin 28.4 pg (27.0-31.0); Mean Corpuscular Volume 81.7 fl (78.0-98.0); Mean Platelet Volume 7.4 fL (7.4-10.4); Platelet Count 243 10x3/uL (130-400); RBC Distribution Width 13.9 % (11.5-14.5); Red Blood Cell (RBC) Count 4.96 mill/uL (4.70-6.10); White Blood Cell (WBC) Count 7.7 10x3/uL (4.8-10.8)
[2022-02-14] MEDS ORDERED: Ondansetron PF 4 MG/2 ML Vial ONE (00:59)
[2022-02-14] MEDS ORDERED: Nitroglycerin 0.4 MG TAB 1 EACH ONE ×2 (00:59→02:27)
[2022-02-14] MEDS ORDERED: Aspirin Chewable 81 MG TAB ONE (00:59)
[2022-02-14 01:11] LABS: ALT (SGPT) 21 U/L (8-55); AST (SGOT) 18 U/L (5-34); Albumin 4.1 g/dL (3.5-5.0); Alkaline Phosphatase 86 U/L (40-110); Anion Gap 12 mmol/L (10-20); BUN (Urea Nitrogen) 20 mg/dL (8.4-25.7); Bilirubin, Total 0.4 mg/dL (0.2-1.2); Calc. Creatinine Clearance 0 mL/min (70-130); Calcium 9.1 mg/dL (7.8-10.44); Carbon Dioxide 27 mmol/L (22-29); Chloride 104 mmol/L (98-107); Estimated GFR 46; Globulin 3.7 g/dL (2.4-3.5); Glucose 105 mg/dL (70-105); Potassium 3.6 mmol/L (3.5-5.1); Protein, Total 7.8 g/dL (6.0-8.3); Sodium 139 mmol/L (136-145)
[2022-02-14 01:32] LABS: CKMB 1.5 ng/mL (0-6.6)
[2022-02-14] MEDS ORDERED: Nitroglycerin 2% Ointment 1 INCH/1 GM Packet ONE ×2 (03:42→05:57)
[2022-02-14 04:01] VITALS: BMI 37.6
[2022-02-14] MEDS ORDERED: hydrALAZINE 20 MG/ML VIAL ONE ×2 (04:43→08:50)
[2022-02-14] MEDS: hydrALAZINE 20 MG/ML VIAL SLOW IVP PRN ×2 (04:46→08:54)
[2022-02-14 05:39] LABS: Troponin I 0.126 ng/mL (< 0.028)
[2022-02-14] MEDS: Nitroglycerin 2% Ointment 1 INCH/1 GM Packet TOP SCH ×2 (06:00→15:16)
[2022-02-14 08:32] LABS: Troponin I 0.124 ng/mL (< 0.028)
[2022-02-14] MEDS ORDERED: Aspirin 81 mg Enteric Coated Tablet PO SCH (09:00)
[2022-02-14] MEDS ORDERED: Morphine 4 MG/ML VIAL ONE (12:35)
[2022-02-14] MEDS: hydrALAZINE 25 MG TAB PO SCH ×2 (15:13→19:55)
[2022-02-14] MEDS: Carvedilol 6.25 MG TAB PO SCH (19:54)
[2022-02-14] MEDS: Atorvastatin Calcium 40 MG TAB PO SCH (19:55)
[2022-02-14 19:59] LABS: Amphetamine Not Detected (NotDetected); Barbiturates Screen Not Detected (NotDetected); Benzodiazepine Screen Not Detected (NotDetected); Cocaine Metabolite Screen Not Detected (NotDetected); Methadone Not Detected (NotDetected); Methamphetamine Not Detected (NotDetected); Opiate Screen Not Detected (NotDetected); Oxycodone Screen Not Detected (NotDetected); Phencyclidine (PCP) Not Detected (NotDetected); THC/Cannabinoid Screen Not Detected (NotDetected); Tricyclic Screen Not Detected (NotDetected)
[2022-02-15] MEDS: hydrALAZINE 20 MG/ML VIAL SLOW IVP PRN (00:14)
[2022-02-15] MEDS: hydrALAZINE 25 MG TAB PO SCH ×3 (08:04→20:21)
[2022-02-15] MEDS: Carvedilol 6.25 MG TAB PO SCH ×2 (08:04→16:48)
[2022-02-15] MEDS: Aspirin 81 mg Enteric Coated Tablet PO SCH (08:04)
[2022-02-15] MEDS ORDERED: NIFEdipine XL 90 MG TAB PO SCH (09:00)
[2022-02-15 14:22] LABS: Anion Gap 17 mmol/L (10-20); BUN (Urea Nitrogen) 20 mg/dL (8.4-25.7); Calc. Creatinine Clearance 75 mL/min (70-130); Calcium 9.2 mg/dL (7.8-10.44); Carbon Dioxide 22 mmol/L (22-29); Chloride 105 mmol/L (98-107); Estimated GFR 42; Glucose 117 mg/dL (70-105); Potassium 4.5 mmol/L (3.5-5.1); Sodium 139 mmol/L (136-145)
[2022-02-15 15:20] LABS: Creatinine, Urine 116.73 mg/dL (63-166)
[2022-02-15] MEDS: Atorvastatin Calcium 40 MG TAB PO SCH (20:21)
[2022-02-16] MEDS: Carvedilol 6.25 MG TAB PO SCH (08:02)
[2022-02-16] MEDS: hydrALAZINE 25 MG TAB PO SCH ×2 (08:02→15:05)
[2022-02-16] MEDS: Aspirin 81 mg Enteric Coated Tablet PO SCH (08:03)
[2022-02-16] MEDS ORDERED: NIFEdipine XL 60 MG TAB PO SCH (09:00)
[2022-02-16 11:57] VITALS: BP 134/74; TEMP 98.3
== END 2022-02-16 15:10 | disposition home or self-care (01) | DRG 313 ==
LOC: ERS 00:20 → ERHOLD 02:17 → 2SW 14:06 → OBSVTOIN 02-15 08:17
PROVIDERS: ADMIT Family Medicine; ATTEND Family Medicine
PROC: 4B02XTZ Measurement of Cardiac Defibrillator, External Approach (ICD-10-PCS; principal; 2022-02-14)
DX: R07.89 Other chest pain (principal); I42.8 Other cardiomyopathies; N18.4 Chronic kidney disease, stage 4 (severe); N17.9 Acute kidney failure, unspecified; I13.0 Hypertensive heart and chronic kidney disease with heart failure and stage 1 through stage 4 chronic kidney disease, or unspecified chronic kidney disease; Z20.822 Contact with and (suspected) exposure to COVID-19; I16.0 Hypertensive urgency; E66.9 Obesity, unspecified; I25.10 Atherosclerotic heart disease of native coronary artery without angina pectoris; D63.1 Anemia in chronic kidney disease; I50.9 Heart failure, unspecified; Z95.810 Presence of automatic (implantable) cardiac defibrillator; Z68.37 Body mass index [BMI] 37.0-37.9, adult; Z88.1 Allergy status to other antibiotic agents; Z88.0 Allergy status to penicillin; Z95.5 Presence of coronary angioplasty implant and graft; I25.2 Old myocardial infarction; Z79.899 Other long term (current) drug therapy; Z79.82 Long term (current) use of aspirin; Z82.3 Family history of stroke; Z82.49 Family history of ischemic heart disease and other diseases of the circulatory system
CPT/HCPCS: 36415; 71045; 76770; 80048; 80053; 80306; 82553; 82570; 84156; 84484; 85025; 93005; 93306; 94760; 96374; 96375; 96376; G0378; J0360; J2270; J2405; U0003; U0005